=== PATIENT | female | born 1960 | race Caucasian/White ===

== ENCOUNTER 2018-01-29 23:30 | Emergency (ER) | payer OTHER ==
[~2018-01-29] VITALS: Ht 157.5 cm; Wt 113.4 kg
--- NOTE | 2018-01-29 23:56 | NUR ---
PT ARRIVED VIA EMS FROM [facility] BY DR PARIKH FOR REPORTED GENARALIZED WEAKNESS. PT DENIES WEAKNESS, BUT STATES SHE FEELS ITCHY ALL OVER "LIKE THERE ARE BUGS CRAWLING ALL OVER" AND FEELS RESTLESS. APPEARS ANXIOUS AND AGITATED, STATING SHE CANT KEEP STILL AND "NEEDS TO MOVE"
--- NOTE | 2018-01-30 00:04 | NUR ---
DR JOHNY JOVEL MD AT BEDSIDE FOR MSE.
[2018-01-30] MEDS ORDERED: LEVO25TA9 PO (00:09)
[2018-01-30] MEDS ORDERED: METO50TA16 PO (00:09)
[2018-01-30] MEDS ORDERED: ALBU18HF2 IH (00:09)
[2018-01-30] MEDS ORDERED: DIVA500T2 PO (00:09)
[2018-01-30] MEDS ORDERED: LEVO200T9 PO (00:09)
[2018-01-30] MEDS ORDERED: diphenhydrAMINE 50 MG/1 ML VIAL ONE ×2 (00:09→02:44)
[2018-01-30] MEDS ORDERED: OMEP20CA10 PO (00:09)
[2018-01-30] MEDS ORDERED: DOCU100C36 PO (00:09)
[2018-01-30] MEDS ORDERED: QUET200T PO (00:09)
[2018-01-30] MEDS ORDERED: SIMV20TA6 PO (00:09)
[2018-01-30] MEDS ORDERED: ASPI-605 PO (00:09)
[2018-01-30] MEDS ORDERED: LORA-259 PO (00:09)
[2018-01-30] MEDS ORDERED: diphenhydrAMINE 50 MG/1 ML VIAL IM ONE ×2 (00:15→02:00)
--- NOTE | 2018-01-30 00:24 | NUR ---
LAB AT BEDSIDE FOR BLOOD DRAW.
--- NOTE | 2018-01-30 00:31 | NUR ---
XRAY AT PT BEDSIDE.
[2018-01-30 00:32] LABS: BASOPHILS # (AUTO) 0.1 K/uL (0.0-8.0); BASOPHILS % (AUTO) 1.2 % (0.0-2.0); EOSINOPHILS # (AUTO) 0.1 K/uL (0.0-0.7); EOSINOPHILS % (AUTO) 2.3 % (0.0-7.0); HEMATOCRIT 39.6 % (31.2-41.9); HEMOGLOBIN 13.5 g/dL (10.9-14.3); LYMPHOCYTES # (AUTO) 2.7 K/uL (20.0-40.0); MEAN CORPUSCULAR HEMOGLOBIN 30.6 uug (24.7-32.8); MEAN CORPUSCULAR HGB CONC 34 g/dL (32.3-35.6); MEAN CORPUSCULAR VOLUME 90.1 fL (75.5-95.3); MONOCYTES # (AUTO) 0.8 K/uL (2.0-10.0); MONOCYTES % (AUTO) 12.2 % (0.0-11.0); NEUTROPHILS # (AUTO) 2.7 K/uL (1.8-8.9); NEUTROPHILS % (AUTO) 42.3 % (38.5-71.5); PLATELET COUNT (AUTO) 210 K/uL (179-408); WHITE BLOOD COUNT (AUTO) 6.4 K/uL (3.8-11.8)
--- NOTE | 2018-01-30 00:33 | NUR ---
CALLED STOCK DIGGER TO GET 1:1 SITTER.
[2018-01-30 00:46] LABS: ETHANOL < 3 MG/DL (0-0)
[2018-01-30 00:48] LABS: ALANINE AMINOTRANSFERASE 19 U/L (14-59); ALKALINE PHOSPHATASE 45 U/L (50-136); ASPARTATE AMINOTRANSFERASE 12 U/L (15-37); BILIRUBIN,DIRECT 0.1 mg/dL (0.0-0.2); BILIRUBIN,TOTAL 0.3 mg/dL (0.2-1.0); CARBON DIOXIDE 28 mmol/L (21-32); CHLORIDE 107 mmol/L (98-107); CREATININE 0.8 mg/dL (0.6-1.3); GLUCOSE 96 mg/dL (74-106); POTASSIUM 3.8 mmol/L (3.5-5.1); TOTAL PROTEIN, SERUM 6.9 g/dL (6.4-8.2); UREA NITROGEN, BLOOD 14 mg/dL (7-18)
[2018-01-30 00:49] LABS: ACETAMINOPHEN < 2.0 ug/mL (10-30)
--- NOTE | 2018-01-30 01:00 | NUR ---
PT TAKEN TO BATHROOM VIA WHEELCHAIR. PATIENT IS 1X ASSIST. URINE PROVIDED AND SENT TO LAB.
--- NOTE | 2018-01-30 01:06 | NUR ---
CLARENCE NGUYEN CALLED FOR CRISIS EVAL. LEFT A MESSAGE. PENDING CALL BACK
[2018-01-30 01:14] LABS: *BILIRUBIN,URIN NEGATIVE (NEGATIVE); *BLOOD, URINE Trace-lysed (NEGATIVE); *CLARITY,URINE CLEAR (CLEAR); *COLOR,URINE YELLOW (YELLOW); *KETONES,URINE TRACE (NEGATIVE); *PROTEIN,URINE TRACE (NEGATIVE); *UROBILINOGEN,URINE 0.2 E.U./dl (NORMAL); LEUKOCYTE ESTERASE ,URINE TRACE (NEGATIVE); NITRITE, URINE NEGATIVE (NEGATIVE); UGLUCOSE NEGATIVE (NEGATIVE)
--- NOTE | 2018-01-30 01:26 | NUR ---
PT REPOSITIONED FOR COMFORT, AND WATCHING TV. NO ACUTE DISTRESS NOTED.
[2018-01-30 01:28] LABS: *AMPHETAMINE, URINE NEGATIVE (NEGATIVE); *BARBITURATE, URINE NEGATIVE (NEGATIVE); *CANNABINOID, URINE NEGATIVE (NEGATIVE); *COCCAINE, URINE NEGATIVE (NEGATIVE); *OPIATE, URINE NEGATIVE (NEGATIVE); *PHENCYCLIDINE SCREEN,URINE NEGATIVE (NEGATIVE)
[2018-01-30 01:33] LABS: BACTERIA,URINE NONE SEEN /HPF (NONE SEEN); RBC,URINE 0-3 /HPF (0-3); SQUAMOUS EPITHELIAL CELL,UR FEW /HPF (NONE SEEN)
--- NOTE | 2018-01-30 01:41 | NUR ---
SPOKE TO CLARENCE NGUYEN, ETA 0500 FOR EVAL.
--- NOTE | 2018-01-30 02:28 | NUR ---
PT RESTING IN BED W/ EYES CLOSED. NO SIGNS OF ACUTE DISTRESS NOTED.
--- NOTE | 2018-01-30 03:10 | NUR ---
PT MOVED TO WHEELCHAIR PER PT REQUEST, AND PROVIDED SNACK.
--- NOTE | 2018-01-30 03:45 | NUR ---
PT BACK IN BED AND WATCHING TV. PT STATES "I JUST DONT WANT TO LIVE LIKE THIS ANYMORE" BUT REFUSES TO ELABORATE WHEN ASKED.
[2018-01-30] MEDS ORDERED: LORAZEPAM 2 MG/1 ML VIAL ONE ×2 (04:08→10:26)
[2018-01-30] MEDS: LORAZEPAM 0.5 MG TABLET PO ONE ×2 (04:15→06:04)
--- NOTE | 2018-01-30 05:22 | NUR ---
CLARENCE NGUYEN AT BEDSIDE FOR EVAL.
[2018-01-30] MEDS ORDERED: OLANZAPINE 5 MG TABLET PO ONE (05:45)
[2018-01-30] MEDS ORDERED: CETIRIZINE HCL 10 MG TABLET ONE (05:47)
[2018-01-30] MEDS ORDERED: OLANZAPINE 5 MG TABLET ONE (05:49)
--- NOTE | 2018-01-30 06:05 | NUR ---
PENDING ADMISSION APPROVAL FROM [facility] FOR VOLUNTARY ADMIT PER CLARENCE NGUYEN. SUMMARY REPORT FAXED. PENDING RESPONSE.
[2018-01-30] MEDS ORDERED: LORAZEPAM 2 MG/1 ML VIAL IM ONE ×2 (06:15→10:30)
--- NOTE | 2018-01-30 07:18 | NUR ---
REPORT GIVEN TO SCOTT OSORIO.
--- NOTE | 2018-01-30 08:06 | NUR ---
PT IS SLEEPING IN BED COMFORTABLY. NO S/S OF ACUTE DISTRESS AT THIS TIME.
--- NOTE | 2018-01-30 09:30 | NUR ---
PT D/C'd FROM [facility] ER VOLUNTARY ADMISSION TO [facility] ACCORDING DR JOHNY HERRMANN AND CLARENCE ALMANZAR.
--- NOTE | 2018-01-30 09:34 | NUR ---
REPORT WAS GIVEN TO SCOTT GRANT FROM [facility]. PT WAS TRANSFERED TO [facility] , UNIT P-6, ROOM 606B, VIA BLS AMBULANCE. REPORT WAS GIVEN TO AMBULANCE EMT.
[2018-01-30 10:43] VITALS: BP 152/88
== END 2018-01-30 10:54 | disposition home or self-care (01) ==
LOC: ER 23:39
DX: Z04.6 Encounter for general psychiatric examination, requested by authority (principal); F32.9 Major depressive disorder, single episode, unspecified; I10 Essential (primary) hypertension; E78.5 Hyperlipidemia, unspecified; J45.909 Unspecified asthma, uncomplicated; K21.9 Gastro-esophageal reflux disease without esophagitis; E03.9 Hypothyroidism, unspecified; G89.29 Other chronic pain; Z88.0 Allergy status to penicillin; Z91.041 Radiographic dye allergy status; Z79.899 Other long term (current) drug therapy; Z79.82 Long term (current) use of aspirin
CPT/HCPCS: 36415; 71045; 80307; 85025; 93005; A4663; G0480; G0480-TC; J1200; J2060

== ENCOUNTER 2018-05-29 17:19 | Inpatient (IN) | payer OTHER ==
[~2018-05-29] VITALS: Ht 157.5 cm; Wt 136.1 kg
[~2018-05-29 17:19] MED LIST: ALBU18HF2 IH; ASPI-605 PO; DIVA500T2 PO; DOCU100C36 PO; LEVO200T9 PO; LEVO25TA9 PO; LORA-259 PO; METO50TA16 PO; OMEP20CA10 PO; QUET200T PO; SIMV20TA6 PO
[2018-05-29] MEDS ORDERED: DIPH50CA38 PO (17:58)
[2018-05-29] MEDS ORDERED: OLAN10TA3 PO (17:58)
[2018-05-29] MEDS ORDERED: ESCI10TA55 PO (17:58)
[2018-05-29] MEDS ORDERED: CLOT45CR7 TOP (17:58)
[2018-05-29] MEDS ORDERED: MELO-107 PO (17:59)
[2018-05-29] MEDS ORDERED: MORPHINE SULFATE 2 MG/1 ML DISP.SYRIN IM ONE (18:00)
[2018-05-29] MEDS ORDERED: ONDANSETRON HCL 4 MG TABLET PO ONE (18:00)
[2018-05-29] MEDS ORDERED: ONDANSETRON 4 MG/2 ML VIAL ONE (18:20)
[2018-05-29] MEDS ORDERED: MORPHINE SULFATE 4 MG/1 ML DISP.SYRIN ONE (18:20)
[2018-05-29] MEDS ORDERED: MORPHINE SULFATE 2 MG/1 ML DISP.SYRIN ONE (18:21)
--- NOTE | 2018-05-29 19:00 | NUR ---
Received handoff report from Ryann CHAVEZ. Assumed care of pt at this time. Pt is resting in bed, eating sandwich. Vital signs stable. NAD noted.
--- NOTE | 2018-05-29 19:11 | NUR ---
Paged [facility] for MD to MD call.
--- NOTE | 2018-05-29 19:30 | NUR ---
Paged [facility] for Panel Call.
[2018-05-29] MEDS ORDERED: OXYCODONE/APAP 5-325 MG TABLET PO ONE (20:00)
[2018-05-29] MEDS ORDERED: OXYCODONE/APAP 5-325 MG TABLET ONE (20:08)
--- NOTE | 2018-05-29 20:13 | NUR ---
Pt. admitted to Med/Surg , under care of Dr. Cachorro Foster. Diagnosis: Intractable Back Pain. Belongs List completed. MRSA swab done. Report given to Alma CHAVEZ.
[2018-05-29] MEDS ORDERED: ALBUTEROL SULFATE 8 GM HFA.AER.AD IH PRN (20:15)
[2018-05-29] MEDS ORDERED: DIVALPROEX 500 MG TABLET.DR PO SCH (20:15)
[2018-05-29] MEDS ORDERED: ZOLPIDEM 5 MG TABLET PO PRN (20:30)
[2018-05-29] MEDS ORDERED: HYDROCODONE/APAP 10-325 MG TABLET PO PRN (20:30)
[2018-05-29] MEDS ORDERED: MAGNESIUM HYDROXIDE 30 ML LIQUID UDC PO PRN (20:30)
[2018-05-29] MEDS ORDERED: ALBUTEROL SULFATE 2.5 MG/3 ML NEBU NEB PRN (20:30)
[2018-05-29] MEDS ORDERED: Z GUARD REMEDY PASTE 57 GM TUBE TOP PRN (20:30)
[2018-05-29] MEDS ORDERED: HYDROCODONE/APAP 5-325MG TABLET PO PRN (20:30)
[2018-05-29] MEDS ORDERED: ACETAMINOPHEN 325 MG TABLET PO PRN (20:30)
[2018-05-29 20:49] VITALS: BP 138/61
[2018-05-29] MEDS: METOPROLOL TARTRATE 50 MG TABLET PO SCH (20:53)
[2018-05-29] MEDS: OLANZAPINE 5 MG TABLET PO SCH (20:53)
[2018-05-29] MEDS: ENOXAPARIN SODIUM 40 MG/0.4 ML DISP.SYRIN SQ SCH (20:56)
[2018-05-29] MEDS ORDERED: diphenhydrAMINE 50 MG CAPSULE PO SCH (21:00)
[2018-05-29] MEDS ORDERED: diphenhydrAMINE 50 MG CAPSULE PO PRN (21:00)
--- NOTE | 2018-05-29 21:00 | NUR ---
RECEIVED PT FROM ER VIA [facility]. PT IS AWAKE, ALERT, AND ORIENTEDX4. PT ADMITTED TO MED SURG UNDER THE CARE OF DR. TED SANDOVAL.DX:INTRACTABLE BACK PAIN. BELONGING LIST DONE. ADMISSION PROCESS AND CARE PLAN INITIATED. USP ASSESSMENT DONE. PT HAD BRUISE ON HER BACK AND A PICTURE OF HER RIGHT LEGS. CALL LIGHT WITHIN REACH. WILL CONTINUE TO MONITOR.
[2018-05-30] MEDS: ONDANSETRON 4 MG/2 ML VIAL IV PRN ×3 (01:39→16:13)
[2018-05-30 04:45] VITALS: BP 141/57
[2018-05-30 04:46] VITALS: BP 130/58
[2018-05-30] MEDS: MORPHINE SULFATE 2 MG/1 ML DISP.SYRIN IV PRN (04:48)
--- NOTE | 2018-05-30 06:12 | NUR ---
PT SLEPT THROUGHOUT THE SHIFT. PT SHOWS NO SIGNS OF DISTRESS. PT IV INTACT AND PATENT. PRESCRIBED MEDICATION GIVEN AND PT TOLERATED IT WELL.PAIN MANAGEMENT DONE.PT GIVEN ZOFRAN AT 0139H FOR NAUSEOUS. GIVEN NORCO 5-325MG AT 0008H AND MORPHINE AT 0448H FOR SEVERE PAIN. SHE COMPLAIN OF GENERALIZED PAIN AND PAIN ON HER HEAD. SAFETY AND COMFORT PROVIDED. ALL NEEDS ARE MET. WILL ENDORSE ACCORDINGLY TO INCOMING DAYSHIFT NURSE.
[2018-05-30] MEDS ORDERED: LEVOTHYROXINE SODIUM 25 MCG TABLET PO SCH (07:00)
[2018-05-30] MEDS ORDERED: LEVOTHYROXINE SODIUM 200 MCG TABLET PO SCH (07:00)
[2018-05-30 07:14] LABS: BASOPHILS # (AUTO) 0.1 K/uL (0.0-8.0); BASOPHILS % (AUTO) 0.7 % (0.0-2.0); EOSINOPHILS # (AUTO) 0.1 K/uL (0.0-0.7); EOSINOPHILS % (AUTO) 0.7 % (0.0-7.0); HEMATOCRIT 40.9 % (31.2-41.9); HEMOGLOBIN 13.4 g/dL (10.9-14.3); LYMPHOCYTES # (AUTO) 1.2 K/uL (20.0-40.0); LYMPHOCYTES % (AUTO) 14.7 % (20.5-51.5); MEAN CORPUSCULAR HEMOGLOBIN 29.7 uug (24.7-32.8); MEAN CORPUSCULAR HGB CONC 33 g/dL (32.3-35.6); MEAN CORPUSCULAR VOLUME 90.6 fL (75.5-95.3); MONOCYTES # (AUTO) 0.5 K/uL (2.0-10.0); MONOCYTES % (AUTO) 6.5 % (0.0-11.0); NEUTROPHILS # (AUTO) 6.3 K/uL (1.8-8.9); NEUTROPHILS % (AUTO) 77.4 % (38.5-71.5); PLATELET COUNT (AUTO) 250 K/uL (179-408); RED BLOOD CELL COUNT(AUTO) 4.52 MIL/uL (3.63-4.92); WHITE BLOOD COUNT (AUTO) 8.2 K/uL (3.8-11.8)
[2018-05-30 07:32] LABS: CARBON DIOXIDE 28 mmol/L (21-32); CHLORIDE 107 mmol/L (98-107); CHOLESTEROL 225 mg/dL (<200); CREATININE 0.7 mg/dL (0.6-1.3); GLUCOSE 125 mg/dL (74-106); HDL CHOLESTEROL 60 mg/dL (40-60); MAGNESIUM 2.2 mg/dL (1.8-2.4); PHOSPHOROUS 5.1 mg/dL (2.5-4.9); POTASSIUM 4.8 mmol/L (3.5-5.1); TRIGLYCERIDES 151 MG/DL (30-150); UREA NITROGEN, BLOOD 21 mg/dL (7-18)
[2018-05-30 07:58] LABS: THYROID STIMULATING HORMONE < 0.007 mIU/mL (0.358-3.740)
[2018-05-30] MEDS ORDERED: CLOTRIMAZOLE 1% VAG CREAM 45 GM TUBE VG SCH (09:00)
[2018-05-30] MEDS: DOCUSATE SODIUM 100 MG CAPSULE PO SCH ×2 (09:30→16:12)
[2018-05-30] MEDS: ASPIRIN EC 81 MG TABLET.DR PO SCH (09:30)
[2018-05-30] MEDS: SIMVASTATIN 20 MG TABLET PO SCH (09:31)
[2018-05-30] MEDS: DIVALPROEX 250 MG TABLET.DR PO SCH ×2 (09:31→16:12)
[2018-05-30] MEDS: ESCITALOPRAM OXALATE 10 MG TABLET PO SCH (09:31)
[2018-05-30] MEDS: CLOTRIMAZOLE 1% CREAM 30 GM TUBE TOP SCH ×2 (09:32→16:12)
[2018-05-30] MEDS: METOPROLOL TARTRATE 50 MG TABLET PO SCH ×2 (09:32→20:24)
--- NOTE | 2018-05-30 10:00 | NUR ---
Pt is alert and oriented. Able to follow commands but noted very drowsy. Pt has been sleeping most of the morning.
[2018-05-30 11:14] VITALS: BP 94/46
[2018-05-30] MEDS ORDERED: IV NORMAL SALINE 250 ML IV ONE (12:54)
[2018-05-30] MEDS ORDERED: SWABABLE VALVE TRANSFER SET EA MC ONE (12:54)
[2018-05-30] MEDS ORDERED: IOHEXOL 300MG/ML 100 ML INFUS..BTL ONE (12:54)
--- NOTE | 2018-05-30 13:00 | NUR ---
Pt noted to be sleeping, arousable to name. Noted the pt drowsy but able to answer questions regarding the contrast consent form
--- NOTE | 2018-05-30 13:22 | NUR ---
Per Dr. Foster cancel CT of the Abdomen with and without contrast. Pt is allergic to Iodine. Orders for Sonogram of the kidneys instead, noted and carried out
--- NOTE | 2018-05-30 14:13 | NUR ---
MD aware pt is noted drowsy and pt states she might be allergic to [place]. Pt is requesting Percocet 10. Dr. Foster stated OK. Percocet will be ordered.
[2018-05-30] MEDS: OXYCODONE/APAP 5-325 MG TABLET PO PRN ×2 (15:15→20:48)
[2018-05-30 15:32] VITALS: BP 109/51
--- NOTE | 2018-05-30 16:47 | NUR ---
MD aware that pt states she takes 225mcg levothyroxine and Ativan 2mg, waiting for orders
--- NOTE | 2018-05-30 17:07 | NUR ---
Per MD: no Levothyroxine TSH is less than 0.007 but okay for Ativan orders
[2018-05-30 19:20] VITALS: BP 138/81
--- NOTE | 2018-05-30 19:45 | NUR ---
RECEIVED PATIENT ASLEEP IN BED. EASILY AROUSABLE. DENIES PAIN AT THIS TIME. ON O2 2L NC. VSS. NO RESP. DISTRESS NOTED. CALL LIGHT IN REACH .ALL NEEDS ATTENDED. WILL CONTINUE TO MONITOR AND ASSESS.
[2018-05-30] MEDS: OLANZAPINE 5 MG TABLET PO SCH (20:24)
[2018-05-30] MEDS: ENOXAPARIN SODIUM 40 MG/0.4 ML DISP.SYRIN SQ SCH ×3 (20:24→21:04)
--- NOTE | 2018-05-30 20:48 | NUR ---
PATIENT AWAKE IN BED. C/O PAIN, GENERALIZED, STATING SHE "FELL OUT OF HER W/C AND PAIN IS ALL OVER." PATIENT GIVEN PERCOCET 2 TAB PO PRN FOR PAIN. VSS. ON O2 2L NC SATING 96%. CALL LIGHT IN REACH. ALL NEEDS ATTENDED. WILL CONTINUE TO MONITOR AND ASSESS.
[2018-05-30] MEDS: LORAZEPAM 1 MG TABLET PO PRN (21:19)
--- NOTE | 2018-05-30 21:20 | NUR ---
PATIENT AWAKE, SITTING AT EDGE OF BED. A/O X4. VERY SHAKY AND ANXIOUS. PATIENT GIVEN ATIVAN 2MG PO PRN ORDERED FOR ANXIETY. VSS. CONTINUED ON O2. CALL LIGHT IN REACH. ALL NEEDS ATTENDED. WILL CONTINUE TO MONITOR AND ASSESS.
--- NOTE | 2018-05-30 22:45 | NUR ---
PATIENT ASLEEP IN BED. NO S/S OF ANY SOB OR RESP. DISTRESS. O2 IN PLACE. BED ALARM ON. CALL LIGHT IN REACH. ALL NEEDS ATTENDED. WILL CONTINUE TO MONITOR AND ASSESS.
[2018-05-31] MEDS: ONDANSETRON 4 MG/2 ML VIAL IV PRN ×3 (01:29→17:40)
--- NOTE | 2018-05-31 01:30 | NUR ---
PATIENT AWAKE, C/O NAUSEA. PATIENT GIVEN ZOFRAN 4MG IV PRN PER RN. CALL LIGHT IN REACH. ALL NEEDS ATTENDED. WILL CONTINUE TO MONITOR AND ASSESS.
--- NOTE | 2018-05-31 02:30 | NUR ---
PATIENT ASLEEP. RESTING WELL. CALL LIGHT IN REACH. ALL NEEDS ATTENDED. WILL CONTINUE TO MONITOR AND ASSESS.
[2018-05-31 03:42] VITALS: BP 127/73
--- NOTE | 2018-05-31 06:24 | NUR ---
PATIENT ASLEEP IN BED. SLEPT AT INTERVALS. VSS. CALL LIGHT IN REACH. ALL NEEDS ATTENDED. WILL CONTINUE TO MONITOR AND ASSESS.
[2018-05-31 07:24] LABS: BASOPHILS % (AUTO) 0.3 % (0.0-2.0); EOSINOPHILS % (AUTO) 0.1 % (0.0-7.0); HEMATOCRIT 38.1 % (31.2-41.9); HEMOGLOBIN 12.4 g/dL (10.9-14.3); LYMPHOCYTES % (AUTO) 15.3 % (20.5-51.5); MEAN CORPUSCULAR HEMOGLOBIN 29.7 uug (24.7-32.8); MEAN CORPUSCULAR HGB CONC 33 g/dL (32.3-35.6); MEAN CORPUSCULAR VOLUME 91.1 fL (75.5-95.3); MONOCYTES # (AUTO) 0.4 K/uL (2.0-10.0); MONOCYTES % (AUTO) 5.8 % (0.0-11.0); NEUTROPHILS # (AUTO) 5.3 K/uL (1.8-8.9); NEUTROPHILS % (AUTO) 78.5 % (38.5-71.5); PLATELET COUNT (AUTO) 234 K/uL (179-408); RED BLOOD CELL COUNT(AUTO) 4.19 MIL/uL (3.63-4.92); WHITE BLOOD COUNT (AUTO) 6.7 K/uL (3.8-11.8)
--- NOTE | 2018-05-31 07:30 | NUR ---
Rec'd full bedside SBAR report from nightshift RN. Pt in bed asleep. Arousable to name, goes back to sleep right after. Pt denies pain at this time. Denies nausea. On 2L O2 via n/c, no SOB noted. L hand 20g heplock in place. No acute distress noted at this time. Will continue to monitor.
[2018-05-31 07:33] LABS: BILIRUBIN,TOTAL 0.2 mg/dL (0.2-1.0); CREATININE 0.7 mg/dL (0.6-1.3); MAGNESIUM 2.4 mg/dL (1.8-2.4); POTASSIUM 4.9 mmol/L (3.5-5.1); TOTAL PROTEIN, SERUM 6.9 g/dL (6.4-8.2)
[2018-05-31 08:10] VITALS: BP 139/66
[2018-05-31] MEDS: METOPROLOL TARTRATE 50 MG TABLET PO SCH ×3 (08:30→20:33)
[2018-05-31] MEDS: DOCUSATE SODIUM 100 MG CAPSULE PO SCH ×3 (08:30→17:33)
[2018-05-31] MEDS: DIVALPROEX 250 MG TABLET.DR PO SCH ×3 (08:30→17:33)
[2018-05-31] MEDS: ASPIRIN EC 81 MG TABLET.DR PO SCH ×2 (08:30→09:00)
[2018-05-31] MEDS: SIMVASTATIN 20 MG TABLET PO SCH ×2 (08:30→09:00)
[2018-05-31] MEDS: ESCITALOPRAM OXALATE 10 MG TABLET PO SCH ×2 (08:30→09:00)
[2018-05-31] MEDS: CLOTRIMAZOLE 1% CREAM 30 GM TUBE TOP SCH ×2 (08:31→17:34)
--- NOTE | 2018-05-31 09:50 | NUR ---
PO morning medications held. Pt appears lethargic. High risk for aspiration. Will follow up with MD.
--- NOTE | 2018-05-31 10:00 | NUR ---
Pt seen and examined by Dr. Chaudhry for pulmonary consult. Relayed pt has been sleeping most of the day yesterday per nurse's report. Relayed pt is arousable to name and then immediately falls back asleep and starts to snore. Per MD, he will order ABGs.
[2018-05-31 10:31] LABS: ABG BASE EXCESS 0.5 mmol/L; ABG HCO3 28.9 mmol/L; ABG PCO2 64.9 mmHg (35.0-45.0); ABG PH 7.266 (7.350-7.450); ABG PO2 74.6 mmHg (75.0-100.0); ABG SITE RIGHT RADIAL; ABG TOTAL HEMOGLOBIN 12.8 G/dL (12.0-16.0); COHb 1.5 % (0.5-1.5); MetHb 0.3 % (0.0-1.5); O2Hb 93.6 % (94.0-97.0); VENT MODE Nasal Cannula
--- NOTE | 2018-05-31 10:56 | NUR ---
Rec'd pt's ABG results. Paged Dr. Chaudhry c/o Feroz. Awaiting call back.
[2018-05-31 11:18] VITALS: BP 138/68
--- NOTE | 2018-05-31 11:20 | NUR ---
Repaged Dr. Chaudhry c/o Debbie. Awaiting call back.
--- NOTE | 2018-05-31 11:32 | NUR ---
Dr. Krishnan in-house. Made aware of pt's ABG results with new verbal order for BiPap Rate of 18 15/5. Verbal order read back and verified. Per MD, he did see the pt's liver u/s results with no new orders at this time.
--- NOTE | 2018-05-31 11:45 | NUR ---
PT PLACED ON BIPAP 15/5, RR 18, FIO2 32% PER MD ORDERS. PT NOT TOLERATING TOO WELL AT THIS TIME. ATTEMPTS TO TAKE MASK OFF; FINDS IT UNCOMFORTABLE. EXPLAINED TO PT THE BENEFITS OF BIPAP. PT STATED SHE DOES NOT WANT MASK ON FOR TOO LONG. NURSE AWARE. AMBU BAG AT BEDSIDE. ALARMS ARE ON AND AUDIBLE. WILL CONTINUE TO MONITOR. ABG IN 1 HR.
--- NOTE | 2018-05-31 12:06 | NUR ---
Telephone call to Dr. Hudson. Relayed pt's Liver Ultrasound results: Enlarged echogenic liver representing fatty infiltration or hepatocellular disease and Cholelithiasis without ultrasound evidence of cholecystitis. Relayed pt continues to be nauseous with x1 episode of scant emesis, managed with Zofran IV PRN. Per Dr. Hudson, no new orders at this time.
--- NOTE | 2018-05-31 12:29 | NUR ---
Report received from rn. Ocampo, at exactly 1145 patient placed on BIPAP by RT. Liu with the following settings BIPAP15/5, R 18, FIO2 at 32%. Orders for a follow up ABG at 1250 per protocol. Neuro gonzáles patient arousable to verbal command, drowsy. sbp within desire limits. On telemetry monitoring with SR ranging from 70's to 80's Addendum: 05/31/18 at 1238 by CHULA LABOY RN As reported patient found with a bag of pills at bedside pt. stating its tylenol. unknown if she took any. Dr. Ivory notified. see orders.
--- NOTE | 2018-05-31 12:41 | NUR ---
Rec'd call from Dr. Chaudhry and relayed pt's ABG results. Relayed Dr. Krishnan started pt on Bipap rate 18, 25/02. Per Dr. Chaudhry, pt does not need to be on Bipap and only needs pain meds to be reduced. Reported to MD pt has not rec'd pain this shift and last dose was with noc shift. Per MD, may continue Bipap as PRN, Titrate O2 to maintain O2Sat 88-92%, and to reduce pain medications given.
[2018-05-31 13:18] LABS: ABG BASE EXCESS 2.1 mmol/L; ABG HCO3 28.7 mmol/L; ABG PCO2 53.3 mmHg (35.0-45.0); ABG PH 7.349 (7.350-7.450); ABG PO2 103.6 mmHg (75.0-100.0); ABG SITE RIGHT RADIAL; ABG TOTAL HEMOGLOBIN 12.5 G/dL (12.0-16.0); COHb 1.4 % (0.5-1.5); MetHb 0.2 % (0.0-1.5); O2Hb 96.6 % (94.0-97.0); VENT MODE BIPAP
[2018-05-31 15:26] VITALS: BP 123/63
[2018-05-31 19:00] VITALS: BP 166/75
--- NOTE | 2018-05-31 20:00 | NUR ---
Pt drowsy, states never feels rested. c/o generalized pain, expressing need for pain and sleeping meds. Anxious and feels hopeless about overall condition. Needs a lot of psychological support and TLC. Able to ambulate slowly to bathroom with supervision for hygiene and elimination needs. Gets SOB with exertion. O2 1L/min in use. Nursing comfort measures and fall/safety precautions observed at all times. All teachings reinforced.
[2018-05-31] MEDS: OLANZAPINE 5 MG TABLET PO SCH (20:33)
[2018-05-31] MEDS: LORAZEPAM 1 MG TABLET PO PRN (20:34)
[2018-05-31] MEDS: ENOXAPARIN SODIUM 40 MG/0.4 ML DISP.SYRIN SQ SCH (20:35)
[2018-06-01] VITALS (18 sets, daily range): BP systolic 96–169; BP diastolic 50–106
--- NOTE | 2018-06-01 01:00 | NUR ---
Pt drowsy, keeps eyes closed most of the time but responds readily to questions. Insists on doing usual activities done at home. Shaky but insists on ambulating to bathroom to void and is very unsteady on feet. Voids on floor on the way to bathroom. Bedside commode placed at bedside but unable to tolerate getting up due to drowsiness. Demanding for rodriguez cath for max. comfort and safety. Rodriguez Fr. 18 inserted aseptically and atraumatically with immediate return of large urine. Safety and fall precautions maintained at all times.
--- NOTE | 2018-06-01 01:30 | NUR ---
Pt refused BiPap despite explaining necessity by RT Edenilson and this RN. Will continue to monitor.
[2018-06-01] MEDS: OXYCODONE/APAP 5-325 MG TABLET PO PRN ×2 (04:21→17:11)
[2018-06-01 07:45] LABS: BASOPHILS % (AUTO) 0.3 % (0.0-2.0); EOSINOPHILS % (AUTO) 0.1 % (0.0-7.0); HEMATOCRIT 36.2 % (31.2-41.9); LYMPHOCYTES # (AUTO) 1.5 K/uL (20.0-40.0); MEAN CORPUSCULAR HEMOGLOBIN 29.7 uug (24.7-32.8); MEAN CORPUSCULAR HGB CONC 33 g/dL (32.3-35.6); MONOCYTES # (AUTO) 0.7 K/uL (2.0-10.0); MONOCYTES % (AUTO) 11.5 % (0.0-11.0); NEUTROPHILS # (AUTO) 4.1 K/uL (1.8-8.9); NEUTROPHILS % (AUTO) 65.1 % (38.5-71.5); PLATELET COUNT (AUTO) 215 K/uL (179-408); RED BLOOD CELL COUNT(AUTO) 4.03 MIL/uL (3.63-4.92); WHITE BLOOD COUNT (AUTO) 6.3 K/uL (3.8-11.8)
[2018-06-01 07:52] LABS: CARBON DIOXIDE 33 mmol/L (21-32); CHLORIDE 103 mmol/L (98-107); CREATININE 0.4 mg/dL (0.6-1.3); GLUCOSE 101 mg/dL (74-106); POTASSIUM 3.9 mmol/L (3.5-5.1); UREA NITROGEN, BLOOD 19 mg/dL (7-18)
[2018-06-01] MEDS: ASPIRIN EC 81 MG TABLET.DR PO SCH (08:34)
[2018-06-01] MEDS: DOCUSATE SODIUM 100 MG CAPSULE PO SCH ×2 (08:34→16:19)
[2018-06-01] MEDS: DIVALPROEX 250 MG TABLET.DR PO SCH ×2 (08:34→16:19)
[2018-06-01] MEDS: ESCITALOPRAM OXALATE 10 MG TABLET PO SCH (08:36)
[2018-06-01] MEDS: SIMVASTATIN 20 MG TABLET PO SCH (08:36)
[2018-06-01] MEDS: CLOTRIMAZOLE 1% CREAM 30 GM TUBE TOP SCH ×2 (08:37→16:20)
[2018-06-01] MEDS: METOPROLOL TARTRATE 50 MG TABLET PO SCH ×2 (08:39→20:12)
[2018-06-01] MEDS ORDERED: LORAZEPAM 1 MG TABLET PO PRN (09:45)
[2018-06-01] MEDS ORDERED: OXYCODONE/APAP 5-325 MG TABLET PO PRN ×2 (09:45)
--- NOTE | 2018-06-01 17:45 | NUR ---
Pt converted from SNR to RVR AFIB @160's . Pt was sleeping. PT easily arousable when waken up. VS B/P 117/74 - HR 160's afib, resp 20, o2sat 92% on 1 lit via n/c. Pt denies any c/o sob, chest pain, and anxiety. Placed a call to DR TORRES and DR JEAN N. 1800 DR TORRES Called back notified of new onset of uncontrolled afib and new order received and carried out for Cardizem drip secondary to pt is allergic to IODINE and coundnt be given amiodorone for rapid afib. Pt transferred to ICU per DR Torres and notified DR JEAN. 181 Pt tranferred to ICU. Report given to ICU nurse.
--- NOTE | 2018-06-01 18:53 | NUR ---
patient transferred to ICU for new onset afib with RVR upto 160's dr. pappas consulted, ordered for amiodarone changed to cardizem drip due to cross allergy to iodine. report received from [place] SCOTT.
[2018-06-01] MEDS: DILTIAZEM HCL IV 125 MG in IV DEXTROSE 5% 100 ML IV PRN (19:01)
--- NOTE | 2018-06-01 20:00 | NUR ---
Pt remains drowsy but is readily arousable and verbally responsive. Asking "Am I dying?" Explained rationale for CCU transfer and need for close monitoring. Rhythm still uncontrolled AFib rate up to 140's/min. Cardizem drip titrating (See IV Spreadsheet). Resp easy and regular, on nasal cannula 1 L/min to keep sat 88-92%. Nursing comfort measures and safety precautions observed at all times. Please see CCU flowsheet for full assessment and clinical data.
[2018-06-01] MEDS: SIMVASTATIN 10 MG TABLET PO SCH (20:12)
[2018-06-01] MEDS ORDERED: OLANZAPINE 5 MG TABLET ONE (21:24)
[2018-06-01] MEDS: ENOXAPARIN SODIUM 40 MG/0.4 ML DISP.SYRIN SQ SCH (21:35)
[2018-06-01] MEDS: OLANZAPINE 5 MG TABLET PO SCH (21:35)
[2018-06-02] VITALS (17 sets, daily range): BP systolic 87–134; BP diastolic 42–75
--- NOTE | 2018-06-02 00:30 | NUR ---
Noted to desat as low as 78% when pt takes O2 off in her sleep. Pt reminded to keep O2 on at all times.
[2018-06-02] MEDS: LORAZEPAM 1 MG TABLET PO PRN (02:37)
[2018-06-02] MEDS: OXYCODONE/APAP 5-325 MG TABLET PO PRN ×3 (02:38→23:54)
--- NOTE | 2018-06-02 02:40 | NUR ---
Restless, complaining cannot get comfortable in bed, asking for Ativan and Percocet. Nursing comfort measures done, pillows frequently fixed, back massages rendered, with some relief. Percocet and Ativan PO given.
[2018-06-02] MEDS ORDERED: IV NORMAL SALINE 250 ML IV PRN (04:30)
[2018-06-02 05:40] LABS: CREATININE 0.8 mg/dL (0.6-1.3); MAGNESIUM 2.3 mg/dL (1.8-2.4); PHOSPHOROUS 3.2 mg/dL (2.5-4.9); POTASSIUM 3.8 mmol/L (3.5-5.1)
--- NOTE | 2018-06-02 06:00 | NUR ---
Mostly sleeping, tossing in bed and readily verbally responds (still with eyes closed) to voice and touch. Can get uncooperative saying will go home if remains "trapped with all these wires." Re-explained need for close monitoring while in CCU. Please see CCU flowsheet for trends and clinical data.
[2018-06-02 06:02] LABS: BASOPHILS % (AUTO) 0.6 % (0.0-2.0); EOSINOPHILS # (AUTO) 0.1 K/uL (0.0-0.7); EOSINOPHILS % (AUTO) 1.4 % (0.0-7.0); HEMATOCRIT 36.6 % (31.2-41.9); LYMPHOCYTES # (AUTO) 2.8 K/uL (20.0-40.0); LYMPHOCYTES % (AUTO) 36.4 % (20.5-51.5); MEAN CORPUSCULAR HEMOGLOBIN 29.7 uug (24.7-32.8); MEAN CORPUSCULAR HGB CONC 33 g/dL (32.3-35.6); MEAN CORPUSCULAR VOLUME 90.8 fL (75.5-95.3); MONOCYTES # (AUTO) 1.1 K/uL (2.0-10.0); MONOCYTES % (AUTO) 15.2 % (0.0-11.0); NEUTROPHILS # (AUTO) 3.5 K/uL (1.8-8.9); NEUTROPHILS % (AUTO) 46.4 % (38.5-71.5); PLATELET COUNT (AUTO) 217 K/uL (179-408); RED BLOOD CELL COUNT(AUTO) 4.03 MIL/uL (3.63-4.92); WHITE BLOOD COUNT (AUTO) 7.6 K/uL (3.8-11.8)
[2018-06-02] MEDS: ESCITALOPRAM OXALATE 10 MG TABLET PO SCH (08:28)
[2018-06-02] MEDS: ASPIRIN EC 81 MG TABLET.DR PO SCH (08:28)
[2018-06-02] MEDS: DIVALPROEX 250 MG TABLET.DR PO SCH ×2 (08:28→16:53)
[2018-06-02] MEDS: DOCUSATE SODIUM 100 MG CAPSULE PO SCH ×2 (08:28→16:53)
[2018-06-02] MEDS: METOPROLOL TARTRATE 50 MG TABLET PO SCH (08:28)
[2018-06-02] MEDS: CLOTRIMAZOLE 1% CREAM 30 GM TUBE TOP SCH ×2 (08:29→17:00)
[2018-06-02] MEDS ORDERED: SIMVASTATIN 20 MG TABLET PO SCH (09:00)
--- NOTE | 2018-06-02 09:11 | NUR ---
Dr. Chaudhry here to see pt. Full report given. New orders received.
[2018-06-02 09:22] LABS: ABG BASE EXCESS 7.5 mmol/L; ABG HCO3 34.9 mmol/L; ABG PCO2 62.7 mmHg (35.0-45.0); ABG PH 7.364 (7.350-7.450); ABG PO2 69.3 mmHg (75.0-100.0); ABG SITE RIGHT RADIAL; ABG TOTAL HEMOGLOBIN 12.9 G/dL (12.0-16.0); COHb 1.6 % (0.5-1.5); MetHb 0.2 % (0.0-1.5); O2Hb 92.2 % (94.0-97.0); VENT MODE Nasal Cannula
[2018-06-02 10:07] LABS: BASOPHILS % (MANUAL) 1 % (0-2); EOSINOPHILS % (MANUAL) 1 % (0-8); LYMPHOCYTES % (MANUAL) 37 % (20-40); MONOCYTES % (MANUAL) 16 % (2-10); NEUTROPHILS % (MANUAL) 45 % (42-75)
[2018-06-02] MEDS: DILTIAZEM HCL IV 125 MG in IV DEXTROSE 5% 100 ML IV PRN (10:18)
--- NOTE | 2018-06-02 11:05 | NUR ---
Dr. Jackson and Dr. Cachorro Foster here to see pt. Full report given. New orders received. Addendum: 06/02/18 at 1256 by LUDA COLLIER RN MD's stated that it was okay to downgrade pt to OSMAR status.
[2018-06-02] MEDS: DILTIAZEM HCL CD 240 MG CAP.SR.24H PO SCH (12:12)
--- NOTE | 2018-06-02 12:13 | NUR ---
Spoke with Dr. Jackson regarding pt's low SBP. stated that it was okay to give cardizem PO.
--- NOTE | 2018-06-02 12:35 | NUR ---
Pt transferred to 2nd floor room 214-T with tele box. Pt stable and nad noted upon transfer. All belongings reviewed and brought with the pt.
--- NOTE | 2018-06-02 14:00 | NUR ---
US tech at the bedside for 2D Echocardiogram.
--- NOTE | 2018-06-02 15:09 | NUR ---
Pt reassignment and full SBAR report given to SCOTT Dolan.
--- NOTE | 2018-06-02 15:30 | NUR ---
care assumed from Gely RN Addendum: 06/02/18 at 1611 by AYUSH MENDEZ RN Amended: Links added.
[2018-06-02] MEDS: RIVAROXABAN 10 MG TABLET PO SCH (16:55)
--- NOTE | 2018-06-02 19:22 | NUR ---
Shift report received by slot shift manager SCOTT Cárdenas Addendum: 06/02/18 at 1922 by AYUSH MENDEZ RN Amended: Links added.
[2018-06-02] MEDS: SIMVASTATIN 10 MG TABLET PO SCH (21:09)
[2018-06-02] MEDS: OLANZAPINE 5 MG TABLET PO SCH (21:09)
[2018-06-03] VITALS: BP 139/75
[2018-06-03] MEDS: LORAZEPAM 1 MG TABLET PO PRN (00:04)
[2018-06-03] MEDS ORDERED: ALPRAZOLAM 0.25 MG TABLET PO ONE (03:30)
[2018-06-03 04:00] VITALS: BP 113/71
[2018-06-03 07:48] LABS: CREATININE 0.6 mg/dL (0.6-1.3); MAGNESIUM 2.1 mg/dL (1.8-2.4); PHOSPHOROUS 2.7 mg/dL (2.5-4.9); POTASSIUM 3.4 mmol/L (3.5-5.1)
[2018-06-03 08:00] VITALS: BP 130/95
[2018-06-03 08:05] LABS: BASOPHILS % (AUTO) 0.3 % (0.0-2.0); EOSINOPHILS # (AUTO) 0.2 K/uL (0.0-0.7); EOSINOPHILS % (AUTO) 3.3 % (0.0-7.0); HEMATOCRIT 37.3 % (31.2-41.9); HEMOGLOBIN 12.1 g/dL (10.9-14.3); LYMPHOCYTES # (AUTO) 2.3 K/uL (20.0-40.0); LYMPHOCYTES % (AUTO) 30.3 % (20.5-51.5); MEAN CORPUSCULAR HEMOGLOBIN 28.9 uug (24.7-32.8); MEAN CORPUSCULAR HGB CONC 33 g/dL (32.3-35.6); MEAN CORPUSCULAR VOLUME 88.9 fL (75.5-95.3); MONOCYTES % (AUTO) 13.1 % (0.0-11.0); NEUTROPHILS # (AUTO) 3.9 K/uL (1.8-8.9); PLATELET COUNT (AUTO) 215 K/uL (179-408); RED BLOOD CELL COUNT(AUTO) 4.19 MIL/uL (3.63-4.92); WHITE BLOOD COUNT (AUTO) 7.4 K/uL (3.8-11.8)
[2018-06-03] MEDS ORDERED: METOCLOPRAMIDE HCL 10 MG/2 ML VIAL IV SCH (08:15)
[2018-06-03] MEDS: DOCUSATE SODIUM 100 MG CAPSULE PO SCH ×2 (08:55→17:21)
[2018-06-03] MEDS: DILTIAZEM HCL CD 240 MG CAP.SR.24H PO SCH (08:55)
[2018-06-03] MEDS: DIVALPROEX 250 MG TABLET.DR PO SCH ×2 (08:55→17:21)
[2018-06-03] MEDS: ESCITALOPRAM OXALATE 10 MG TABLET PO SCH (08:55)
--- NOTE | 2018-06-03 09:00 | NUR ---
After sustained A-fib uncontrolled in the 130's 140's Instructor Weaving called and notified. Orders received.
[2018-06-03] MEDS: CLOTRIMAZOLE 1% CREAM 30 GM TUBE TOP SCH ×2 (09:08→17:21)
[2018-06-03] MEDS ORDERED: DILTIAZEM HCL CD 120 MG CAP.SR.24H PO ONE (10:15)
[2018-06-03] MEDS: METOPROLOL TARTRATE 50 MG TABLET PO SCH ×2 (10:29→20:46)
[2018-06-03] MEDS ORDERED: POTASSIUM CHLORIDE 20 MEQ TAB.PRT.SR PO ONE (11:00)
[2018-06-03 11:54] VITALS: BP 94/64
[2018-06-03 13:13] LABS: ABG BASE EXCESS 5.5 mmol/L; ABG HCO3 30.7 mmol/L; ABG PCO2 47.3 mmHg (35.0-45.0); ABG PO2 77.7 mmHg (75.0-100.0); ABG SITE RIGHT RADIAL; ABG TOTAL HEMOGLOBIN 12.9 G/dL (12.0-16.0); COHb 1.1 % (0.5-1.5); MetHb 0.1 % (0.0-1.5); O2Hb 94.8 % (94.0-97.0); VENT MODE Nasal Cannula
[2018-06-03 15:50] VITALS: BP 123/75
[2018-06-03] MEDS: RIVAROXABAN 10 MG TABLET PO SCH (17:22)
--- NOTE | 2018-06-03 19:30 | NUR ---
PT ALERT AWAKE AND ORIENTED IN NO ACUTE DISTRESS. ELASTIC YARN TWISTER SHOWING CONTROLLED A-FIB AT THIS TIME. DENIES ANY CHEST PAIN, HEADACHES, OR SOB. ABLE TO FOLLOW SIMPLE COMMANDS AND MAKE NEEDS NOWN. MAINTAINING OXYGEN AT 1L/MIN VIA N/C. F/C INTACT AND DRAINING WELL. WILL CONTINUE TO MONITOR. CALL LIGHT WITHIN REACH. ENCOURAGED PT ON REPOSITIONING EVERY 2 HRS.
[2018-06-03 20:00] VITALS: BP 140/78
[2018-06-03] MEDS: SIMVASTATIN 10 MG TABLET PO SCH (20:46)
[2018-06-03] MEDS: OLANZAPINE 5 MG TABLET PO SCH (20:46)
[2018-06-04] VITALS (8 sets, daily range): BP systolic 105–147; BP diastolic 54–85
[2018-06-04] MEDS: OXYCODONE/APAP 5-325 MG TABLET PO PRN ×2 (00:06→22:08)
[2018-06-04] MEDS: LORAZEPAM 1 MG TABLET PO PRN ×2 (00:07→23:22)
--- NOTE | 2018-06-04 01:00 | NUR ---
DIGITAL EDITOR PRESENT WITH UNCONTROLLED A-FIB FROM 95-110 BPM BUT ASYMPTOMATIC. NO C/O OF SOB OR PAIN SINCE RECEIVING BREATHING TX AND PERCOCET. PT REPOSITIONED WITH HOB MAINTAINED 30 DEGREES. WILL CONTINUE TO MONITOR.
--- NOTE | 2018-06-04 05:30 | NUR ---
PATIENT REMAINS A-FIB UP TO 110 BPM. ABLE TO BE ASSISTED FROM BED TO CHAIR FOR 1 HR AND THEN BACK TO BED WITHOUT DIFFICULTY. REMAINING ON OXYGEN 2L/MIN AT 96%. NO NEW ORDERS AT THIS TIME. ABLE TO FOLLOW SIMPLE COMMANDS. REMINDED PATIENT OF SAFETY MEASURES AND TO LIMIT FOOD INTAKE AND ENCOURAGED DEEP BREATHING INTAKE. WILL CONTINUE TO MONITOR. CALL LIGHT WITHIN REACH.
[2018-06-04 06:53] LABS: BASOPHILS # (AUTO) 0.1 K/uL (0.0-8.0); BASOPHILS % (AUTO) 0.6 % (0.0-2.0); EOSINOPHILS # (AUTO) 0.3 K/uL (0.0-0.7); EOSINOPHILS % (AUTO) 2.9 % (0.0-7.0); HEMATOCRIT 38.3 % (31.2-41.9); HEMOGLOBIN 12.6 g/dL (10.9-14.3); LYMPHOCYTES # (AUTO) 2.8 K/uL (20.0-40.0); LYMPHOCYTES % (AUTO) 32.2 % (20.5-51.5); MEAN CORPUSCULAR HEMOGLOBIN 29.2 uug (24.7-32.8); MEAN CORPUSCULAR HGB CONC 33 g/dL (32.3-35.6); MEAN CORPUSCULAR VOLUME 88.6 fL (75.5-95.3); NEUTROPHILS # (AUTO) 4.7 K/uL (1.8-8.9); NEUTROPHILS % (AUTO) 53.3 % (38.5-71.5); PLATELET COUNT (AUTO) 262 K/uL (179-408); RED BLOOD CELL COUNT(AUTO) 4.32 MIL/uL (3.63-4.92); WHITE BLOOD COUNT (AUTO) 8.9 K/uL (3.8-11.8)
[2018-06-04 07:28] LABS: BILIRUBIN,TOTAL 0.4 mg/dL (0.2-1.0); CREATININE 0.7 mg/dL (0.6-1.3); MAGNESIUM 2.1 mg/dL (1.8-2.4); POTASSIUM 3.7 mmol/L (3.5-5.1); TOTAL PROTEIN, SERUM 6.5 g/dL (6.4-8.2)
[2018-06-04] MEDS: DOCUSATE SODIUM 100 MG CAPSULE PO SCH ×2 (08:03→16:25)
[2018-06-04] MEDS: ESCITALOPRAM OXALATE 10 MG TABLET PO SCH (08:04)
[2018-06-04] MEDS: METOPROLOL TARTRATE 50 MG TABLET PO SCH ×2 (08:04→21:53)
[2018-06-04] MEDS: DIVALPROEX 250 MG TABLET.DR PO SCH ×2 (08:05→16:25)
[2018-06-04] MEDS: CLOTRIMAZOLE 1% CREAM 30 GM TUBE TOP SCH ×2 (08:13→16:25)
[2018-06-04] MEDS ORDERED: DILTIAZEM HCL CD 240 MG CAP.SR.24H PO SCH (09:00)
--- NOTE | 2018-06-04 15:00 | NUR ---
IN THE UNIT TO SEE PATIENT. ORDER FOR ROOM AIR TO KEEP SATS 89-92%.
[2018-06-04] MEDS: RIVAROXABAN 10 MG TABLET PO SCH (16:31)
--- NOTE | 2018-06-04 18:30 | NUR ---
DOCTOR CONTRERAS ROUNDING ON PATIENT NEW ORDERS PLACED IN COMPUTER.
--- NOTE | 2018-06-04 19:30 | NUR ---
Sleeping on initial rounds. In no apparent acute distress. Remains Atrial Fib with controlled rate. On room air trial with saturations high 80's-low 90's. Will continue to monitor pt as a OSMAR status.
[2018-06-04] MEDS ORDERED: CETIRIZINE HCL 10 MG TABLET ONE (21:52)
[2018-06-04] MEDS: SIMVASTATIN 10 MG TABLET PO SCH (21:53)
[2018-06-04] MEDS ORDERED: OLANZAPINE 5 MG TABLET ONE (22:00)
--- NOTE | 2018-06-04 22:00 | NUR ---
Woke up hungry. Alert and oriented. Enjoyed HS snacks while dangling feet at side of bed. Talkative about incident that prompted admission to hospital. Wants to go home. Noted IV site at left hand reddened but flushes well. Attempted to restarted a new IV at right hand. Pt already screaming "just at the thought of getting poked." Failed attempt to establish new IV access, refused further attempts. Continues to sleep after receiving Percocet and Ativan.
[2018-06-04] MEDS: OLANZAPINE 5 MG TABLET PO SCH (22:04)
--- NOTE | 2018-06-05 02:00 | NUR ---
Woke up and had more snacks. Another Percocet dose requested for generalized pain in addition to earlier dose. States 2 tabs more effective and helps with her sleep.
[2018-06-05] MEDS: OXYCODONE/APAP 5-325 MG TABLET PO PRN ×2 (02:03→20:35)
[2018-06-05 04:00] VITALS: BP 107/63
--- NOTE | 2018-06-05 06:30 | NUR ---
Pt has been sleeping most of the night. Would eat snacks upon waking up. Remains AFib and rate tends to go up with activity. Using O2 at 1L/min on and off. Gets SOB with exertion. Nursing comfort measures observed. All needs provided and met. Appreciative of care and teachings. Wants to go home. Please see OSMAR flowsheet for trends and clinical data.
--- NOTE | 2018-06-05 07:37 | NUR ---
DOCTOR LONNIE IN THE UNIT TO SEE PATIENT. PLAN FOR LABS IN AM. POSSIBLE DISCHARGE PLANNING.
[2018-06-05 07:46] VITALS: BP 116/76
[2018-06-05] MEDS: DOCUSATE SODIUM 100 MG CAPSULE PO SCH ×2 (08:20→18:29)
[2018-06-05] MEDS: DIVALPROEX 250 MG TABLET.DR PO SCH ×2 (08:20→18:29)
[2018-06-05] MEDS: ESCITALOPRAM OXALATE 10 MG TABLET PO SCH (08:20)
[2018-06-05] MEDS: METOPROLOL TARTRATE 50 MG TABLET PO SCH ×2 (08:21→20:32)
[2018-06-05] MEDS: CLOTRIMAZOLE 1% CREAM 30 GM TUBE TOP SCH ×2 (08:22→18:30)
[2018-06-05] MEDS ORDERED: DILTIAZEM HCL CD 180 MG CAP.SR.24H PO SCH ×2 (08:22→17:00)
--- NOTE | 2018-06-05 11:00 | NUR ---
DOCTOR KALE IN THE UNIT TO SEE PATIENT.
[2018-06-05 12:08] VITALS: BP 114/84
--- NOTE | 2018-06-05 13:50 | NUR ---
PATIENT GOT UP WITH PT. TOLERATED WELL. HEART RATE <110. DOCTOR LETICIA SPOKE TO PATIENT REGARDING DISCHARGE PLANNING TODAY
[2018-06-05 15:57] VITALS: BP 109/77
[2018-06-05] MEDS: RIVAROXABAN 10 MG TABLET PO SCH (18:29)
[2018-06-05] MEDS ORDERED: FUROSEMIDE 20 MG/2 ML VIAL IV ONE (19:45)
[2018-06-05 20:00] VITALS: BP 146/79
--- NOTE | 2018-06-05 20:00 | NUR ---
Pt asleep on initial rounds. In no apparent acute distress. Remains on Atrial Fib. and noted meds adjusted today by english tutor. On room air, sats as low as 88% with some periods of apnea. Planned sleep studies as outpatient per Dr. Chaudhry.
--- NOTE | 2018-06-05 20:30 | NUR ---
Awake, alert and asking for food. Enjoyed snacks and TV show. Pleasant and conversant. HS care provided.
[2018-06-05] MEDS: DILTIAZEM HCL CD 240 MG CAP.SR.24H PO SCH (20:31)
[2018-06-05] MEDS: OLANZAPINE 5 MG TABLET PO SCH (20:32)
[2018-06-05] MEDS: SIMVASTATIN 10 MG TABLET PO SCH (20:32)
--- NOTE | 2018-06-05 22:00 | NUR ---
States discomfort over previous IV site at left hand. Has been refusing site to be changed past few days. Warm packs applied with relief. Instructed to keep affected extremity elevated at all times.
[2018-06-05] MEDS: LORAZEPAM 1 MG TABLET PO PRN (22:06)
--- NOTE | 2018-06-05 23:00 | NUR ---
Ice pack applied to left hand old IV site and kept elevated at all times.
[2018-06-05 23:59] VITALS: BP 101/48
--- NOTE | 2018-06-06 02:30 | NUR ---
Restless in bed, trying to assume position of comfort. Had an earlier dose of Percocet for gen. pain and Ativan for maximum comfort and relaxation. Med effectiveness did not last long. Requested to be up on chair.
[2018-06-06] MEDS: MORPHINE SULFATE 2 MG/1 ML DISP.SYRIN IV PRN ×2 (03:10→10:12)
--- NOTE | 2018-06-06 03:10 | NUR ---
Up on chair for about 25 minutes. Assisted back to bed and made comfortable. Noted SOB with activity but refusing to have O2. Now tearful and c/o severe generalized pain especially head and back. Refuses Percocet, wants "shot." Morphine IV given and will monitor closely.
[2018-06-06 04:00] VITALS: BP 97/45
[2018-06-06 05:43] LABS: BASOPHILS # (AUTO) 0.1 K/uL (0.0-8.0); BASOPHILS % (AUTO) 0.7 % (0.0-2.0); EOSINOPHILS # (AUTO) 0.4 K/uL (0.0-0.7); EOSINOPHILS % (AUTO) 3.2 % (0.0-7.0); HEMOGLOBIN 13.1 g/dL (10.9-14.3); LYMPHOCYTES # (AUTO) 2.3 K/uL (20.0-40.0); LYMPHOCYTES % (AUTO) 19.8 % (20.5-51.5); MEAN CORPUSCULAR HEMOGLOBIN 29.5 uug (24.7-32.8); MEAN CORPUSCULAR HGB CONC 33 g/dL (32.3-35.6); MEAN CORPUSCULAR VOLUME 89.7 fL (75.5-95.3); MONOCYTES # (AUTO) 0.9 K/uL (2.0-10.0); MONOCYTES % (AUTO) 7.5 % (0.0-11.0); NEUTROPHILS % (AUTO) 68.8 % (38.5-71.5); PLATELET COUNT (AUTO) 266 K/uL (179-408); RED BLOOD CELL COUNT(AUTO) 4.46 MIL/uL (3.63-4.92); WHITE BLOOD COUNT (AUTO) 11.6 K/uL (3.8-11.8)
[2018-06-06 05:59] LABS: MAGNESIUM 1.9 mg/dL (1.8-2.4); PHOSPHOROUS 4.3 mg/dL (2.5-4.9)
--- NOTE | 2018-06-06 06:30 | NUR ---
Has been asleep but readily arousable after Morphine. Through the night, pt asked for food with every waking up. Offered to be seen by supervisor mold cleaning and storage about diet regimen but refused.
[2018-06-06 06:42] LABS: POTASSIUM 3.5 mmol/L (3.5-5.1)
--- NOTE | 2018-06-06 07:30 | NUR ---
report received from Ruddy CHAVEZ, 58 yr old female as a OSMAR patient. was admitted on 05/29/18 for intractable pain secendary to a mechanical fall from a wheelchair. per report, patient still on atrial fib controlled rate. on room air, foey catheter intact. Addendum: 06/06/18 at 0921 by AYUSH MENDEZ RN Amended: Links added.
[2018-06-06 08:00] VITALS: BP 113/58
--- NOTE | 2018-06-06 08:00 | NUR ---
per review of the gambling monitor, patient converted dennis to sinus rhythm at 0355. see monitor strips Addendum: 06/06/18 at 926 by AYUSH MENDEZ RN Amended: Links added. Addendum: 06/06/18 at 932 by AYUSH MENDEZ RN Amended: Links added.
[2018-06-06] MEDS: METOPROLOL TARTRATE 50 MG TABLET PO SCH (08:51)
[2018-06-06] MEDS: DIVALPROEX 250 MG TABLET.DR PO SCH (08:51)
[2018-06-06] MEDS: ESCITALOPRAM OXALATE 10 MG TABLET PO SCH (09:01)
[2018-06-06] MEDS: DOCUSATE SODIUM 100 MG CAPSULE PO SCH (09:01)
[2018-06-06] MEDS: DILTIAZEM HCL CD 240 MG CAP.SR.24H PO SCH (09:02)
[2018-06-06] MEDS: CLOTRIMAZOLE 1% CREAM 30 GM TUBE TOP SCH (09:03)
--- NOTE | 2018-06-06 09:33 | NUR ---
c/o pain and swelling of the left hand secondary to aprvious IV site. hot packs applied. Addendum: 06/06/18 at 0933 by AYUSH MENDEZ RN Amended: Links added.
--- NOTE | 2018-06-06 10:23 | NUR ---
medicated for generalized pain. Addendum: 06/06/18 at 1024 by AYUSH MENDEZ RN Amended: Links added.
[2018-06-06 10:49] LABS: *BILIRUBIN,URIN NEGATIVE (NEGATIVE); *BLOOD, URINE 3+ (NEGATIVE); *CLARITY,URINE SLIGHTLY CLOUDY (CLEAR); *COLOR,URINE YELLOW (YELLOW); *KETONES,URINE NEGATIVE (NEGATIVE); *PROTEIN,URINE 2+ (NEGATIVE); *UROBILINOGEN,URINE 0.2 E.U./dl (NORMAL); LEUKOCYTE ESTERASE ,URINE 2+ (NEGATIVE); NITRITE, URINE NEGATIVE (NEGATIVE); UGLUCOSE NEGATIVE (NEGATIVE)
[2018-06-06 11:13] LABS: BACTERIA,URINE FEW /HPF (NONE SEEN); RBC,URINE 80-100 /HPF (0-3)
[2018-06-06 11:15] LABS: SQUAMOUS EPITHELIAL CELL,UR FEW /HPF (NONE SEEN)
[2018-06-06 11:16] LABS: URINE AMORPHOUS PHOSPHATES FEW /HPF
[2018-06-06 12:00] VITALS: BP 115/76
[2018-06-06] MEDS ORDERED: NITROFURANTOIN/NITROFURAN MAC 100 MG CAPSULE PO SCH (12:00)
[2018-06-06] MEDS ORDERED: SIMV20TA2 PO (12:40)
[2018-06-06] MEDS ORDERED: RIVA10TA PO (12:40)
[2018-06-06] MEDS ORDERED: DILT240C64 PO (12:40)
[2018-06-06] MEDS ORDERED: NITR100C11 PO (12:40)
[2018-06-06] MEDS ORDERED: POTA10TA15 PO (13:14)
[2018-06-06] MEDS ORDERED: FURO-152 PO (13:14)
[2018-06-06] MEDS ORDERED: FLUT1BLS4 IH (13:14)
--- NOTE | 2018-06-06 13:30 | NUR ---
medicated for pain Addendum: 06/06/18 at 1331 by AYUSH MENDEZ RN Amended: Links added.
--- NOTE | 2018-06-06 15:06 | NUR ---
RE[facility] GIVEN Gay[facility] Frazier LV[facility] by the [facility] Conference Services Manager. Home going instructions given to local tanker truck driver.
== END 2018-06-06 15:08 | DRG 133 ==
LOC: ER 17:21 → MED 20:11 → TELE-TD 05-31 11:50 → CCU 06-01 18:22 → TELE-TD 06-02 12:57 → CCU 06-04 15:30
PROC: 5A09357 Assistance with Respiratory Ventilation, Less than 24 Consecutive Hours, Continuous Positive Airway Pressure (ICD-10-PCS; principal; 2018-05-31)
DX: J96.02 Acute respiratory failure with hypercapnia (principal); I50.33 Acute on chronic diastolic (congestive) heart failure; D68.59 Other primary thrombophilia; E87.2 Acidosis; E66.2 Morbid (severe) obesity with alveolar hypoventilation; I48.91 Unspecified atrial fibrillation; J44.1 Chronic obstructive pulmonary disease with (acute) exacerbation; J96.01 Acute respiratory failure with hypoxia; S20.219A Contusion of unspecified front wall of thorax, initial encounter; Z68.43 Body mass index [BMI] 50.0-59.9, adult; I11.0 Hypertensive heart disease with heart failure; S40.012A Contusion of left shoulder, initial encounter; S30.811A Abrasion of abdominal wall, initial encounter; S60.211A Contusion of right wrist, initial encounter; E03.9 Hypothyroidism, unspecified; W10.2XXA Fall (on)(from) incline, initial encounter; Y92.129 Unspecified place in nursing home as the place of occurrence of the external cause; F41.9 Anxiety disorder, unspecified; K21.9 Gastro-esophageal reflux disease without esophagitis; M79.7 Fibromyalgia; K58.9 Irritable bowel syndrome, unspecified; M19.90 Unspecified osteoarthritis, unspecified site; E78.5 Hyperlipidemia, unspecified; F31.9 Bipolar disorder, unspecified; N39.0 Urinary tract infection, site not specified; Z88.0 Allergy status to penicillin; Z88.8 Allergy status to other drugs, medicaments and biological substances; Z91.041 Radiographic dye allergy status; Z79.82 Long term (current) use of aspirin; Z79.899 Other long term (current) drug therapy; N28.1 Cyst of kidney, acquired; K80.20 Calculus of gallbladder without cholecystitis without obstruction; J98.11 Atelectasis; K76.0 Fatty (change of) liver, not elsewhere classified; E11.9 Type 2 diabetes mellitus without complications; D16.00 Benign neoplasm of scapula and long bones of unspecified upper limb; M25.719 Osteophyte, unspecified shoulder; Z99.3 Dependence on wheelchair; Z87.891 Personal history of nicotine dependence; Z74.09 Other reduced mobility; N20.0 Calculus of kidney; M50.30 Other cervical disc degeneration, unspecified cervical region
CPT/HCPCS: 36415; 36600; 70030-TC; 70450; 71045; 71250; 72125; 73030; 73110; 76705; 76770; 82105; 83615; 83735; 84100; 84443; 85025; 87077; 87086; 93005; 93307; 94660; 94664; 97110; 97116; 97530; A4663; J1650; J1940; J2270; J2405; J3490; J7050; J7060; Q0163; Q9967

== ENCOUNTER 2018-07-20 14:30 | Emergency (ER) | payer OTHER ==
[~2018-07-20] VITALS: Ht 157.5 cm; Wt 136.1 kg
[~2018-07-20 14:30] MED LIST changes: -ASPI-605 PO; +CLOT45CR7 TOP; +DILT240C64 PO; +DIPH50CA38 PO; +ESCI10TA55 PO; +FLUT1BLS4 IH; +FURO-152 PO; -LORA-259 PO; +MELO-107 PO; +NITR100C11 PO; +OLAN10TA3 PO; +POTA10TA15 PO; -QUET200T PO; +RIVA10TA PO; +SIMV20TA2 PO; -SIMV20TA6 PO
--- NOTE | 2018-07-20 14:39 | NUR ---
PATIENT IS AWAKE AND ALERT.. WILL OBTAIN URINE SAMPLE...
--- NOTE | 2018-07-20 14:44 | NUR ---
Note sonalerin in EDM - 07/20/18 at 1558 by VINNIE PATIENT IS AWAKE, LAERT, ORIENTED X4 IN NO DISTRESS. STATE SHE FEELS SOB. PLACED ON MONITOR. SP02 >94% ON RA.
--- NOTE | 2018-07-20 15:00 | NUR ---
Note amanda in EDM - 07/20/18 at 1559 by VINNIE PATIENT STATES SHE FEELS BETTER, LESS SHORT OF BREATH. SP02 97% ON RA. DC, RX AND FOLLOW UP INSTUCTIONS GIVEN AND EXPLAINED TO PATIENT WHO STATES SHE UNDERSTANDS ALL INSTRUCTIONS. PATIENT WARNED ABOUT DRIVING WHILE ON ATIVAN, FAMILY STATES THEY WILL DRIVE.
[2018-07-20 15:04] LABS: *BILIRUBIN,URIN NEGATIVE (NEGATIVE); *BLOOD, URINE NEGATIVE (NEGATIVE); *COLOR,URINE YELLOW (YELLOW); *KETONES,URINE NEGATIVE (NEGATIVE); *PROTEIN,URINE NEGATIVE (NEGATIVE); *UROBILINOGEN,URINE 0.2 E.U./dl (NORMAL); LEUKOCYTE ESTERASE ,URINE NEGATIVE (NEGATIVE); NITRITE, URINE NEGATIVE (NEGATIVE); PH,URINE 5.5 (5.0-8.0); UGLUCOSE NEGATIVE (NEGATIVE)
[2018-07-20 15:05] LABS: *CLARITY,URINE HAZY (CLEAR)
[2018-07-20 15:15] LABS: BACTERIA,URINE FEW /HPF (NONE SEEN); RBC,URINE 0-3 /HPF (0-3); SQUAMOUS EPITHELIAL CELL,UR MANY /HPF (NONE SEEN); WBC,URINE 0-3 /HPF (0-3)
[2018-07-20] MEDS ORDERED: NITROFURANTOIN/NITROFURAN MAC 100 MG CAPSULE PO ONE (15:30)
--- NOTE | 2018-07-20 15:30 | NUR ---
AWAITING LAB RESULTS.
[2018-07-20] MEDS ORDERED: NITROFURANTOIN/NITROFURAN MAC 100 MG CAPSULE ONE (15:47)
--- NOTE | 2018-07-20 18:23 | NUR ---
AWAITING FOR AMBULANCE ARRIVAL TO TRANSPORT PT BACK TO [facility]. AMBULANCE WAS CALLED ABOUT 90 MINUTES AGO.
--- NOTE | 2018-07-20 18:55 | NUR ---
ON THE PHONE WITH AMBULANCE COMPANY, [facility] TO CHECK WHERE THEY ARE BECAUSE THEY SHOULDVE BEEN HERE BY NOW.... ACCORDING TO THE BOAT PAINTER OF [facility], THE DRIVERS DID NOT HAVE A BARIATRIC GURNEY SO THEY HAD TO GO AND RETRIEVE IT EVEN THOUGH THEY WERE TOLD THAT PT WAS GREATER THAN 250 POUNDS WHEN INITIAL CALL WAS MADE.
--- NOTE | 2018-07-20 19:09 | NUR ---
HANDOFF REPORT GIVEN TO OLIVER CHAVEZ
--- NOTE | 2018-07-20 19:26 | NUR ---
PATIENT TRANSFERRED TO [facility]. TRANSPORTER'S NAME IS PEYTON.
[2018-07-20 19:28] VITALS: BP 138/81
== END 2018-07-20 19:28 | disposition home or self-care (01) ==
LOC: ER 14:30
DX: R35.0 Frequency of micturition (principal); R19.7 Diarrhea, unspecified; I10 Essential (primary) hypertension; E78.5 Hyperlipidemia, unspecified; J45.909 Unspecified asthma, uncomplicated; E03.9 Hypothyroidism, unspecified; G89.29 Other chronic pain; M54.9 Dorsalgia, unspecified; Z88.0 Allergy status to penicillin; Z88.5 Allergy status to narcotic agent; Z88.8 Allergy status to other drugs, medicaments and biological substances; Z91.041 Radiographic dye allergy status
CPT/HCPCS: 81001; 87086; 99284; A4663

== ENCOUNTER 2018-11-23 20:46 | Emergency (ER) | payer OTHER ==
[~2018-11-23] VITALS: Ht 157.5 cm; Wt 127.0 kg
[~2018-11-23 20:46] MED LIST changes: +DILT-11 PO; -DILT240C64 PO
--- NOTE | 2018-11-23 20:56 | NUR ---
Pt bib private ambulance ([facility] [address]) from [facility] with c/o lt earache & lt side facial pain x 1 day. Denies injury. Pt also states she has nasal congestion & chronic pain. AAOX4, ambulatory. Speech clear. Able to move all extremities. No acute distress noted.
--- NOTE | 2018-11-23 21:04 | NUR ---
Dr. Migel JOVEL MD at bedside to evaluate pt.
[2018-11-23] MEDS ORDERED: HYDR-4384 PO (21:08)
[2018-11-23] MEDS ORDERED: OLAN10TA3 PO (21:08)
[2018-11-23] MEDS ORDERED: DIVA250T PO (21:08)
[2018-11-23] MEDS ORDERED: DILT-11 PO (21:08)
[2018-11-23] MEDS ORDERED: CLOT15CR63 TP (21:08)
[2018-11-23] MEDS ORDERED: ESCI10TA PO (21:08)
[2018-11-23] MEDS ORDERED: SIMV10TA6 PO (21:08)
[2018-11-23] MEDS ORDERED: LEVO200T9 PO (21:08)
[2018-11-23] MEDS ORDERED: ASPI81TA31 PO (21:08)
[2018-11-23] MEDS ORDERED: HYDR-3326 PO (21:08)
[2018-11-23] MEDS ORDERED: ALBU18HF2 IH (21:08)
[2018-11-23] MEDS ORDERED: RIVA20TA PO (21:08)
[2018-11-23] MEDS ORDERED: FLUT1BLS4 IH (21:08)
[2018-11-23] MEDS ORDERED: CEFTRIAXONE 1 G in IV DEXTROSE 5% 50 ML IV ONE (21:15)
[2018-11-23] MEDS ORDERED: NEOMY/POLYMYX B/HC OTIC SOL 10 ML BOTTLE OT ONE (21:15)
[2018-11-23] MEDS ORDERED: NEOMY/POLYMYX B/HC OTIC SOL 10 ML BOTTLE ONE (21:18)
[2018-11-23] MEDS ORDERED: CEFTRIAXONE 1 G VIAL ONE (21:18)
[2018-11-23] MEDS ORDERED: HYDROCODONE/APAP 5-325MG TABLET ONE (21:36)
[2018-11-23] MEDS ORDERED: HYDROCODONE/APAP 5-325MG TABLET PO ONE (21:45)
--- NOTE | 2018-11-23 21:46 | NUR ---
[facility] for transport back to [facility]. ETA 0029. Trip#[id number]
--- NOTE | 2018-11-23 21:56 | NUR ---
Provided pt food & drink.
--- NOTE | 2018-11-23 23:14 | NUR ---
[facility] called & was told they will be delayed. New ETA 0010 to 0015.
--- NOTE | 2018-11-24 00:05 | NUR ---
IV removed. Catheter intact and site benign. Pressure and 4x4 gauze applied to site. No bleeding noted.
--- NOTE | 2018-11-24 00:06 | NUR ---
[facility] here to transport pt back to [facility]. No acute distress noted. VSS.
[2018-11-24 00:10] VITALS: BP 124/97
== END 2018-11-24 00:11 | disposition home or self-care (01) ==
LOC: ER 20:46
DX: H60.92 Unspecified otitis externa, left ear (principal); K11.20 Sialoadenitis, unspecified; I10 Essential (primary) hypertension; E78.5 Hyperlipidemia, unspecified; J44.9 Chronic obstructive pulmonary disease, unspecified; K21.9 Gastro-esophageal reflux disease without esophagitis; E03.9 Hypothyroidism, unspecified; G89.29 Other chronic pain; M54.9 Dorsalgia, unspecified; Z88.0 Allergy status to penicillin; Z88.8 Allergy status to other drugs, medicaments and biological substances
CPT/HCPCS: 96365; 99283; J0696; J7060; A4663; J3590

== ENCOUNTER 2018-12-09 16:06 | Emergency (ER) | payer OTHER ==
[~2018-12-09] VITALS: Ht 157.5 cm; Wt 127.0 kg
[~2018-12-09 16:06] MED LIST changes: +ASPI81TA31 PO; +CLOT15CR63 TP; -CLOT45CR7 TOP; -DIPH50CA38 PO; +DIVA250T PO; -DIVA500T2 PO; +ESCI10TA PO; -ESCI10TA55 PO; -FURO-152 PO; +HYDR-3326 PO; +HYDR-4384 PO; -LEVO25TA9 PO; -MELO-107 PO; -NITR100C11 PO; -POTA10TA15 PO; -RIVA10TA PO; +RIVA20TA PO; +SIMV10TA6 PO; -SIMV20TA2 PO
[2018-12-09] MEDS ORDERED: ONDANSETRON 4 MG/2 ML VIAL IV ONE (16:45)
[2018-12-09] MEDS ORDERED: MORPHINE SULFATE 2 MG/1 ML DISP.SYRIN IV ONE (16:45)
[2018-12-09] MEDS ORDERED: IV NORMAL SALINE 1000 ML BAG IV ONE (16:45)
--- NOTE | 2018-12-09 17:00 | NUR ---
RECEIVED PT FROM NURSING FACILITY, C/O ABDOMINLA PAIN, UPON ARRIVAL; CONNECETD TO ECG MONITOR, V/S TAKEN , 12 LEAD ECG DONE. IV LINE G20 INSERTED , NS 500 ML IV GIVEN.PAIN MEDICATION GIVEN.
[2018-12-09 17:10] LABS: BASOPHILS # (AUTO) 0.1 K/uL (0.0-8.0); BASOPHILS % (AUTO) 1.3 % (0.0-2.0); EOSINOPHILS # (AUTO) 0.1 K/uL (0.0-0.7); EOSINOPHILS % (AUTO) 1.9 % (0.0-7.0); HEMATOCRIT 41.1 % (31.2-41.9); HEMOGLOBIN 13.9 g/dL (10.9-14.3); LYMPHOCYTES # (AUTO) 1.8 K/uL (20.0-40.0); LYMPHOCYTES % (AUTO) 30.9 % (20.5-51.5); MEAN CORPUSCULAR HEMOGLOBIN 29.5 uug (24.7-32.8); MEAN CORPUSCULAR HGB CONC 34 g/dL (32.3-35.6); MEAN CORPUSCULAR VOLUME 87.3 fL (75.5-95.3); MONOCYTES # (AUTO) 0.7 K/uL (2.0-10.0); MONOCYTES % (AUTO) 11.6 % (0.0-11.0); NEUTROPHILS # (AUTO) 3.2 K/uL (1.8-8.9); NEUTROPHILS % (AUTO) 54.3 % (38.5-71.5); PLATELET COUNT (AUTO) 219 K/uL (179-408); RED BLOOD CELL COUNT(AUTO) 4.71 MIL/uL (3.63-4.92); WHITE BLOOD COUNT (AUTO) 5.9 K/uL (3.8-11.8)
[2018-12-09 17:18] LABS: CREATININE 0.7 mg/dL (0.6-1.3); POTASSIUM 3.7 mmol/L (3.5-5.1)
[2018-12-09 17:24] LABS: BILIRUBIN,DIRECT 0.1 mg/dL (0.0-0.2); BILIRUBIN,TOTAL 0.4 mg/dL (0.2-1.0); TOTAL PROTEIN, SERUM 6.8 g/dL (6.4-8.2)
[2018-12-09] MEDS ORDERED: NEOM10SO7 LEFT EAR (17:33)
[2018-12-09] MEDS ORDERED: ONDANSETRON 4 MG/2 ML VIAL ONE (17:39)
[2018-12-09] MEDS ORDERED: MORPHINE SULFATE 4 MG/1 ML DISP.SYRIN ONE ×2 (17:39→21:51)
--- NOTE | 2018-12-09 19:16 | NUR ---
SEEN BY ,PT FOR DISCHARGE BACK TO THE NURSING FACILITY, FULL REPORT GIVEN TO SCOTT PERES
--- NOTE | 2018-12-09 20:36 | NUR ---
Called [facility], trip#[id number], ETA 2200, spoke with Tamera.
[2018-12-09] MEDS ORDERED: MORPHINE SULFATE 4 MG/1 ML DISP.SYRIN IV ONE (21:45)
--- NOTE | 2018-12-09 22:00 | NUR ---
[facility] arrived to ER to transport patient back to [facility]. Provided report and documentation to EMT.
--- NOTE | 2018-12-09 22:14 | NUR ---
Patient discharged to home in stable conditon. Written and verbal after care instructions given. Patient verbalizes understanding of instructions. Pt out of ER via [facility], VSS, no acute signs of distress, all belongings taken, IV site discontinued.
[2018-12-09 22:15] VITALS: BP 150/98
== END 2018-12-09 22:16 | disposition home or self-care (01) ==
LOC: ER 16:06
DX: R10.11 Right upper quadrant pain (principal); R11.10 Vomiting, unspecified; R19.7 Diarrhea, unspecified; M25.512 Pain in left shoulder; I10 Essential (primary) hypertension; E78.5 Hyperlipidemia, unspecified; J44.9 Chronic obstructive pulmonary disease, unspecified; K21.9 Gastro-esophageal reflux disease without esophagitis; E03.9 Hypothyroidism, unspecified; F17.200 Nicotine dependence, unspecified, uncomplicated; F12.10 Cannabis abuse, uncomplicated; Z88.0 Allergy status to penicillin; Z88.8 Allergy status to other drugs, medicaments and biological substances; Z79.891 Long term (current) use of opiate analgesic; Z79.899 Other long term (current) drug therapy; Z79.82 Long term (current) use of aspirin
CPT/HCPCS: 36415; 74176; 80048; 80076; 83690; 85025; 93005; 96361; 96374; 96375; 96376; 99284; J2270 ×2; J2405; A4663

== ENCOUNTER 2018-12-26 21:01 | Emergency (ER) | payer MEDICAID, OTHER ==
[~2018-12-26] VITALS: Ht 157.5 cm; Wt 133.4 kg
[~2018-12-26 21:01] MED LIST changes: +NEOM10SO7 LEFT EAR; -OMEP20CA10 PO; +OMEP20CA11 PO
--- NOTE | 2018-12-26 21:09 | NUR ---
PT A/OX4, BIB PRIVATE AMBULANCE FROM [facility], C/O L EARACHE X 2 WEEKS THAT HAS WORSENED THIS AM. L EARACHE NON-PROVOKED, ACHING IN QUALITY, DOES NOT RADIATE, 03/23, CONSTANT. NO DRAINAGE NOTED. VSS. PT DENIES C/P, SOB, N/V/D, DIZZINESS, HEADACHE.
--- NOTE | 2018-12-26 21:21 | NUR ---
BECKA REYES AT BEDSIDE FOR MSE.
[2018-12-26] MEDS ORDERED: AMOXICILLIN-CLAVUL 875-125MG TABLET PO ONE (21:30)
[2018-12-26] MEDS ORDERED: HYDROCODONE/APAP 10-325 MG TABLET PO ONE (21:30)
[2018-12-26] MEDS ORDERED: AMOXICILLIN-CLAVUL 875-125MG TABLET ONE (21:32)
[2018-12-26] MEDS ORDERED: HYDROCODONE/APAP 10-325 MG TABLET ONE (21:32)
--- NOTE | 2018-12-26 21:34 | NUR ---
ALEZ TRIP #[id number] [facility] [id number]
--- NOTE | 2018-12-26 22:18 | NUR ---
Patient discharged to home in stable conditon. Written and verbal after care instructions given. Patient verbalizes understanding of instructions. ALL BELONGINGS W/ PT. PT SELF-AMBULATED TO [facility]. PT WILL BE D/C BACK TO [facility] VIA AMBULNZ UNIT 113, PRIVATE AMBULANCE.
[2018-12-26 22:19] VITALS: BP 135/71
== END 2018-12-26 22:20 | disposition home or self-care (01) ==
LOC: ER 21:01
DX: H66.92 Otitis media, unspecified, left ear (principal); I10 Essential (primary) hypertension; E78.5 Hyperlipidemia, unspecified; J44.9 Chronic obstructive pulmonary disease, unspecified; K21.9 Gastro-esophageal reflux disease without esophagitis; E03.9 Hypothyroidism, unspecified; G89.29 Other chronic pain; M54.9 Dorsalgia, unspecified; F17.200 Nicotine dependence, unspecified, uncomplicated; F12.10 Cannabis abuse, uncomplicated; Z88.0 Allergy status to penicillin; Z88.8 Allergy status to other drugs, medicaments and biological substances; Z79.82 Long term (current) use of aspirin; Z79.899 Other long term (current) drug therapy
CPT/HCPCS: A4663

== ENCOUNTER 2019-01-11 16:39 | Emergency (ER) | payer MEDICAID, OTHER ==
[~2019-01-11] VITALS: Ht 157.5 cm; Wt 133.4 kg
[~2019-01-11 16:39] MED LIST changes: +OMEP20CA10 PO; -OMEP20CA11 PO
[2019-01-11] MEDS ORDERED: PROCHLORPERAZINE EDISYLATE 10 MG/2 ML VIAL ONE (17:29)
[2019-01-11] MEDS ORDERED: diphenhydrAMINE 50 MG/1 ML VIAL ONE (17:29)
[2019-01-11] MEDS ORDERED: PROCHLORPERAZINE EDISYLATE 10 MG/2 ML VIAL IM ONE (17:30)
[2019-01-11] MEDS ORDERED: diphenhydrAMINE 50 MG/1 ML VIAL IM ONE (17:30)
--- NOTE | 2019-01-11 17:32 | NUR ---
PT IS IN ROOM #1B. DR TODD EVALUATED THE PT.
[2019-01-11] MEDS ORDERED: DIVA500T2 PO (17:54)
[2019-01-11] MEDS ORDERED: IPRA0.2S48 IH (17:54)
[2019-01-11] MEDS ORDERED: LEVO500T2 PO (17:54)
[2019-01-11] MEDS ORDERED: DIGO125T PO (17:54)
[2019-01-11] MEDS ORDERED: IBUP-1957 PO (17:54)
[2019-01-11] MEDS ORDERED: DIPH50CA37 PO (17:54)
[2019-01-11] MEDS ORDERED: CITA40TA22 PO (17:54)
[2019-01-11] MEDS ORDERED: APIX5TAB PO (17:54)
[2019-01-11] MEDS ORDERED: CYCL5TAB PO (17:54)
[2019-01-11] MEDS ORDERED: DEXAMETHASONE SOD PHOSPHATE 4 MG INJ IM ONE (18:00)
[2019-01-11] MEDS ORDERED: DEXAMETHASONE SOD PHOSPHATE 10 MG INJ ONE (18:08)
--- NOTE | 2019-01-11 19:04 | NUR ---
[facility] WAS CALLED TO BRINGNPT TO HER HOME LOCATION. [place] IS 45 MINUTES. REPORT GIVEN TO YARN WASHERHYPERBARIC TECHNICIAN.
--- NOTE | 2019-01-11 20:07 | NUR ---
Patient discharged to home in stable conditon. Written and verbal after care instructions given. Patient verbalizes understanding of instructions. PATIENT IS PICKED UP BY [facility] #[id number]. PATIENT IS ALERT AND ORIENTED. NO ACUTE DISTRESS NOTED.
[2019-01-11 20:10] VITALS: BP 160/87
== END 2019-01-11 20:20 | disposition home or self-care (01) ==
LOC: ER 16:42
DX: S30.0XXA Contusion of lower back and pelvis, initial encounter (principal); S90.32XA Contusion of left foot, initial encounter; S79.912A Unspecified injury of left hip, initial encounter; S89.92XA Unspecified injury of left lower leg, initial encounter; S99.912A Unspecified injury of left ankle, initial encounter; I10 Essential (primary) hypertension; E78.5 Hyperlipidemia, unspecified; J44.9 Chronic obstructive pulmonary disease, unspecified; K21.9 Gastro-esophageal reflux disease without esophagitis; E03.9 Hypothyroidism, unspecified; G89.29 Other chronic pain; M54.9 Dorsalgia, unspecified; F12.10 Cannabis abuse, uncomplicated; F17.200 Nicotine dependence, unspecified, uncomplicated; Z88.0 Allergy status to penicillin; Z88.8 Allergy status to other drugs, medicaments and biological substances; Z79.2 Long term (current) use of antibiotics; Z79.82 Long term (current) use of aspirin; Z79.899 Other long term (current) drug therapy; W18.30XA Fall on same level, unspecified, initial encounter; Y93.89 Activity, other specified; Y92.89 Other specified places as the place of occurrence of the external cause; Y99.8 Other external cause status
CPT/HCPCS: 29505; 73502; 73564; 73610; 73630; 96372 ×3; 99283; J0780; J1100; J1200; A4663

== ENCOUNTER 2019-03-17 22:56 | Inpatient (IN) | payer MEDICAID, OTHER ==
[~2019-03-17] VITALS: Ht 157.5 cm; Wt 153.0 kg
[~2019-03-17 22:56] MED LIST changes: +APIX5TAB PO; +CITA40TA22 PO; -CLOT15CR63 TP; +CYCL5TAB PO; +DIGO125T PO; -DILT-11 PO; +DIPH50CA37 PO; -DIVA250T PO; +DIVA500T2 PO; -DOCU100C36 PO; -ESCI10TA PO; -FLUT1BLS4 IH; -HYDR-3326 PO; -HYDR-4384 PO; +IBUP-1957 PO; +IPRA0.2S48 IH; -LEVO200T9 PO; +LEVO500T2 PO; -METO50TA16 PO; -NEOM10SO7 LEFT EAR; -OLAN10TA3 PO; -OMEP20CA10 PO; -RIVA20TA PO; -SIMV10TA6 PO
--- NOTE | 2019-03-17 23:15 | NUR ---
PATIENT BIB AMBULANCE FROM [facility] FOR EVALUATION FOR C/O BLE PAIN X 2 DAYS. PATIENTAAOX4. IN NO RESPIRATORY DISTRESS. NO CARDIOVASCULAR CONCERN. BED ON LOCK POSITION. FALL PRECAUTION PER PROTOCOL.
[2019-03-17] MEDS ORDERED: METO10TA3 PO (23:30)
[2019-03-17] MEDS ORDERED: DIVA500T54 PO (23:30)
[2019-03-17] MEDS ORDERED: RIVA20TA PO (23:30)
[2019-03-17] MEDS ORDERED: ESOM20CA PO (23:30)
[2019-03-17] MEDS ORDERED: LEVO137T2 PO (23:30)
[2019-03-17] MEDS ORDERED: SIMV20TA6 PO (23:30)
[2019-03-17] MEDS ORDERED: DILTIAZEM 24HR ER 240 MG CAP (23:30)
[2019-03-17] MEDS ORDERED: ESCITALOPRAM 20 MG TABLET (23:30)
[2019-03-17] MEDS ORDERED: MULT1TAB73 PO (23:30)
[2019-03-17] MEDS ORDERED: CYCL10TA9 PO (23:30)
[2019-03-17] MEDS ORDERED: HYDR-4354 PO (23:30)
--- NOTE | 2019-03-17 23:58 | NUR ---
BECKA REYES at bedside for MSE.
[2019-03-18] MEDS ORDERED: MORPHINE SULFATE 2 MG/1 ML DISP.SYRIN IV ONE
[2019-03-18] MEDS ORDERED: ONDANSETRON 4 MG/2 ML VIAL IV ONE
[2019-03-18] MEDS ORDERED: VANCOMYCIN IV 1,000 MG in IV DEXTROSE 5% 250 ML IV ONE ×2
--- NOTE | 2019-03-18 00:25 | NUR ---
X-ray at bedside.
[2019-03-18 00:26] LABS: BASOPHILS # (AUTO) 0.1 K/uL (0.0-8.0); BASOPHILS % (AUTO) 1.1 % (0.0-2.0); EOSINOPHILS # (AUTO) 0.1 K/uL (0.0-0.7); EOSINOPHILS % (AUTO) 2.4 % (0.0-7.0); HEMATOCRIT 34.4 % (31.2-41.9); HEMOGLOBIN 11.3 g/dL (10.9-14.3); LYMPHOCYTES # (AUTO) 1.8 K/uL (20.0-40.0); LYMPHOCYTES % (AUTO) 34.6 % (20.5-51.5); MEAN CORPUSCULAR HEMOGLOBIN 30.2 uug (24.7-32.8); MEAN CORPUSCULAR HGB CONC 33 g/dL (32.3-35.6); MEAN CORPUSCULAR VOLUME 91.8 fL (75.5-95.3); MONOCYTES # (AUTO) 0.8 K/uL (2.0-10.0); MONOCYTES % (AUTO) 15.4 % (0.0-11.0); NEUTROPHILS # (AUTO) 2.4 K/uL (1.8-8.9); NEUTROPHILS % (AUTO) 46.5 % (38.5-71.5); PLATELET COUNT (AUTO) 207 K/uL (179-408); RED BLOOD CELL COUNT(AUTO) 3.75 MIL/uL (3.63-4.92); WHITE BLOOD COUNT (AUTO) 5.3 K/uL (3.8-11.8)
[2019-03-18] MEDS ORDERED: ONDANSETRON 4 MG/2 ML VIAL ONE (00:30)
[2019-03-18] MEDS ORDERED: MORPHINE SULFATE 4 MG/1 ML DISP.SYRIN ONE (00:30)
[2019-03-18] MEDS ORDERED: VANCOMYCIN IV 200 ML ONE (00:30)
[2019-03-18 00:34] LABS: CREATININE 0.8 mg/dL (0.6-1.3); POTASSIUM 3.8 mmol/L (3.5-5.1)
--- NOTE | 2019-03-18 00:51 | NUR ---
US tech at bedside for doppler BLE.
[2019-03-18 00:52] LABS: BILIRUBIN,DIRECT 0.1 mg/dL (0.0-0.2); BILIRUBIN,TOTAL 0.1 mg/dL (0.2-1.0); TOTAL PROTEIN, SERUM 6.1 g/dL (6.4-8.2)
[2019-03-18 00:58] LABS: EOSINOPHILS % (MANUAL) 1 % (0-8); LYMPHOCYTES % (MANUAL) 32 % (20-40); MONOCYTES % (MANUAL) 23 % (2-10); NEUTROPHILS % (MANUAL) 44 % (42-75)
[2019-03-18] MEDS ORDERED: HYDROMORPHONE 1 MG/1 ML DISP.SYRIN ONE (01:24)
--- NOTE | 2019-03-18 01:35 | NUR ---
Patient O2 saturation down to 73% on RA. Placed patient on O2 at 6LPM via NC. O2 saturation now at 92%.
[2019-03-18] MEDS ORDERED: HYDROMORPHONE 1 MG/1 ML DISP.SYRIN IV ONE (01:45)
--- NOTE | 2019-03-18 02:55 | NUR ---
Patient asleep in bed. Easily arouse to verbal stimuli. In no respiratory distress. VSS
--- NOTE | 2019-03-18 03:43 | NUR ---
CALLED [facility]. PATIENT FOR ADMISSION. WAITING FOR Mikayla KIM TO CALL BACK.
--- NOTE | 2019-03-18 04:15 | NUR ---
Called [facility] to repage Dr. Amaya.
--- NOTE | 2019-03-18 04:19 | NUR ---
Dr. Seals speaking with Dr. Amaya. Patient accepted for admission to [facility], diagnosis: bilat cellulitis, pedal edema.
--- NOTE | 2019-03-18 04:26 | NUR ---
Report given to Damaris CHAVEZ Medsurg.
--- NOTE | 2019-03-18 04:50 | NUR ---
Admitted 58 y/o F to med surg floor for bilateral lower extremity cellulitis and pedal edema. Pt AA&Ox4. On 6L O2 via n/c. Pt was able to transfer herself from [place] to bed with stand by assist. Noted with redness to BLE and +3 pitting edema to lower legs, ankles, and feet. Skin intact. Oriented patient to unit, staff, room, board, and call light. All safety precautions in place. No complaints at this time. Will cont to monitor.
[2019-03-18 05:00] VITALS: BP 143/72
--- NOTE | 2019-03-18 05:00 | NUR ---
PATIENT TRANSFER TO [facility] FLOOR ROOM #321.
[2019-03-18 05:04] LABS: *BILIRUBIN,URIN NEGATIVE (NEGATIVE); *BLOOD, URINE NEGATIVE (NEGATIVE); *CLARITY,URINE CLEAR (CLEAR); *COLOR,URINE LIGHT YELLOW (YELLOW); *KETONES,URINE NEGATIVE (NEGATIVE); *UROBILINOGEN,URINE 0.2 E.U./dl (NORMAL); LEUKOCYTE ESTERASE ,URINE NEGATIVE (NEGATIVE); NITRITE, URINE NEGATIVE (NEGATIVE); PH,URINE 7.5 (5.0-8.0); UGLUCOSE NEGATIVE (NEGATIVE)
[2019-03-18] MEDS ORDERED: ALBUTEROL SULFATE 8 GM HFA.AER.AD IH PRN (07:45)
[2019-03-18] MEDS ORDERED: IBUPROFEN 800 MG TABLET PO PRN (07:45)
[2019-03-18] MEDS ORDERED: ALBUTEROL SULFATE 2.5 MG/3 ML NEBU NEB PRN (08:45)
[2019-03-18] MEDS ORDERED: ASPIRIN 81 MG TAB.CHEW PO SCH (09:00)
[2019-03-18] MEDS: FUROSEMIDE 20 MG TABLET PO SCH (09:00)
[2019-03-18] MEDS ORDERED: DILTIAZEM HCL SR 60 MG CAP.SR.12H PO SCH (09:00)
[2019-03-18] MEDS ORDERED: ESCITALOPRAM OXALATE 10 MG TABLET PO SCH (09:00)
[2019-03-18] MEDS: HYDROCODONE/APAP 10-325 MG TABLET PO PRN ×3 (09:01→22:45)
[2019-03-18] MEDS: PANTOPRAZOLE SODIUM 40 MG TABLET.DR PO SCH (09:02)
[2019-03-18] MEDS: DILTIAZEM HCL CD 240 MG CAP.SR.24H PO SCH (09:02)
[2019-03-18] MEDS: DIVALPROEX 500 MG TABLET.DR PO SCH ×2 (10:00→20:11)
[2019-03-18] MEDS: LEVOTHYROXINE SODIUM 137 MCG TABLET PO SCH (10:00)
[2019-03-18] MEDS ORDERED: DIVA-78 PO (11:13)
[2019-03-18] MEDS: VANCOMYCIN IV 2,000 MG in IV DEXTROSE 5% 500 ML IV SCH (11:38)
[2019-03-18 11:40] VITALS: BP 128/68
--- NOTE | 2019-03-18 12:17 | NUR ---
Clinical Pharmacy Note: Vancomycin Dosing per Pharmacy Subjective: To start vancomycin dosing this 58 yo female for suspected infection (no MD notes yet) Objective: BUN 19/Scr 0.8 WBC: 5.3 Temperature: 97.4 ht 157 cm wt 153 kg Assessment/Plan: Patient received vanco 1gm IVPB on 03/18 at 0030. Will start vanco 2gm IVPB q17h for predicted vanco trough level of 16.5 mcg/ml at steady state. 1st dos today at 1100. Will draw a vanco trough level around the 4th dose (not yet ordered). Will monitor renal function & adjust the dose if needed. Will monitor.
[2019-03-18 15:43] VITALS: BP 133/77
[2019-03-18] MEDS: RIVAROXABAN 10 MG TABLET PO SCH (17:02)
--- NOTE | 2019-03-18 19:00 | NUR ---
Patient rested well in between care. AAOx4. Receiving 6L O2 saturation at 96%. Complained of left shoulder pain of 8/10. PRN pain meds given accordingly. IV on right FA intact and patent. 3+ pitting edema on BLE extremities noted. Vanco administered per MD order. Comfort and safety maintained at all times. Continue plan of care.
[2019-03-18] MEDS ORDERED: OXYC-451 PO (19:45)
[2019-03-18] MEDS ORDERED: DILT240C2 PO (19:46)
[2019-03-18] MEDS ORDERED: ESCI10TA PO (19:47)
[2019-03-18 19:53] VITALS: BP 125/65
[2019-03-18] MEDS: ATORVASTATIN 10 MG TABLET PO SCH (20:11)
[2019-03-18] MEDS: CYCLOBENZAPRINE HCL 10 MG TABLET PO SCH (20:11)
[2019-03-18] MEDS ORDERED: DIVALPROEX 500 MG TABLET.DR PO SCH (21:00)
[2019-03-18] MEDS ORDERED: DIVALPROEX ER 500 MG TAB.SR.24H PO SCH ×2 (21:00)
--- NOTE | 2019-03-18 22:32 | NUR ---
RECEIVED PT AWAKE, ALERT AND ORIENTEDX4. PT SHOWS NO SIGNS OF ACUTE DISTRESS. IV INTACT. CALL LIGHT WITHIN Reach. SAFETY AND COMFORT PROVIDED. WILL CONTINUE TO MONITOR.
[2019-03-19] MEDS: diphenhydrAMINE 50 MG CAPSULE PO PRN ×2 (02:19→22:37)
[2019-03-19 03:21] VITALS: BP 142/80
[2019-03-19] MEDS: VANCOMYCIN IV 2,000 MG in IV DEXTROSE 5% 500 ML IV SCH ×2 (04:12→20:40)
[2019-03-19] MEDS: HYDROCODONE/APAP 10-325 MG TABLET PO PRN ×2 (05:58→18:26)
[2019-03-19] MEDS: LEVOTHYROXINE SODIUM 137 MCG TABLET PO SCH (06:04)
[2019-03-19] MEDS: PANTOPRAZOLE SODIUM 40 MG TABLET.DR PO SCH (06:04)
--- NOTE | 2019-03-19 06:04 | NUR ---
PT SLEPT INTERMITTENTLY. PT SHOWS NO SIGNS OF ACUTE DISTRESS. PT IV INTACT. SAFETY AND COMFORT PROVIDED. PRESCRIBED MEDICATION GIVEN AND PT TOLERATED IT WELL.PT ASKING IF SHE CAN HAVE ARMENDARIZ CATHETER. PT GIVEN NORCO AT 2245H ANDF 0558H FOR PAIN ON HER FOOT AND BACK. PT TOLERATED IT WELL. WILL ENDORSE TO DAYSHIFT NURSE. ALL NEEDS ARE MET. WILL ENDORSE ACCORDINGLY TO INCOMING NURSE FOR CONTINUITY OF CARE.
[2019-03-19] MEDS: DILTIAZEM HCL CD 240 MG CAP.SR.24H PO SCH (08:27)
[2019-03-19] MEDS: DIVALPROEX 500 MG TABLET.DR PO SCH ×2 (08:27→20:40)
[2019-03-19] MEDS: FUROSEMIDE 20 MG TABLET PO SCH (08:28)
[2019-03-19] MEDS: ESCITALOPRAM OXALATE 10 MG TABLET PO SCH (08:28)
[2019-03-19 12:00] VITALS: BP 101/61
--- NOTE | 2019-03-19 15:15 | NUR ---
Clinical Pharmacy Note: Vancomycin Dosing per Pharmacy Subjective: To continue vancomycin dosing this 58 yo female for suspected infection Objective: BUN 19/Scr 0.8 (03/18) WBC: 5.3 (6/) Temperature: 97.7 ht 157 cm wt 153 kg Assessment/Plan: Will continue vanco 2gm IVPB q17h for predicted vanco trough level of 16.5 mcg/ml at steady state. third dose was today at 0400. Trough ordered before 4th scheduled dose (due tonight at 2030). RN endorsed to hold dose if trough >20. Will check level in am tomorrow and adjust as needed. Will continue to follow
[2019-03-19 16:26] VITALS: BP 142/75
[2019-03-19] MEDS: RIVAROXABAN 10 MG TABLET PO SCH ×2 (16:35→17:58)
--- NOTE | 2019-03-19 18:49 | NUR ---
PATIENT SLEPT INTERMITTENTLY THROUGHOUT THE DAY. BED IN LOWEST POSITION, SIDE RAILS UP X2. PATIENT REPORTING 10/10 PAIN IN BOTH SHOULDER, PAIN MEDICATION GAVE ACCORDINGLY. 3+ PITTING EDEMA BILATERAL. SAFETY MEASURES PROVIDED.
--- NOTE | 2019-03-19 19:23 | NUR ---
RECEIVED PT AWAKE, ALERT AND ORIENTEDX4. PT SHOWS NO SIGNS OF ACUTE DISTRESS. CALL LIGHT WITHIN Reach. SAFETY AND COMFORT PROVIDED. WILL CONTINUE TO MONITOR.
[2019-03-19 19:45] VITALS: BP 136/71
[2019-03-19] MEDS: ATORVASTATIN 10 MG TABLET PO SCH (20:39)
[2019-03-19] MEDS: CYCLOBENZAPRINE HCL 10 MG TABLET PO SCH (20:39)
--- NOTE | 2019-03-19 21:00 | NUR ---
IV SITE IS PAINFUL, DOES NOT FLUSH, SLIGHTLY SWOLLEN.
[2019-03-20] MEDS: HYDROCODONE/APAP 10-325 MG TABLET PO PRN ×2 (01:23→12:07)
[2019-03-20 05:18] VITALS: BP 139/87
[2019-03-20] MEDS: PANTOPRAZOLE SODIUM 40 MG TABLET.DR PO SCH (06:16)
--- NOTE | 2019-03-20 06:57 | NUR ---
Jermaine SLEPT WELL, NO ISSUES NOTED. COMFORT AND SAFETY MEASURES ARE IN PLACE.
[2019-03-20] MEDS ORDERED: LIOTHYRONINE SODIUM 5 MCG TABLET PO SCH (07:00)
[2019-03-20] MEDS ORDERED: LEVOTHYROXINE SODIUM 150 MCG TABLET PO SCH (07:00)
[2019-03-20] MEDS ORDERED: LEVOTHYROXINE SODIUM 137 MCG TABLET PO SCH (07:00)
[2019-03-20] MEDS ORDERED: ATOR10TA PO (08:48)
[2019-03-20] MEDS ORDERED: CLIN300C11 PO (08:48)
[2019-03-20] MEDS ORDERED: LIOT5TAB7 PO (08:48)
[2019-03-20] MEDS ORDERED: LEVO150T PO (08:48)
--- NOTE | 2019-03-20 09:00 | NUR ---
INFORMATION SENT: FACESHEET, CONSULTATION, PROGRESS NOTES 03/19, 24 HRS REPORT, UR 03/19. INSURANCE NAME:[facility]/ [employer] [facility] FAX NUMBER: [phone] / [phone] FAX SENT
[2019-03-20] MEDS: DIVALPROEX 500 MG TABLET.DR PO SCH (09:13)
[2019-03-20] MEDS: FUROSEMIDE 20 MG TABLET PO SCH (09:13)
[2019-03-20] MEDS: ESCITALOPRAM OXALATE 10 MG TABLET PO SCH (09:13)
[2019-03-20 09:19] VITALS: BP 128/61
[2019-03-20] MEDS: DILTIAZEM HCL CD 240 MG CAP.SR.24H PO SCH (09:19)
--- NOTE | 2019-03-20 12:30 | NUR ---
Per Pharmacist Pooja Vanco Trough is scheduled 1:30 today. Vancomycin is scheduled to be given at 1400. Patient being picked up by Assisted Living provided transportation at 1400. Per josue Patton not to give prior to discharge. Patient leaving on clindamycin antibiotic PO. Will educate patient to begin taking.
--- NOTE | 2019-03-20 14:25 | NUR ---
Patient discharged to [facility]. Accompanied via jn Julien. Patient alert and oriented, stable at time of discharge. Discharge instructions reviewed with patient. Verbalized understanding. Antibiotic education reinforced. IV access and wristband removed. Medications and belongings returned.
== END 2019-03-20 14:40 | DRG 383 ==
LOC: ER 22:56 → MEDSURG3 03-18 04:20
PROVIDERS: ADMIT Internal Medicine; ATTEND Internal Medicine
DX: L03.116 Cellulitis of left lower limb (principal); E66.2 Morbid (severe) obesity with alveolar hypoventilation; I11.9 Hypertensive heart disease without heart failure; E03.9 Hypothyroidism, unspecified; L03.115 Cellulitis of right lower limb; Z79.890 Hormone replacement therapy; Z79.01 Long term (current) use of anticoagulants; Z68.44 Body mass index [BMI] 60.0-69.9, adult; M75.22 Bicipital tendinitis, left shoulder; I48.91 Unspecified atrial fibrillation; Z71.3 Dietary counseling and surveillance; J44.9 Chronic obstructive pulmonary disease, unspecified; K21.9 Gastro-esophageal reflux disease without esophagitis; K58.9 Irritable bowel syndrome, unspecified; G89.29 Other chronic pain; F31.9 Bipolar disorder, unspecified; E78.5 Hyperlipidemia, unspecified; Z99.3 Dependence on wheelchair; Z79.899 Other long term (current) drug therapy; M79.7 Fibromyalgia; F12.90 Cannabis use, unspecified, uncomplicated; E11.9 Type 2 diabetes mellitus without complications
CPT/HCPCS: 36415; 70030-TC; 71045; 73020; 84443; 84480; 85025; 85730; 93005; A4663; G0378; J1170; J2270; J2405; J3370; J7040; J7060; Q0163

== ENCOUNTER 2019-04-24 11:13 | Emergency (ER) | payer MEDICAID ==
[~2019-04-24] VITALS: Ht 157.5 cm; Wt 137.4 kg
[~2019-04-24 11:13] MED LIST changes: -APIX5TAB PO; +ATOR10TA PO; -CITA40TA22 PO; +CLIN300C11 PO; +CYCL10TA9 PO; -DIGO125T PO; +DILT240C2 PO; +DIVA-78 PO; +ESCI10TA PO; +ESOM20CA PO; -IPRA0.2S48 IH; +LEVO150T PO; -LEVO500T2 PO; +LIOT5TAB7 PO; +METO10TA3 PO; +MULT1TAB73 PO; +OXYC-451 PO; +RIVA20TA PO
--- NOTE | 2019-04-24 11:18 | NUR ---
PT IS A/OX4, BIB PRIVATE AMBULANCE FROM [facility], C/O DYSURIA AND URINARY FREQUENCY X 2 WEEKS. PT REPORTS SHE'S ALSO HAD BOUTS OF URINARY INCONTINENCE. PER EMT'S REPORT, PT HAS NOT BEEN "EATING AND DRINKING WELL FOR A COUPLE OF DAYS". VSS. PT DENIES C/P, SOB, DIZZINESS, HEADACHE.
[2019-04-24 11:47] LABS: *CLARITY,URINE CLOUDY (CLEAR); *KETONES,URINE NEGATIVE (NEGATIVE); *UROBILINOGEN,URINE 0.2 E.U./dl (NORMAL); LEUKOCYTE ESTERASE ,URINE NEGATIVE (NEGATIVE); NITRITE, URINE NEGATIVE (NEGATIVE); PH,URINE 6.5 (5.0-8.0); UGLUCOSE NEGATIVE (NEGATIVE)
[2019-04-24 11:49] LABS: *BLOOD, URINE TRACE (NEGATIVE)
[2019-04-24 11:50] LABS: *BILIRUBIN,URIN 1+ (NEGATIVE); *COLOR,URINE DARK YELLOW (YELLOW)
[2019-04-24 11:53] LABS: BASOPHILS % (AUTO) 0.8 % (0.0-2.0); CREATININE 0.9 mg/dL (0.6-1.3); EOSINOPHILS # (AUTO) 0.1 K/uL (0.0-0.7); EOSINOPHILS % (AUTO) 2.5 % (0.0-7.0); HEMATOCRIT 41.1 % (31.2-41.9); HEMOGLOBIN 13.6 g/dL (10.9-14.3); LYMPHOCYTES # (AUTO) 2.2 K/uL (20.0-40.0); LYMPHOCYTES % (AUTO) 41.2 % (20.5-51.5); MEAN CORPUSCULAR HGB CONC 33 g/dL (32.3-35.6); MONOCYTES # (AUTO) 0.7 K/uL (2.0-10.0); MONOCYTES % (AUTO) 12.3 % (0.0-11.0); NEUTROPHILS # (AUTO) 2.3 K/uL (1.8-8.9); NEUTROPHILS % (AUTO) 43.2 % (38.5-71.5); PLATELET COUNT (AUTO) 228 K/uL (179-408); POTASSIUM 3.6 mmol/L (3.5-5.1); RED BLOOD CELL COUNT(AUTO) 4.51 MIL/uL (3.63-4.92); WHITE BLOOD COUNT (AUTO) 5.4 K/uL (3.8-11.8)
[2019-04-24 12:04] LABS: BACTERIA,URINE MODERATE /HPF (NONE SEEN); CALCIUM OXALATE CRYSTALS,UR MODERATE /HPF (NONE SEEN); SQUAMOUS EPITHELIAL CELL,UR MODERATE /HPF (NONE SEEN); WBC,URINE 0-3 /HPF (0-3)
--- NOTE | 2019-04-24 12:10 | NUR ---
BECKA REYES AT BEDSIDE FOR PT UPDATE.
--- NOTE | 2019-04-24 12:14 | NUR ---
CALLED [facility], AND SPOKE W/ GUZMAN. TRIP #[id number] ETA 1400
[2019-04-24] MEDS ORDERED: LEVOFLOXACIN 500 MG TABLET PO ONE (12:15)
[2019-04-24] MEDS ORDERED: LEVOFLOXACIN 500 MG TABLET ONE (12:23)
--- NOTE | 2019-04-24 12:37 | NUR ---
MEAL TRAY PROVIDED FOR PT.
--- NOTE | 2019-04-24 13:34 | NUR ---
CALLED [facility], SPOKE W/ CRYSTAL TO CANCEL TRANSPORT.
--- NOTE | 2019-04-24 13:34 | NUR ---
Patient discharged to home in stable conditon. Written and verbal after care instructions given. Patient verbalizes understanding of instructions. ALL BELONGINGS W/ PT. PT ESCORTED OUT TO 'S PRIVATE VEHICLE IN W/C.
[2019-04-24 13:35] VITALS: BP 133/92
== END 2019-04-24 13:36 | disposition home or self-care (01) ==
LOC: ER 11:13
DX: N39.0 Urinary tract infection, site not specified (principal); R32 Unspecified urinary incontinence; E66.01 Morbid (severe) obesity due to excess calories; I10 Essential (primary) hypertension; E78.5 Hyperlipidemia, unspecified; J44.9 Chronic obstructive pulmonary disease, unspecified; K21.9 Gastro-esophageal reflux disease without esophagitis; F31.9 Bipolar disorder, unspecified; F17.200 Nicotine dependence, unspecified, uncomplicated; F12.10 Cannabis abuse, uncomplicated; Z88.0 Allergy status to penicillin; Z88.8 Allergy status to other drugs, medicaments and biological substances; Z79.82 Long term (current) use of aspirin; Z79.1 Long term (current) use of non-steroidal anti-inflammatories (NSAID); Z79.899 Other long term (current) drug therapy
CPT/HCPCS: 36415; 85025; 87077; 87086; A4663

== ENCOUNTER 2019-04-30 23:38 | Emergency (ER) | payer MEDICAID ==
[~2019-04-30] VITALS: Ht 157.5 cm; Wt 142.9 kg
[~2019-04-30 23:38] MED LIST changes: -CLIN300C11 PO
--- NOTE | 2019-04-30 23:50 | NUR ---
PATIENT BIB PRIVATE AMBULANCE FROM [facility] FOR C/O DYSURIA X1 WEEK AND BILATERAL LOWER EXETREMITY PAIN. PATIENT DENIES TRAUMA TO LOWER EXTREMITY. A/OX3. NO OTHER COMPLAINT NOTED
[2019-04-30] MEDS ORDERED: TRAMADOL HCL 50 MG TABLET (23:52)
[2019-04-30] MEDS ORDERED: METOPROLOL 50 MG (23:55)
[2019-04-30] MEDS ORDERED: LEVO500T90 PO (23:55)
[2019-05-01 00:17] LABS: *BILIRUBIN,URIN NEGATIVE (NEGATIVE); *BLOOD, URINE NEGATIVE (NEGATIVE); *COLOR,URINE YELLOW (YELLOW); *KETONES,URINE NEGATIVE (NEGATIVE); *UROBILINOGEN,URINE 0.2 E.U./dl (NORMAL); LEUKOCYTE ESTERASE ,URINE NEGATIVE (NEGATIVE); NITRITE, URINE NEGATIVE (NEGATIVE); PH,URINE 6.5 (5.0-8.0); UGLUCOSE NEGATIVE (NEGATIVE)
[2019-05-01 00:23] LABS: CREATININE 1.1 mg/dL (0.6-1.3); POTASSIUM 3.6 mmol/L (3.5-5.1)
[2019-05-01 00:26] LABS: *CLARITY,URINE HAZY (CLEAR)
[2019-05-01 00:29] LABS: BILIRUBIN,DIRECT 0.1 mg/dL (0.0-0.2); BILIRUBIN,TOTAL 0.3 mg/dL (0.2-1.0); TOTAL PROTEIN, SERUM 6.7 g/dL (6.4-8.2)
[2019-05-01 00:33] LABS: BASOPHILS % (AUTO) 0.3 % (0.0-2.0); EOSINOPHILS % (AUTO) 0.1 % (0.0-7.0); HEMATOCRIT 40.3 % (31.2-41.9); HEMOGLOBIN 13.1 g/dL (10.9-14.3); LYMPHOCYTES # (AUTO) 2.1 K/uL (20.0-40.0); LYMPHOCYTES % (AUTO) 26.4 % (20.5-51.5); MEAN CORPUSCULAR HEMOGLOBIN 29.7 uug (24.7-32.8); MEAN CORPUSCULAR HGB CONC 33 g/dL (32.3-35.6); MONOCYTES # (AUTO) 0.7 K/uL (2.0-10.0); MONOCYTES % (AUTO) 8.3 % (0.0-11.0); NEUTROPHILS # (AUTO) 5.2 K/uL (1.8-8.9); NEUTROPHILS % (AUTO) 64.9 % (38.5-71.5); PLATELET COUNT (AUTO) 249 K/uL (179-408); RED BLOOD CELL COUNT(AUTO) 4.43 MIL/uL (3.63-4.92)
[2019-05-01 00:33] LABS: BACTERIA,URINE NONE SEEN /HPF (NONE SEEN); RBC,URINE 0-3 /HPF (0-3); SQUAMOUS EPITHELIAL CELL,UR MANY /HPF (NONE SEEN)
[2019-05-01 00:35] LABS: URINE AMORPHOUS URATE MANY /HPF
[2019-05-01] MEDS ORDERED: OXYCODONE/APAP 5-325 MG TABLET PO ONE (01:00)
[2019-05-01 01:03] LABS: MAGNESIUM 2.1 mg/dL (1.8-2.4)
[2019-05-01] MEDS ORDERED: OXYCODONE/APAP 5-325 MG TABLET ONE (01:17)
[2019-05-01 01:23] LABS: THYROID STIMULATING HORMONE 66.016 mIU/mL (0.358-3.740)
--- NOTE | 2019-05-01 02:38 | NUR ---
CALLED [facility] [phone]. NO AVAILABLE AMBULANCE UNTIL 0600 TODAY
--- NOTE | 2019-05-01 02:41 | NUR ---
CALLED ANTONIA FOR TRANSFER BACK TO [facility]. ETA IS 30MINS. TRIP #[id number]
--- NOTE | 2019-05-01 03:17 | NUR ---
GAVE SBAR REPORT TO PETR STAFF MEMBER FROM [facility]
--- NOTE | 2019-05-01 03:19 | NUR ---
GAVE SBAR REPORT TO AMBULANZ UNIT 126
[2019-05-01 03:35] VITALS: BP 138/62
== END 2019-05-01 03:36 | disposition home or self-care (01) ==
LOC: ER 23:40
DX: M79.604 Pain in right leg (principal); M79.605 Pain in left leg; M25.512 Pain in left shoulder; R30.0 Dysuria; R35.0 Frequency of micturition; I10 Essential (primary) hypertension; E78.5 Hyperlipidemia, unspecified; J44.9 Chronic obstructive pulmonary disease, unspecified; K21.9 Gastro-esophageal reflux disease without esophagitis; F31.9 Bipolar disorder, unspecified; F17.200 Nicotine dependence, unspecified, uncomplicated; F12.10 Cannabis abuse, uncomplicated; Z88.0 Allergy status to penicillin; Z88.8 Allergy status to other drugs, medicaments and biological substances; Z79.82 Long term (current) use of aspirin; Z79.1 Long term (current) use of non-steroidal anti-inflammatories (NSAID); Z79.2 Long term (current) use of antibiotics; Z79.899 Other long term (current) drug therapy
CPT/HCPCS: 36415; 73020; 83735; 84443; 85025; 87086; 93005; A4663

== ENCOUNTER 2019-05-06 13:58 | Emergency (ER) | payer MEDICAID ==
[~2019-05-06] VITALS: Ht 167.6 cm; Wt 108.9 kg
[~2019-05-06 13:58] MED LIST changes: +LEVO500T90 PO; +METOPROLOL 50 MG; +TRAMADOL HCL 50 MG TABLET
--- NOTE | 2019-05-06 14:18 | NUR ---
PT IS A/OX4, BIB PRIVATE AMBULANCE FROM [facility], C/O GENERALIZED BODY ACHES. BODY PAIN IS NON-PROVOKED, ACHING IN QUALITY, DOES NOT RADIATE, 3/10, CONSTANT. VSS. PT DOES NOT APPEAR TO BE IN ACUTE DISTRESS. PT SLEEPING COMFORTABLY IN BED.
--- NOTE | 2019-05-06 14:27 | NUR ---
BECKA REYES AT BEDSIDE FOR MSE.
[2019-05-06] MEDS ORDERED: TRAM50TA2 PO (14:46)
[2019-05-06] MEDS ORDERED: OXYC-451 PO (14:46)
[2019-05-06] MEDS ORDERED: ESOM20CA32 PO (14:46)
[2019-05-06] MEDS ORDERED: METO50TA16 PO (14:46)
[2019-05-06] MEDS ORDERED: CYCL10TA9 PO ×2 (14:46)
[2019-05-06] MEDS ORDERED: ATOR10TA PO (14:46)
[2019-05-06] MEDS ORDERED: ALBU18HF2 IH (14:46)
[2019-05-06] MEDS ORDERED: LIOT5TAB9 PO (14:46)
[2019-05-06] MEDS ORDERED: LEVO150T8 PO (14:46)
[2019-05-06] MEDS ORDERED: OXYB5TAB11 PO (14:46)
[2019-05-06] MEDS ORDERED: DIVA-78 PO ×2 (14:46)
[2019-05-06 15:01] LABS: BASOPHILS # (AUTO) 0.1 K/uL (0.0-8.0); BASOPHILS % (AUTO) 0.9 % (0.0-2.0); EOSINOPHILS # (AUTO) 0.2 K/uL (0.0-0.7); EOSINOPHILS % (AUTO) 2.1 % (0.0-7.0); HEMOGLOBIN 13.1 g/dL (10.9-14.3); LYMPHOCYTES % (AUTO) 39.2 % (20.5-51.5); MEAN CORPUSCULAR HEMOGLOBIN 29.8 uug (24.7-32.8); MEAN CORPUSCULAR HGB CONC 33 g/dL (32.3-35.6); MEAN CORPUSCULAR VOLUME 90.8 fL (75.5-95.3); MONOCYTES # (AUTO) 0.8 K/uL (2.0-10.0); MONOCYTES % (AUTO) 10.1 % (0.0-11.0); NEUTROPHILS # (AUTO) 3.6 K/uL (1.8-8.9); NEUTROPHILS % (AUTO) 47.7 % (38.5-71.5); PLATELET COUNT (AUTO) 210 K/uL (179-408); RED BLOOD CELL COUNT(AUTO) 4.41 MIL/uL (3.63-4.92); WHITE BLOOD COUNT (AUTO) 7.6 K/uL (3.8-11.8)
[2019-05-06 15:08] LABS: POTASSIUM 3.8 mmol/L (3.5-5.1)
[2019-05-06 15:14] LABS: BILIRUBIN,DIRECT 0.1 mg/dL (0.0-0.2); BILIRUBIN,TOTAL 0.2 mg/dL (0.2-1.0); TOTAL PROTEIN, SERUM 6.3 g/dL (6.4-8.2)
[2019-05-06] MEDS: IV NORMAL SALINE 1000 ML BAG IV ONE (15:14)
[2019-05-06] MEDS ORDERED: ONDANSETRON 4 MG/2 ML VIAL ONE (15:25)
[2019-05-06] MEDS ORDERED: HYDROMORPHONE 2 MG/1 ML DISP.SYRIN ONE (15:25)
[2019-05-06] MEDS: ONDANSETRON 4 MG/2 ML VIAL IV ONE (15:30)
[2019-05-06] MEDS: HYDROMORPHONE 1 MG/1 ML DISP.SYRIN IV ONE (15:32)
--- NOTE | 2019-05-06 15:41 | NUR ---
PT TAKEN TO RADIOLOGY FOR CT SCAN.
[2019-05-06 15:45] LABS: *BILIRUBIN,URIN NEGATIVE (NEGATIVE); *BLOOD, URINE 1+ (NEGATIVE); *COLOR,URINE YELLOW (YELLOW); *KETONES,URINE NEGATIVE (NEGATIVE); *UROBILINOGEN,URINE 0.2 E.U./dl (NORMAL); LEUKOCYTE ESTERASE ,URINE 1+ (NEGATIVE); NITRITE, URINE NEGATIVE (NEGATIVE); UGLUCOSE NEGATIVE (NEGATIVE)
[2019-05-06 15:55] LABS: *CLARITY,URINE HAZY (CLEAR)
[2019-05-06 15:57] LABS: BACTERIA,URINE FEW /HPF (NONE SEEN); COARSE GRANULAR CASTS,URINE 0-3 /LPF; MUCUS,URINE FEW /LPF (0-FEW); SQUAMOUS EPITHELIAL CELL,UR MODERATE /HPF (NONE SEEN); URINE AMORPHOUS URATE FEW /HPF; WBC,URINE 20-50 /HPF (0-3)
--- NOTE | 2019-05-06 16:35 | NUR ---
SPOKE W/ GUZMAN FROM [facility]. TRIP #[id number] ETA [id number]
[2019-05-06] MEDS: LEVOFLOXACIN 750 MG TABLET PO ONE (16:43)
[2019-05-06] MEDS: LEVOTHYROXINE SODIUM 175 MCG TABLET PO ONE (16:43)
[2019-05-06] MEDS ORDERED: LEVOFLOXACIN 750 MG TABLET ONE (16:44)
[2019-05-06] MEDS ORDERED: LEVOTHYROXINE SODIUM 175 MCG TABLET ONE (16:44)
--- NOTE | 2019-05-06 17:00 | NUR ---
PT STATES SHE WANTS TO TAKE [facility] HOME.
--- NOTE | 2019-05-06 17:06 | NUR ---
Patient discharged to home in stable conditon. Written and verbal after care instructions given. Patient verbalizes understanding of instructions. ALL BELONGINGS W/ PT. PT ASSISTED OUT TO [facility] ON W/C FOR COMFORT. 22G IV ACCESS IN L HAND TAKEN OUT PRIOR TO D/C - INNER CANNULA INTACT.
[2019-05-06 17:07] VITALS: BP 102/60
== END 2019-05-06 17:08 | disposition home or self-care (01) ==
LOC: ER 13:58
DX: N39.0 Urinary tract infection, site not specified (principal); E03.9 Hypothyroidism, unspecified; I10 Essential (primary) hypertension; J44.9 Chronic obstructive pulmonary disease, unspecified; K21.9 Gastro-esophageal reflux disease without esophagitis; F31.9 Bipolar disorder, unspecified; F17.200 Nicotine dependence, unspecified, uncomplicated; F12.10 Cannabis abuse, uncomplicated; Z88.0 Allergy status to penicillin; Z88.8 Allergy status to other drugs, medicaments and biological substances; Z79.2 Long term (current) use of antibiotics; Z79.899 Other long term (current) drug therapy; Z79.82 Long term (current) use of aspirin; Z79.1 Long term (current) use of non-steroidal anti-inflammatories (NSAID)
CPT/HCPCS: 36415; 74176; 80048; 80076; 81000; 81001; 83690; 84443; 85025; 87077; 87086; 87186; 93005; 96374; 96375; 99284; J1170; J2405; A4663; J7030

== ENCOUNTER 2019-05-17 12:37 | Emergency (ER) | payer MEDICAID ==
[~2019-05-17] VITALS: Ht 157.5 cm; Wt 154.7 kg
[~2019-05-17 12:37] MED LIST changes: -CYCL5TAB PO; -DIVA500T2 PO; -ESOM20CA PO; +ESOM20CA32 PO; -LEVO150T PO; +LEVO150T8 PO; -LIOT5TAB7 PO; +LIOT5TAB9 PO; +METO50TA16 PO; -METOPROLOL 50 MG; +OXYB5TAB11 PO; +TRAM50TA2 PO; -TRAMADOL HCL 50 MG TABLET
--- NOTE | 2019-05-17 12:43 | NUR ---
Dr Seals at the bedside for MSE.
[2019-05-17] MEDS ORDERED: LEVO25TA9 PO (13:08)
[2019-05-17 13:15] LABS: BASOPHILS % (AUTO) 0.7 % (0.0-2.0); EOSINOPHILS # (AUTO) 0.1 K/uL (0.0-0.7); EOSINOPHILS % (AUTO) 2.2 % (0.0-7.0); HEMATOCRIT 38.2 % (31.2-41.9); HEMOGLOBIN 12.5 g/dL (10.9-14.3); LYMPHOCYTES # (AUTO) 1.3 K/uL (20.0-40.0); LYMPHOCYTES % (AUTO) 27.2 % (20.5-51.5); MEAN CORPUSCULAR HEMOGLOBIN 30.2 uug (24.7-32.8); MEAN CORPUSCULAR HGB CONC 33 g/dL (32.3-35.6); MEAN CORPUSCULAR VOLUME 92.1 fL (75.5-95.3); MONOCYTES # (AUTO) 0.6 K/uL (2.0-10.0); MONOCYTES % (AUTO) 12.8 % (0.0-11.0); NEUTROPHILS # (AUTO) 2.7 K/uL (1.8-8.9); NEUTROPHILS % (AUTO) 57.1 % (38.5-71.5); PLATELET COUNT (AUTO) 190 K/uL (179-408); RED BLOOD CELL COUNT(AUTO) 4.15 MIL/uL (3.63-4.92); WHITE BLOOD COUNT (AUTO) 4.7 K/uL (3.8-11.8)
[2019-05-17 13:21] LABS: BILIRUBIN,DIRECT 0.1 mg/dL (0.0-0.2); BILIRUBIN,TOTAL 0.2 mg/dL (0.2-1.0); POTASSIUM 4.4 mmol/L (3.5-5.1); TOTAL PROTEIN, SERUM 6.1 g/dL (6.4-8.2)
[2019-05-17 14:23] LABS: *BILIRUBIN,URIN NEGATIVE (NEGATIVE); *BLOOD, URINE NEGATIVE (NEGATIVE); *CLARITY,URINE CLEAR (CLEAR); *COLOR,URINE YELLOW (YELLOW); *KETONES,URINE NEGATIVE (NEGATIVE); *UROBILINOGEN,URINE 0.2 E.U./dl (NORMAL); LEUKOCYTE ESTERASE ,URINE NEGATIVE (NEGATIVE); NITRITE, URINE NEGATIVE (NEGATIVE); UGLUCOSE NEGATIVE (NEGATIVE)
--- NOTE | 2019-05-17 15:52 | NUR ---
IV removed. Catheter intact and site benign. Pressure and 4x4 gauze applied to site. No bleeding noted.
--- NOTE | 2019-05-17 16:10 | NUR ---
[facility] CALLED [facility], ETA 1900, TRIP # [id number].
--- NOTE | 2019-05-17 17:30 | NUR ---
PT STATES SHE WANTS TO CALL [facility] FOR TX AND NOT WILLING TO WAIT, ER MADE AWARE AND WAS OKAY'D BY .
--- NOTE | 2019-05-17 17:36 | NUR ---
Patient discharged in stable conditon. Written and verbal after care instructions given. Patient verbalizes understanding of instructions. Pt assissted to the car via wheelchair.
[2019-05-17 17:37] VITALS: BP 137/65
== END 2019-05-17 17:38 | disposition home or self-care (01) ==
LOC: ER 12:38
DX: M19.012 Primary osteoarthritis, left shoulder (principal); R60.9 Edema, unspecified; I10 Essential (primary) hypertension; E78.5 Hyperlipidemia, unspecified; J44.9 Chronic obstructive pulmonary disease, unspecified; K21.9 Gastro-esophageal reflux disease without esophagitis; F31.9 Bipolar disorder, unspecified; F17.200 Nicotine dependence, unspecified, uncomplicated; F12.10 Cannabis abuse, uncomplicated; Z88.0 Allergy status to penicillin; Z88.8 Allergy status to other drugs, medicaments and biological substances; Z79.899 Other long term (current) drug therapy; Z79.1 Long term (current) use of non-steroidal anti-inflammatories (NSAID); Z79.82 Long term (current) use of aspirin
CPT/HCPCS: 36415; 70030-TC; 71045; 73030; 85025; 85730; 93005; A4663

== ENCOUNTER 2019-05-25 18:10 | Inpatient (IN) | payer MEDICAID ==
[~2019-05-25] VITALS: Ht 154.9 cm; Wt 145.1 kg
[~2019-05-25 18:10] MED LIST changes: +LEVO25TA9 PO; -LEVO500T90 PO
[2019-05-25] MEDS ORDERED: SIMV20TA6 PO (18:34)
[2019-05-25] MEDS ORDERED: LEVO137T2 PO (18:34)
--- NOTE | 2019-05-25 18:46 | NUR ---
BECKA REYES AT BEDSIDE FOR MSE.
[2019-05-25] MEDS ORDERED: IV NORMAL SALINE 500 ML BAG IV ONE (19:00)
[2019-05-25] MEDS ORDERED: FUROSEMIDE 20 MG/2 ML VIAL IV ONE (19:00)
[2019-05-25 19:12] LABS: BASOPHILS % (AUTO) 0.9 % (0.0-2.0); EOSINOPHILS # (AUTO) 0.1 K/uL (0.0-0.7); EOSINOPHILS % (AUTO) 2.4 % (0.0-7.0); HEMATOCRIT 35.1 % (31.2-41.9); HEMOGLOBIN 11.6 g/dL (10.9-14.3); LYMPHOCYTES # (AUTO) 1.6 K/uL (20.0-40.0); LYMPHOCYTES % (AUTO) 31.3 % (20.5-51.5); MEAN CORPUSCULAR HEMOGLOBIN 30.3 uug (24.7-32.8); MEAN CORPUSCULAR HGB CONC 33 g/dL (32.3-35.6); MEAN CORPUSCULAR VOLUME 91.3 fL (75.5-95.3); MONOCYTES # (AUTO) 0.8 K/uL (2.0-10.0); MONOCYTES % (AUTO) 15.9 % (0.0-11.0); NEUTROPHILS # (AUTO) 2.6 K/uL (1.8-8.9); NEUTROPHILS % (AUTO) 49.5 % (38.5-71.5); PLATELET COUNT (AUTO) 177 K/uL (179-408); RED BLOOD CELL COUNT(AUTO) 3.84 MIL/uL (3.63-4.92); WHITE BLOOD COUNT (AUTO) 5.3 K/uL (3.8-11.8)
[2019-05-25] MEDS ORDERED: FUROSEMIDE 40 MG/4 ML VIAL ONE (19:14)
--- NOTE | 2019-05-25 19:16 | NUR ---
SHIFT REPORT GIVEN TO GEO Arrieta LVN. NATALIIA.
[2019-05-25 19:29] LABS: CREATININE 0.7 mg/dL (0.6-1.3); POTASSIUM 4.6 mmol/L (3.5-5.1)
[2019-05-25 19:32] LABS: NEUTROPHILS % (MANUAL) 0 % (42-75)
[2019-05-25 19:36] LABS: BILIRUBIN,DIRECT 0.1 mg/dL (0.0-0.2); BILIRUBIN,TOTAL 0.2 mg/dL (0.2-1.0); TOTAL PROTEIN, SERUM 6.2 g/dL (6.4-8.2)
[2019-05-25] MEDS ORDERED: VANCOMYCIN IV 1,000 MG in IV DEXTROSE 5% 250 ML IV ONE (19:45)
[2019-05-25 19:50] LABS: *BILIRUBIN,URIN NEGATIVE (NEGATIVE); *BLOOD, URINE 1+ (NEGATIVE); *CLARITY,URINE CLEAR (CLEAR); *COLOR,URINE YELLOW (YELLOW); *KETONES,URINE NEGATIVE (NEGATIVE); *UROBILINOGEN,URINE 0.2 E.U./dl (NORMAL); LEUKOCYTE ESTERASE ,URINE NEGATIVE (NEGATIVE); NITRITE, URINE NEGATIVE (NEGATIVE); PH,URINE 6.5 (5.0-8.0); UGLUCOSE NEGATIVE (NEGATIVE)
[2019-05-25 20:00] LABS: WBC,URINE 0-3 /HPF (0-3)
[2019-05-25 20:01] LABS: BACTERIA,URINE FEW /HPF (NONE SEEN); SQUAMOUS EPITHELIAL CELL,UR FEW /HPF (NONE SEEN)
[2019-05-25] MEDS ORDERED: VANCOMYCIN HCL 500 MG VIAL ONE (20:07)
[2019-05-25] MEDS ORDERED: VANCOMYCIN IV 200 ML ONE (21:02)
--- NOTE | 2019-05-25 21:35 | NUR ---
TRANSFERED TO 3RD FLOOR MED SURG
--- NOTE | 2019-05-25 21:45 | NUR ---
ADMITTED PATIENT IN THE MED SURG FLOOR UNDER THE CARE OF DR DELMIS QUINTERO, BELONGING LIST DONE. PATIENT ALERT ORIENTED WITH BILATERAL CELLULITIS OF THE LOWER EXTREMITY, PATIENT PREFER TO KEEP ARMENDARIZ CATHETER. KEPT COMFORTABLE, CALL LIGHT WITHIN REACH.
[2019-05-25] MEDS ORDERED: SIMVASTATIN 20 MG TABLET PO SCH (22:00)
[2019-05-25 23:39] VITALS: BP 138/65
[2019-05-25] MEDS: DIVALPROEX 500 MG TABLET.DR PO SCH (23:43)
[2019-05-25] MEDS: OXYCODONE/APAP 5-325 MG TABLET PO PRN (23:44)
[2019-05-25] MEDS: OXYCODONE HCL 5 MG TABLET PO PRN (23:45)
[2019-05-26] MEDS: diphenhydrAMINE 50 MG CAPSULE PO PRN (02:28)
--- NOTE | 2019-05-26 05:25 | NUR ---
PATIENT ALERT ORIENTED, NO SOB NO CHEST PAIN, BILATERAL LEG CELLULITIS HAS REDNESS BUT DRY, NO DRAINAGE NOTED, CONT TO MONITOR FOR PAIN AND DISCOMFORT. CALL LIGHT WITHIN REACH.
[2019-05-26] MEDS ORDERED: LEVOTHYROXINE SODIUM 137 MCG TABLET ONE (05:56)
[2019-05-26] MEDS: METOCLOPRAMIDE HCL 10 MG TABLET PO SCH ×4 (06:05→20:35)
[2019-05-26 06:52] LABS: BASOPHILS % (AUTO) 0.8 % (0.0-2.0); EOSINOPHILS # (AUTO) 0.2 K/uL (0.0-0.7); EOSINOPHILS % (AUTO) 3.1 % (0.0-7.0); HEMATOCRIT 35.4 % (31.2-41.9); HEMOGLOBIN 11.9 g/dL (10.9-14.3); LYMPHOCYTES # (AUTO) 2.1 K/uL (20.0-40.0); MEAN CORPUSCULAR HEMOGLOBIN 30.5 uug (24.7-32.8); MEAN CORPUSCULAR HGB CONC 34 g/dL (32.3-35.6); MONOCYTES # (AUTO) 0.7 K/uL (2.0-10.0); MONOCYTES % (AUTO) 13.8 % (0.0-11.0); NEUTROPHILS # (AUTO) 2.2 K/uL (1.8-8.9); NEUTROPHILS % (AUTO) 42.3 % (38.5-71.5); PLATELET COUNT (AUTO) 175 K/uL (179-408); RED BLOOD CELL COUNT(AUTO) 3.89 MIL/uL (3.63-4.92); WHITE BLOOD COUNT (AUTO) 5.3 K/uL (3.8-11.8)
[2019-05-26 06:59] LABS: BILIRUBIN,TOTAL 0.3 mg/dL (0.2-1.0); CREATININE 0.9 mg/dL (0.6-1.3); MAGNESIUM 2.1 mg/dL (1.8-2.4); PHOSPHOROUS 4.7 mg/dL (2.5-4.9); POTASSIUM 4.1 mmol/L (3.5-5.1)
[2019-05-26] MEDS ORDERED: LEVOTHYROXINE SODIUM 137 MCG TABLET PO SCH (07:00)
--- NOTE | 2019-05-26 07:25 | NUR ---
RECEIVED PATIENT IN BED ASLEEP SEEMS COMFORTABLE WITH NO SOB AT THIS TIMKE HEP LOCK TO HER LEFT HAND IS INTACT WITH NO S/S OF INFILTERATION ENCOURAGED TO ELEVATE BOTH LOWER EXT ON THE PILLOW AND SHE EXPRESSED UNDERSTANDING.CALL LIGHTS AND HER PERSONAL BELONGINGS ARE PLACED WITHIN EASY REACH MADE COMFORTABLE AND WILL CONTINUE TO OBSERVE.
[2019-05-26] MEDS ORDERED: IBUPROFEN 800 MG TABLET PO PRN (07:30)
[2019-05-26] MEDS ORDERED: Medication Not On Formulary EA (Oxycodone Hcl/Acetaminophen (Oxycodone-Apap 10-325 Mg Ta PO PRN (07:30)
[2019-05-26] MEDS ORDERED: ALBUTEROL SULFATE 8 GM HFA.AER.AD IH PRN (08:00)
[2019-05-26] MEDS: PANTOPRAZOLE SODIUM 40 MG TABLET.DR PO SCH (08:39)
[2019-05-26] MEDS: CYCLOBENZAPRINE HCL 10 MG TABLET PO SCH ×3 (08:39→20:35)
[2019-05-26] MEDS: ASPIRIN 81 MG TAB.CHEW PO SCH (08:40)
[2019-05-26] MEDS: MULTIVITAMINS,THERAPEUTIC TABLET PO SCH (08:40)
[2019-05-26] MEDS: DIVALPROEX 500 MG TABLET.DR PO SCH ×2 (08:40→20:34)
[2019-05-26] MEDS: ESCITALOPRAM OXALATE 10 MG TABLET PO SCH (08:40)
[2019-05-26] MEDS: METOPROLOL TARTRATE 50 MG TABLET PO SCH ×2 (08:41→20:34)
[2019-05-26] MEDS: DILTIAZEM HCL CD 240 MG CAP.SR.24H PO SCH (08:42)
[2019-05-26] MEDS: VANCOMYCIN IV 2,000 MG in IV DEXTROSE 5% 500 ML IV SCH (09:04)
[2019-05-26] MEDS ORDERED: ALBUTEROL SULFATE 2.5 MG/3 ML NEBU NEB PRN (10:15)
--- NOTE | 2019-05-26 10:30 | NUR ---
DR SALAS HERE TO SEE AND EXAMINE PATIENT WITH NO NEW ORDERS AT THIS TIME.
--- NOTE | 2019-05-26 10:41 | NUR ---
Clinical Pharmacy Note: Vancomycin Dosing per Pharmacy Subjective: Vancomycin IV to start on this 59 female patient for cellulitis. Objective: BUN 19/Scr 0.9 WBC 5.3 Temperature 97.6 ht 155 cm wt 145 kg Assessment/Plan: Will start vancomycin 2000mg IVPB Q18hr for a predicted vancomycin steady state trough level of 17.8 mcg/ml. 1st dose today at 0900. Will draw a vancomycin trough level prior to the 4th dose of vancomycin (not ordered yet). Will monitor renal function and adjust vancomycin dose, if needed, should renal function change significantly. Will follow daily.
[2019-05-26 12:00] VITALS: BP 133/67
[2019-05-26] MEDS ORDERED: ATOR10TA PO (14:38)
[2019-05-26] MEDS: OXYCODONE/APAP 5-325 MG TABLET PO PRN (15:28)
[2019-05-26] MEDS: OXYCODONE HCL 5 MG TABLET PO PRN (15:28)
[2019-05-26 16:00] VITALS: BP 136/71
--- NOTE | 2019-05-26 16:00 | NUR ---
PATIENT STATED THAT SHE IS CONSTIPATED AND HAS NOT MOVED HER BOWELS IN A FEW DAYS CALLED DR SALAS SPOKE WITH YELITZA AT THE OFFICE STATED WILL INFORM THE DOCTOR.
[2019-05-26] MEDS ORDERED: LIOT5TAB7 PO (16:11)
[2019-05-26] MEDS ORDERED: LEVO175T2 PO (16:11)
[2019-05-26] MEDS ORDERED: OXYB5TAB11 PO (16:13)
[2019-05-26] MEDS ORDERED: TRAM50TA2 PO (16:15)
[2019-05-26] MEDS: OXYBUTYNIN CHLORIDE 5 MG TABLET PO SCH (16:45)
[2019-05-26] MEDS ORDERED: RIVAROXABAN 10 MG TABLET PO SCH (18:00)
--- NOTE | 2019-05-26 18:16 | NUR ---
PATIENT IS SITTING UP ON THE CHAIR IN HER ROOM EATING DINNER INSTRUCTED TO KEEP BOTH LOWER EXT ELEVATED TO REDUCE SWELLING AND SHE EXPRESSED UNDERSTANDING.
[2019-05-26 19:30] VITALS: BP 142/86
[2019-05-26 19:55] VITALS: BP 142/86
--- NOTE | 2019-05-26 20:00 | NUR ---
Patient received sitting up in chair, resting comfortably. Patient is alert and oriented x4 with no complaints of pain or discomfort at this time. IVC site on left hand is patent and intact. All safety and fall precaution measures are in place. Call light and personal items are within reach at all times. Will continue to monitor.
[2019-05-26] MEDS: ATORVASTATIN 10 MG TABLET PO SCH (20:35)
[2019-05-26] MEDS ORDERED: SIMVASTATIN 20 MG TABLET PO SCH (21:00)
[2019-05-27] MEDS: VANCOMYCIN IV 2,000 MG in IV DEXTROSE 5% 500 ML IV SCH ×2 (02:51→21:14)
--- NOTE | 2019-05-27 03:00 | NUR ---
Patient complaining of burning at IV site while IV vancomycin was being infused. Nurse stopped IV infusion of antibiotic. IV site is cool to touch but does not show any s/s of infiltration. Had OSMAR nurse attempt to start new IV site without success. Nurse contacted ED to request ED nurse come and attempt new IV site. Current IV site left in place until new IV site can be started.
[2019-05-27] MEDS: OXYCODONE/APAP 5-325 MG TABLET PO PRN ×3 (03:07→21:11)
[2019-05-27] MEDS: OXYCODONE HCL 5 MG TABLET PO PRN ×3 (03:07→21:30)
--- NOTE | 2019-05-27 05:08 | NUR ---
Patient slept intermittently throughout night. Complaint of pain addressed with prescribed analgesics as ordered. All safety and fall precaution measures are in place. Call light and personal items are within reach at all times.
[2019-05-27 05:52] VITALS: BP 132/62
[2019-05-27] MEDS: diphenhydrAMINE 50 MG CAPSULE PO PRN (05:58)
[2019-05-27] MEDS: PANTOPRAZOLE SODIUM 40 MG TABLET.DR PO SCH (06:08)
[2019-05-27] MEDS: LEVOTHYROXINE SODIUM 175 MCG TABLET PO SCH (06:08)
[2019-05-27] MEDS: LIOTHYRONINE SODIUM 5 MCG TABLET PO SCH (06:08)
[2019-05-27] MEDS ORDERED: POLYETHYLENE GLYCOL 3350 238 GM POWDER PO PRN (08:15)
[2019-05-27] MEDS: METOCLOPRAMIDE HCL 10 MG TABLET PO SCH ×4 (08:29→21:12)
[2019-05-27] MEDS ORDERED: MIRALAX 17 GM POWD.PACK PO PRN (08:30)
[2019-05-27] MEDS: MULTIVITAMINS,THERAPEUTIC TABLET PO SCH (08:31)
[2019-05-27] MEDS: DILTIAZEM HCL CD 240 MG CAP.SR.24H PO SCH (08:31)
[2019-05-27] MEDS: ASPIRIN 81 MG TAB.CHEW PO SCH (08:31)
[2019-05-27] MEDS: ESCITALOPRAM OXALATE 10 MG TABLET PO SCH (08:31)
[2019-05-27] MEDS: OXYBUTYNIN CHLORIDE 5 MG TABLET PO SCH ×2 (08:31→16:43)
[2019-05-27] MEDS: DIVALPROEX 500 MG TABLET.DR PO SCH ×2 (08:31→21:11)
[2019-05-27] MEDS: CYCLOBENZAPRINE HCL 10 MG TABLET PO SCH ×3 (08:31→21:12)
[2019-05-27] MEDS: METOPROLOL TARTRATE 50 MG TABLET PO SCH ×2 (08:32→21:11)
--- NOTE | 2019-05-27 11:18 | NUR ---
Clinical Pharmacy Note: Vancomycin Dosing per Pharmacy Subjective: Vancomycin IV to continue on this 59 female patient for cellulitis. Objective: BUN 19/Scr 0.9 (05/26) WBC 5.3 (05/26) Temperature 98.6 ht 155 cm wt 145 kg Assessment/Plan: Will continue same dose of vancomycin 2000mg IVPB Q18hr for a predicted vancomycin steady state trough level of 17.8 mcg/ml. 3rd dose today at 2100. Will draw a vancomycin trough level prior to the 4th dose of vancomycin (ordered for 05/28 at 1430). Pharmacy shall review the level & adjust the dose if needed. Will follow daily.
[2019-05-27 11:36] VITALS: BP 135/67
--- NOTE | 2019-05-27 15:45 | NUR ---
Patient alert and oriented, no distress noted or complaints of pain at this moment. Patient has PRN pain medications which she has receieved this shift, effective. Patient has not had bowel movement, miralax PRN given today. Continues on antibiotics, vancomycin. Dewitt in place, draining well for strict I&O. End of shift chart check, will endorse care to oncoming shift.
[2019-05-27 16:04] VITALS: BP 132/79
--- NOTE | 2019-05-27 19:43 | NUR ---
Patient calm and comfortable with no signs of distress. patient laying in bed with call light in reach.
[2019-05-27 20:50] VITALS: BP 132/84
[2019-05-27] MEDS: ATORVASTATIN 10 MG TABLET PO SCH (21:12)
[2019-05-28] MEDS: OXYCODONE/APAP 5-325 MG TABLET PO PRN ×2 (04:55→16:36)
[2019-05-28] MEDS: OXYCODONE HCL 5 MG TABLET PO PRN ×2 (04:55→16:32)
[2019-05-28 05:18] VITALS: BP 148/80
[2019-05-28 06:29] LABS: BASOPHILS % (AUTO) 0.5 % (0.0-2.0); EOSINOPHILS # (AUTO) 0.1 K/uL (0.0-0.7); EOSINOPHILS % (AUTO) 2.3 % (0.0-7.0); HEMATOCRIT 35.3 % (31.2-41.9); LYMPHOCYTES # (AUTO) 2.2 K/uL (20.0-40.0); LYMPHOCYTES % (AUTO) 36.2 % (20.5-51.5); MEAN CORPUSCULAR HEMOGLOBIN 30.7 uug (24.7-32.8); MEAN CORPUSCULAR HGB CONC 34 g/dL (32.3-35.6); MEAN CORPUSCULAR VOLUME 90.8 fL (75.5-95.3); MONOCYTES # (AUTO) 0.9 K/uL (2.0-10.0); MONOCYTES % (AUTO) 15.1 % (0.0-11.0); NEUTROPHILS # (AUTO) 2.8 K/uL (1.8-8.9); NEUTROPHILS % (AUTO) 45.9 % (38.5-71.5); PLATELET COUNT (AUTO) 188 K/uL (179-408); RED BLOOD CELL COUNT(AUTO) 3.89 MIL/uL (3.63-4.92); WHITE BLOOD COUNT (AUTO) 6.2 K/uL (3.8-11.8)
[2019-05-28 06:33] LABS: BILIRUBIN,TOTAL 0.2 mg/dL (0.2-1.0); CREATININE 0.8 mg/dL (0.6-1.3); MAGNESIUM 2.2 mg/dL (1.8-2.4); PHOSPHOROUS 4.6 mg/dL (2.5-4.9); TOTAL PROTEIN, SERUM 6.3 g/dL (6.4-8.2)
[2019-05-28] MEDS: LEVOTHYROXINE SODIUM 175 MCG TABLET PO SCH (06:46)
[2019-05-28] MEDS: PANTOPRAZOLE SODIUM 40 MG TABLET.DR PO SCH (06:46)
[2019-05-28] MEDS: LIOTHYRONINE SODIUM 5 MCG TABLET PO SCH (06:46)
[2019-05-28] MEDS: METOCLOPRAMIDE HCL 10 MG TABLET PO SCH ×3 (06:46→16:27)
--- NOTE | 2019-05-28 07:20 | NUR ---
Received Patient in Bed, awake and verbally responsive. No signs of Respiratory distress noted. No SOB. No complain of Pain or Discomfort. Bilateral leg still noted with redness. Right Upper Arm IV intact. All needs attended and met. will continue to monitor.
[2019-05-28 07:21] LABS: EOSINOPHILS % (MANUAL) 2 % (0-8); LYMPHOCYTES % (MANUAL) 32 % (20-40); MONOCYTES % (MANUAL) 13 % (2-10); NEUTROPHILS % (MANUAL) 53 % (42-75)
[2019-05-28] MEDS: ASPIRIN 81 MG TAB.CHEW PO SCH (08:29)
[2019-05-28] MEDS: CYCLOBENZAPRINE HCL 10 MG TABLET PO SCH ×2 (08:30→16:27)
[2019-05-28] MEDS: OXYBUTYNIN CHLORIDE 5 MG TABLET PO SCH ×2 (08:30→16:27)
[2019-05-28] MEDS: DIVALPROEX 500 MG TABLET.DR PO SCH (08:30)
[2019-05-28] MEDS: DILTIAZEM HCL CD 240 MG CAP.SR.24H PO SCH (08:30)
[2019-05-28] MEDS: MULTIVITAMINS,THERAPEUTIC TABLET PO SCH (08:31)
[2019-05-28] MEDS: METOPROLOL TARTRATE 50 MG TABLET PO SCH (08:31)
[2019-05-28] MEDS: ESCITALOPRAM OXALATE 10 MG TABLET PO SCH (08:31)
[2019-05-28 11:03] VITALS: BP 119/65
--- NOTE | 2019-05-28 12:00 | NUR ---
Patient with Order to Discharge to [facility]. Patient made aware.
[2019-05-28 15:10] VITALS: BP 122/68
--- NOTE | 2019-05-28 17:25 | NUR ---
Patient was picked up by [facility] via [facility] in stable Condition, Discharge Instruction reviewed with patient and verbalized Understanding. IV Access, wrist band and Dewitt Catheter was removed. All belongings was given sent with patient. Patient left in stable condition. No signs of Respiratory distress noted. Pain medication given prior discharge. Report given to Jong from [facility].
== END 2019-05-28 17:25 | DRG 383 ==
LOC: ER 18:12 → MEDSURG3 21:02
PROVIDERS: ADMIT Internal Medicine; ATTEND Internal Medicine
DX: L03.116 Cellulitis of left lower limb (principal); E44.0 Moderate protein-calorie malnutrition; L03.115 Cellulitis of right lower limb; E66.01 Morbid (severe) obesity due to excess calories; E78.5 Hyperlipidemia, unspecified; J44.9 Chronic obstructive pulmonary disease, unspecified; K58.9 Irritable bowel syndrome, unspecified; F31.9 Bipolar disorder, unspecified; Z68.44 Body mass index [BMI] 60.0-69.9, adult; F12.90 Cannabis use, unspecified, uncomplicated; Z79.890 Hormone replacement therapy; Z79.01 Long term (current) use of anticoagulants; Z79.899 Other long term (current) drug therapy; K21.9 Gastro-esophageal reflux disease without esophagitis; I10 Essential (primary) hypertension; R60.0 Localized edema; E46 Unspecified protein-calorie malnutrition
CPT/HCPCS: 36415; 70030-TC; 71045; 83690; 83735; 84100; 85025; 85730; 87086; 93005; A4663; G0378; J1940; J3370; J7040; J7050; J7060; J8597; Q0163

== ENCOUNTER 2019-06-13 15:23 | Inpatient (IN) | payer MEDICAID ==
[~2019-06-13] VITALS: Ht 157.5 cm; Wt 112.5 kg
[2019-06-16 12:11] VITALS: BP 143/83
== END 2019-06-16 16:00 | DRG 383 ==
LOC: ER 15:23 → MEDSURG3 17:05
PROVIDERS: ADMIT Internal Medicine Nephrology; ATTEND Internal Medicine Nephrology
DX: L03.115 Cellulitis of right lower limb (principal); E66.01 Morbid (severe) obesity due to excess calories; L03.116 Cellulitis of left lower limb; S80.862S Insect bite (nonvenomous), left lower leg, sequela; S80.861S Insect bite (nonvenomous), right lower leg, sequela; W57.XXXS Bitten or stung by nonvenomous insect and other nonvenomous arthropods, sequela; I89.0 Lymphedema, not elsewhere classified; E78.5 Hyperlipidemia, unspecified; K58.1 Irritable bowel syndrome with constipation; I48.91 Unspecified atrial fibrillation; F31.9 Bipolar disorder, unspecified; E03.9 Hypothyroidism, unspecified; I10 Essential (primary) hypertension; F12.90 Cannabis use, unspecified, uncomplicated; Z68.42 Body mass index [BMI] 45.0-49.9, adult; Z71.3 Dietary counseling and surveillance; Z79.890 Hormone replacement therapy; Z79.01 Long term (current) use of anticoagulants; Z79.899 Other long term (current) drug therapy; K21.9 Gastro-esophageal reflux disease without esophagitis; J44.9 Chronic obstructive pulmonary disease, unspecified
CPT/HCPCS: 36415; 70030-TC; 71045; 83605; 83690; 83735; 84100; 85025; 85730; 87040; 93005; 93307; A4663; G0378; J1170; J1940; J2405; J3370; J7030; J7050; J7060; J8597; Q0163

== ENCOUNTER 2019-08-03 16:51 | Emergency (ER) | payer MEDICAID, OTHER ==
[~2019-08-03] VITALS: Ht 160 cm; Wt 136.1 kg
[~2019-08-03 16:51] MED LIST changes: +LEVO137T2 PO; -LEVO150T8 PO; -LEVO25TA9 PO; +LIOT5TAB7 PO; -LIOT5TAB9 PO; +SIMV20TA6 PO
--- NOTE | 2019-08-03 17:00 | NUR ---
Patient bib pvt ambulance from [facility] for c/o dysuria and urinary frequency. Patient A/Ox4. Speech clear, speaks in complete sentences. Respiratory even and unlabored, no cough no sob.
[2019-08-03] MEDS ORDERED: PHENAZOPYRIDINE HCL 100 MG TABLET PO ONE (17:15)
[2019-08-03] MEDS ORDERED: PHENAZOPYRIDINE HCL 100 MG TABLET ONE (17:33)
[2019-08-03 18:00] LABS: *BILIRUBIN,URIN NEGATIVE (NEGATIVE); *BLOOD, URINE NEGATIVE (NEGATIVE); *CLARITY,URINE CLEAR (CLEAR); *COLOR,URINE YELLOW (YELLOW); *KETONES,URINE NEGATIVE (NEGATIVE); *UROBILINOGEN,URINE 0.2 E.U./dl (NORMAL); LEUKOCYTE ESTERASE ,URINE NEGATIVE (NEGATIVE); NITRITE, URINE NEGATIVE (NEGATIVE); UGLUCOSE NEGATIVE (NEGATIVE)
--- NOTE | 2019-08-03 18:13 | NUR ---
Per Herber Clark 2000 trip#[id number]
--- NOTE | 2019-08-03 19:03 | NUR ---
Patient discharged to home in stable conditon. Written and verbal after care instructions given. Patient verbalizes understanding of instructions. Patient wheeled out via wheelchair. Patient will be taking rideshare back to facility.
[2019-08-03 19:06] VITALS: BP 142/87
== END 2019-08-03 19:08 | disposition home or self-care (01) ==
LOC: ER 16:51
DX: R32 Unspecified urinary incontinence (principal); I10 Essential (primary) hypertension; E78.5 Hyperlipidemia, unspecified; J44.9 Chronic obstructive pulmonary disease, unspecified; K21.9 Gastro-esophageal reflux disease without esophagitis; G89.29 Other chronic pain; M54.9 Dorsalgia, unspecified; F31.9 Bipolar disorder, unspecified; F12.10 Cannabis abuse, uncomplicated; F17.200 Nicotine dependence, unspecified, uncomplicated; Z88.0 Allergy status to penicillin; Z88.8 Allergy status to other drugs, medicaments and biological substances; Z79.899 Other long term (current) drug therapy; Z79.1 Long term (current) use of non-steroidal anti-inflammatories (NSAID); Z79.82 Long term (current) use of aspirin
CPT/HCPCS: 87086; A4663

== ENCOUNTER 2019-08-23 23:19 | Emergency (ER) | payer MEDICAID, OTHER ==
[~2019-08-23] VITALS: Ht 157.5 cm; Wt 161.9 kg
[~2019-08-23 23:19] MED LIST changes: +DILT-3 PO; -DILT240C2 PO; -OXYB5TAB11 PO; +OXYB5TAB16 PO; +SIMV-46 PO; -SIMV20TA6 PO
--- NOTE | 2019-08-23 23:40 | NUR ---
PT IS BIB RESCUE FROM [facility] VIA GURNEY,O2 AT 3LMP, C/O DRAINING COLD WATER AFTER SCRATCHING RIGHT INNER UPPER THIGH AND L LOWER LEG ALONG WITH R LOWER LEG +GAUZE ON RIGHT INNER UPPER THIGH PT ABLE TO STAND AND TRANSFER TO [facility] CHANGED INTO PT PABLO REYES AT BEDSIDE FOR HX AND PHYSICAL O2 DISCONTIUED, NO REPIRATORY EFFORT/DISTRESS SIDERAILSX2 UP BED AT LOWEST POSITION Addendum: 08/23/19 at 2012 by MARICASTFRANSISCO C/O DRAINING COLD WATER AFTER SCRATCHING LEFT INNER UPPER THIGH AND RIGHT LOWER LEG ALONG WITH LEFT ANKLE NOTED SCRATCH MUNROE AT APPROX 3-4 IN IN LENGTH NO ERYTHEMA, NO S/S INFECTION +DRAINING CLEAR OOZING FLUID
--- NOTE | 2019-08-23 23:56 | NUR ---
PT WAS SEEN STANDING AND HOLDING ON TO GURNEY, APPLIED [id number] TO LEFT INNER UPPER THIGH, WRAPPED WITH 6IN MARTHA WRAP AND 4IN MARTHA WRAP, CMS CHECK DONE PT ABLE TO SIT ON SUPINE IN HIGH OLGUIN'S ON GURNEY ABLE TO TOLERATE ELEVATING LEFT LEG
[2019-08-24] MEDS ORDERED: HYDROCODONE/APAP 10-325 MG TABLET PO ONE
[2019-08-24] MEDS ORDERED: HYDROCODONE/APAP 10-325 MG TABLET ONE (00:05)
--- NOTE | 2019-08-24 00:42 | NUR ---
[facility] [phone] REQUIRING AUTHORIZATION # AND INSULATION WORKER INTERIOR SURFACE APPROVAL FOR TRANSFER DIESEL MECHANIC [employer]STRUCTION FOR PROMISE LELA/NATHALIA/GEOVANNY WILL CALL BACK FOR DECISION ON COVERAGE FOR TRANSPORT
--- NOTE | 2019-08-24 00:51 | NUR ---
PURE PAK MACHINE OPERATOR CALLED BACK (DASHAWN) AUTH # [id number]
--- NOTE | 2019-08-24 00:57 | NUR ---
PT WILL BE TRANSPORTED VIA [facility] ETA 2.5HRS
[2019-08-24] MEDS ORDERED: ACETAMINOPHEN 325 MG TABLET PO ONE (01:15)
[2019-08-24] MEDS ORDERED: ACETAMINOPHEN 325 MG TABLET ONE (01:43)
--- NOTE | 2019-08-24 02:01 | NUR ---
PT ABLE TO AMBULATE WITH ASSISTANCE OF TOWER ATTENDANT TOWARDS TOILET ABLE TO VOID FREELY PT ALSO ABLE TO TOLERATE JELLO(2CUPS) AND PO MEDS PT SEATED ON GURNEY WITH L LEG ELEVATED KEPT WARM DRY AND COMFORTABLE MONITORED ACCORDINGLY
--- NOTE | 2019-08-24 02:40 | NUR ---
PT AWAKE AND LISTENING TO MUSIC NAD DENIES PAIN SIDERAILSX2 UP BED AT LOWEST POSITION [facility] ARRIVED BUT STATES BATTERY OF GURNEY IS LOW. WILL COME BACK IN 20MINS. WILL REQUIRE BARIATRIC GURNEY
--- NOTE | 2019-08-24 03:25 | NUR ---
[facility] AT BED[facility]IDE FOR TRANSPORT BACK TO [facility]
[2019-08-24 03:41] VITALS: BP 113/63
== END 2019-08-24 03:42 | disposition home or self-care (01) ==
LOC: ER 23:19
DX: S70.312A Abrasion, left thigh, initial encounter (principal); I89.0 Lymphedema, not elsewhere classified; I10 Essential (primary) hypertension; E78.5 Hyperlipidemia, unspecified; J44.9 Chronic obstructive pulmonary disease, unspecified; K21.9 Gastro-esophageal reflux disease without esophagitis; F31.9 Bipolar disorder, unspecified; F17.200 Nicotine dependence, unspecified, uncomplicated; F12.10 Cannabis abuse, uncomplicated; Z88.0 Allergy status to penicillin; Z88.8 Allergy status to other drugs, medicaments and biological substances; Z79.82 Long term (current) use of aspirin; Z79.899 Other long term (current) drug therapy; Z79.1 Long term (current) use of non-steroidal anti-inflammatories (NSAID); X58.XXXA Exposure to other specified factors, initial encounter; Y93.89 Activity, other specified; Y92.89 Other specified places as the place of occurrence of the external cause; Y99.8 Other external cause status
CPT/HCPCS: A4663

== ENCOUNTER 2019-09-15 00:56 | Inpatient (IN) | payer MEDICAID ==
[~2019-09-15] VITALS: Ht 157.5 cm; Wt 162.4 kg
[2019-09-15] MEDS ORDERED: MIRA50TA PO (01:42)
[2019-09-15] MEDS ORDERED: PANT40TA4 PO (01:42)
[2019-09-15] MEDS ORDERED: DOCU-141 PO (01:42)
[2019-09-15 02:48] LABS: BASOPHILS # (AUTO) 0.1 K/uL (0.0-8.0); EOSINOPHILS # (AUTO) 0.1 K/uL (0.0-0.7); EOSINOPHILS % (AUTO) 2.5 % (0.0-7.0); HEMATOCRIT 38.3 % (31.2-41.9); HEMOGLOBIN 12.7 g/dL (10.9-14.3); LYMPHOCYTES # (AUTO) 1.9 K/uL (20.0-40.0); LYMPHOCYTES % (AUTO) 34.7 % (20.5-51.5); MEAN CORPUSCULAR HEMOGLOBIN 31.1 uug (24.7-32.8); MEAN CORPUSCULAR HGB CONC 33 g/dL (32.3-35.6); MEAN CORPUSCULAR VOLUME 93.6 fL (75.5-95.3); MONOCYTES # (AUTO) 0.8 K/uL (2.0-10.0); MONOCYTES % (AUTO) 14.5 % (0.0-11.0); NEUTROPHILS # (AUTO) 2.6 K/uL (1.8-8.9); NEUTROPHILS % (AUTO) 47.3 % (38.5-71.5); PLATELET COUNT (AUTO) 227 K/uL (179-408); RED BLOOD CELL COUNT(AUTO) 4.09 MIL/uL (3.63-4.92); WHITE BLOOD COUNT (AUTO) 5.5 K/uL (3.8-11.8)
[2019-09-15 02:53] LABS: CARBON DIOXIDE 34 mmol/L (21-32); CHLORIDE 103 mmol/L (98-107); CREATININE 0.8 mg/dL (0.6-1.3); GLUCOSE 96 mg/dL (74-106); POTASSIUM 4.5 mmol/L (3.5-5.1); UREA NITROGEN, BLOOD 22 mg/dL (7-18)
[2019-09-15 02:59] LABS: ALANINE AMINOTRANSFERASE 16 U/L (14-59); ALKALINE PHOSPHATASE 35 U/L (50-136); ASPARTATE AMINOTRANSFERASE 10 U/L (15-37); BILIRUBIN,DIRECT 0.1 mg/dL (0.0-0.2); BILIRUBIN,TOTAL 0.2 mg/dL (0.2-1.0); TOTAL PROTEIN, SERUM 6.7 g/dL (6.4-8.2)
[2019-09-15] MEDS ORDERED: MORPHINE SULFATE 4 MG/1 ML DISP.SYRIN IV ONE ×2 (03:00→04:30)
[2019-09-15] MEDS ORDERED: MORPHINE SULFATE 4 MG/1 ML DISP.SYRIN ONE ×2 (03:03→04:27)
[2019-09-15 03:08] LABS: ETHANOL < 3 MG/DL (0-0); THYROID STIMULATING HORMONE 16.839 mIU/mL (0.358-3.740)
--- NOTE | 2019-09-15 04:06 | NUR ---
Patient c/o non radiating chest pain describing pain as pressure 8/10. Dr Florentino made aware.
[2019-09-15 04:13] LABS: *BILIRUBIN,URIN NEGATIVE (NEGATIVE); *BLOOD, URINE NEGATIVE (NEGATIVE); *CLARITY,URINE CLEAR (CLEAR); *COLOR,URINE YELLOW (YELLOW); *KETONES,URINE NEGATIVE (NEGATIVE); *UROBILINOGEN,URINE 0.2 E.U./dl (NORMAL); LEUKOCYTE ESTERASE ,URINE NEGATIVE (NEGATIVE); NITRITE, URINE NEGATIVE (NEGATIVE); UGLUCOSE NEGATIVE (NEGATIVE)
--- NOTE | 2019-09-15 04:21 | NUR ---
DR BENITES WAS CALLED LEFT MESSAGE. WAITING FOR CALLBACK.
[2019-09-15] MEDS ORDERED: ASPIRIN 325 MG TABLET ONE (04:26)
[2019-09-15] MEDS ORDERED: ASPIRIN 325 MG TABLET PO ONE (04:30)
--- NOTE | 2019-09-15 04:36 | NUR ---
DR BENITES CALLED BACK ACCEPT THE ADMISSION.
--- NOTE | 2019-09-15 06:17 | NUR ---
pt transfered to floor in stable condition.
--- NOTE | 2019-09-15 06:30 | NUR ---
Received patient from ER via gurney. Ambulated from the hallway in front of her room to hospital bed. Patient AAOX4. In no acute distress. O2 sat at 97% on RA. Denies ant pain or SOB at this time. NSR on tele at 82/min. IV on right wrist area intact and patent. Safety measure initiated and call dumont within reach.
[2019-09-15 06:39] VITALS: BP 140/67
--- NOTE | 2019-09-15 07:30 | NUR ---
received awake in bed, with c/o generalized weakness and pain, routine admission care done, initial assessment done, called [facility] for admitting orders, safety measures initiated, call light within reach
--- NOTE | 2019-09-15 09:30 | NUR ---
report given to Alma CHAVEZ
--- NOTE | 2019-09-15 09:31 | NUR ---
RECEIVED PT AWAKE, ALERT AND ORIENTEDX3. PT IN NO ACUTE DISTRESS. IV INTACT. PT WANTS TO EAT. TOLD PATIENT THERE'S NO ORDER YET FROM THE DOCTOR. PT WANTS ARMENDARIZ . SAFETY AND COMFORT PROVIDED. WILL CONTINUE TO MONITOR.
[2019-09-15 12:25] VITALS: BP 118/63
[2019-09-15] MEDS ORDERED: TRAMADOL HCL 50 MG TABLET PO PRN (13:00)
[2019-09-15] MEDS ORDERED: IBUPROFEN 800 MG TABLET PO PRN (13:00)
[2019-09-15] MEDS ORDERED: ALBUTEROL SULFATE 8 GM HFA.AER.AD IH PRN (13:00)
[2019-09-15] MEDS ORDERED: diphenhydrAMINE 50 MG CAPSULE PO PRN (13:00)
[2019-09-15] MEDS ORDERED: Medication Not On Formulary EA (Oxycodone Hcl/Acetaminophen (Oxycodone-Apap 10-325 Mg Ta PO PRN (13:00)
[2019-09-15] MEDS ORDERED: ALBUTEROL SULFATE 2.5 MG/3 ML NEBU NEB PRN (13:15)
[2019-09-15] MEDS ORDERED: LEVOTHYROXINE SODIUM 137 MCG TABLET PO SCH (14:00)
[2019-09-15] MEDS: DIVALPROEX 500 MG TABLET.DR PO SCH ×2 (14:30→21:21)
[2019-09-15] MEDS: DILTIAZEM HCL CD 240 MG CAP.SR.24H PO SCH (14:30)
[2019-09-15] MEDS: METOPROLOL TARTRATE 50 MG TABLET PO SCH ×2 (14:31→21:22)
[2019-09-15] MEDS: OXYBUTYNIN CHLORIDE 5 MG TABLET PO SCH ×2 (14:32→17:32)
[2019-09-15] MEDS: LEVOTHYROXINE SODIUM 175 MCG TABLET PO SCH (14:32)
[2019-09-15] MEDS: PANTOPRAZOLE SODIUM 40 MG TABLET.DR PO SCH (14:33)
[2019-09-15] MEDS: ESCITALOPRAM OXALATE 10 MG TABLET PO SCH (14:34)
[2019-09-15 17:04] VITALS: BP 140/76
[2019-09-15] MEDS: OXYCODONE/APAP 5-325 MG TABLET PO PRN ×2 (17:31→23:46)
[2019-09-15] MEDS: DOCUSATE SODIUM 100 MG CAPSULE PO SCH (17:32)
[2019-09-15] MEDS: CYCLOBENZAPRINE HCL 10 MG TABLET PO SCH (17:32)
[2019-09-15] MEDS: METOCLOPRAMIDE HCL 10 MG TABLET PO SCH ×2 (17:32→21:21)
[2019-09-15] MEDS: RIVAROXABAN 10 MG TABLET PO SCH (18:34)
--- NOTE | 2019-09-15 19:00 | NUR ---
PT IN NO ACUTE DISTRESS. PT IV INTACT. ARMENDARIZ CATHETER INTACT. PRN FOR PAIN MEDICATION GIVEN AND PT TOLERATED IT WELL. SAFETY AND COMFORT PROVIDED. ALL NEEDS ARE MET. WILL ENDORSE TO INCOMING NURSE FOR CONTINUITY OF CARE.
[2019-09-15 20:45] VITALS: BP 144/75
[2019-09-15] MEDS: FUROSEMIDE 40 MG/4 ML VIAL IV SCH (21:21)
[2019-09-15] MEDS: ATORVASTATIN 10 MG TABLET PO SCH (21:21)
[2019-09-16 01:04] VITALS: BP 143/71
[2019-09-16] MEDS: OXYCODONE/APAP 5-325 MG TABLET PO PRN ×3 (03:53→17:28)
[2019-09-16 04:17] VITALS: BP 129/68
--- NOTE | 2019-09-16 06:03 | NUR ---
patient received lying in bed. no signs of acute distress and v/s stable throughout shift. low grade fever noted at midnight, monitored throughout shift and currently afebrile. c/o of pain Ultram administered x1 and Percocet administered x2. bed in lowest position, side rails up x2, and bed alarm on. NSR on tele monitor. will continue plan of care and endorse care accordingly to morning nurse.
[2019-09-16] MEDS: LEVOTHYROXINE SODIUM 175 MCG TABLET PO SCH (06:21)
[2019-09-16] MEDS: PANTOPRAZOLE SODIUM 40 MG TABLET.DR PO SCH (06:21)
[2019-09-16] MEDS: METOCLOPRAMIDE HCL 10 MG TABLET PO SCH ×4 (06:32→21:02)
[2019-09-16 06:53] LABS: BASOPHILS # (AUTO) 0.1 K/uL (0.0-8.0); BASOPHILS % (AUTO) 0.9 % (0.0-2.0); EOSINOPHILS # (AUTO) 0.1 K/uL (0.0-0.7); EOSINOPHILS % (AUTO) 1.5 % (0.0-7.0); HEMOGLOBIN 12.8 g/dL (10.9-14.3); LYMPHOCYTES % (AUTO) 32.4 % (20.5-51.5); MEAN CORPUSCULAR HEMOGLOBIN 31.1 uug (24.7-32.8); MEAN CORPUSCULAR HGB CONC 33 g/dL (32.3-35.6); MEAN CORPUSCULAR VOLUME 95.1 fL (75.5-95.3); MONOCYTES # (AUTO) 0.7 K/uL (2.0-10.0); NEUTROPHILS # (AUTO) 3.4 K/uL (1.8-8.9); NEUTROPHILS % (AUTO) 54.2 % (38.5-71.5); PLATELET COUNT (AUTO) 208 K/uL (179-408); WHITE BLOOD COUNT (AUTO) 6.2 K/uL (3.8-11.8)
[2019-09-16 07:17] LABS: BILIRUBIN,TOTAL 0.3 mg/dL (0.2-1.0); CREATININE 0.8 mg/dL (0.6-1.3); MAGNESIUM 1.8 mg/dL (1.8-2.4); PHOSPHOROUS 3.9 mg/dL (2.5-4.9); POTASSIUM 3.3 mmol/L (3.5-5.1); TOTAL PROTEIN, SERUM 6.3 g/dL (6.4-8.2)
--- NOTE | 2019-09-16 07:20 | NUR ---
Received patient sleeping in bed. No acute distress noted. Bed in lowest position, side rails up x2, call light within reach. Will continue to monitor.
[2019-09-16] MEDS: FUROSEMIDE 40 MG/4 ML VIAL IV SCH ×2 (08:12→21:02)
[2019-09-16] MEDS: OXYBUTYNIN CHLORIDE 5 MG TABLET PO SCH ×3 (08:13→17:27)
[2019-09-16] MEDS: DOCUSATE SODIUM 100 MG CAPSULE PO SCH ×2 (08:13→17:27)
[2019-09-16] MEDS: DIVALPROEX 500 MG TABLET.DR PO SCH ×2 (08:13→21:02)
[2019-09-16] MEDS: METOPROLOL TARTRATE 50 MG TABLET PO SCH ×2 (08:14→21:03)
[2019-09-16] MEDS: CYCLOBENZAPRINE HCL 10 MG TABLET PO SCH ×2 (08:14→17:27)
[2019-09-16] MEDS: ESCITALOPRAM OXALATE 10 MG TABLET PO SCH (08:14)
[2019-09-16] MEDS: DILTIAZEM HCL CD 240 MG CAP.SR.24H PO SCH (08:14)
[2019-09-16] MEDS ORDERED: Medication Not On Formulary EA (Mirabegron (Myrbetriq) 50 MG) PO SCH (09:00)
[2019-09-16] MEDS ORDERED: ASPIRIN 81 MG TAB.CHEW PO SCH (09:00)
[2019-09-16] MEDS ORDERED: POTASSIUM CHLORIDE 20 MEQ TAB.PRT.SR PO ONE (10:00)
[2019-09-16] MEDS: LACTULOSE 20 G/30 ML LIQUID UDC PO PRN ×2 (10:51→21:23)
[2019-09-16 11:53] VITALS: BP 136/66
--- NOTE | 2019-09-16 13:51 | NUR ---
WOUND CARE CONSULT: PT REFUSED SKIN ASSESSMENT. PER NURSING ASSESSMENT AND PHOTOS, THERE IS REDNESS, RASH AND SOME OPEN SKIN TO BREASTFOLDS AND GROIN FOLDS, PRESENT ON ADMISSION. RECOMMENDATIONS MADE FOR SKIN CARE AND PROTECTION. DISCUSSED WITH NURSING STAFF. WILL SEE PRN. PT ABLE TO TURN AND REPOSITION HERSELF IN BED. PT IS CONTINENT AT THIS TIME WITH ARMENDARIZ CATH.
[2019-09-16] MEDS ORDERED: Z GUARD REMEDY PASTE 57 GM TUBE TOP PRN (14:00)
--- NOTE | 2019-09-16 15:30 | NUR ---
Patient taken to [facility] for CT of cervical spine and Lumbar spine. Patient taken via ambulance.
[2019-09-16 17:21] VITALS: BP 122/57
[2019-09-16] MEDS: CLOTRIMAZOLE 1% CREAM 30 GM TUBE TOP SCH (17:39)
[2019-09-16] MEDS: RIVAROXABAN 10 MG TABLET PO SCH (17:40)
--- NOTE | 2019-09-16 18:32 | NUR ---
Patient slept intermittently throughout day. Patient taken to [place] for CT patient unable to have exam done due to patients obesity. Patient reported pain, pain medication administered. No acute distress throughout shift. Safety measures provided. Will endorse to oncoming nurse.
--- NOTE | 2019-09-16 19:30 | NUR ---
RECEIVED PT AWAKE, ALERT AND ORIENTEDX4. PT SHOWS NO SIGNS OF ACUTE DISTRESS. PT IV INTACT. SAFETY AND COMFORT PROVIDED. PT ARMENDARIZ INTACT AND DWELLING LOUISE COLORED URINE. WILL CONTINUE TO MONITOR.
[2019-09-16 20:37] VITALS: BP 151/76
[2019-09-16] MEDS: ATORVASTATIN 10 MG TABLET PO SCH (21:02)
[2019-09-16] MEDS: Z GUARD REMEDY PASTE 57 GM TUBE TOP SCH (21:23)
[2019-09-17] MEDS: OXYCODONE/APAP 5-325 MG TABLET PO PRN ×3 (00:13→13:44)
[2019-09-17 00:37] VITALS: BP 138/78
--- NOTE | 2019-09-17 00:45 | NUR ---
DR. KENNEY PARIHK ORDERED AMBIEN 5MG HS PRN. PT IN NO ACUTE DISTRESS. WILL CONTINUE TO MONITOR.
[2019-09-17] MEDS ORDERED: ZOLPIDEM 5 MG TABLET PO SCH (01:00)
[2019-09-17 04:00] VITALS: BP 140/71
[2019-09-17] MEDS: LEVOTHYROXINE SODIUM 175 MCG TABLET PO SCH (06:14)
[2019-09-17] MEDS: PANTOPRAZOLE SODIUM 40 MG TABLET.DR PO SCH (06:14)
--- NOTE | 2019-09-17 06:15 | NUR ---
PT SLEPT INTERMITTENTLY. PT SHOWS NO SIGNS OF ACUTE DISTRESS.IV INTACT. ARMENDARIZ INTACT. PT PRN PAIN MEDICATION GIVEN AND PT TOLERATED IT WELL. SAFETY AND COMFORT PROVIDED. ALL NEEDS ARE MET. WILL ENDORSE TO INCOMING NURSE FOR CONTINUITY OF CARE.
[2019-09-17] MEDS: METOCLOPRAMIDE HCL 10 MG TABLET PO SCH ×2 (06:35→11:47)
--- NOTE | 2019-09-17 07:54 | NUR ---
Pt received this morning sitting on edge of bed. Assisted Pt back into bed, repositioned. PRN 2L NC applied for comfort. Pt able to make needs known, AOx4. Plan for the day discussed. Dewitt intact draining nav colored urine well. Pt teaching provided. All comfort and safety needs attended to at this time. Will continue to monitor.
[2019-09-17] MEDS ORDERED: RIVA20TA PO (08:40)
[2019-09-17] MEDS ORDERED: MORPHINE SULFATE 4 MG/1 ML DISP.SYRIN IV ONE (08:45)
[2019-09-17] MEDS: ESCITALOPRAM OXALATE 10 MG TABLET PO SCH (08:54)
[2019-09-17] MEDS: DOCUSATE SODIUM 100 MG CAPSULE PO SCH (08:54)
[2019-09-17] MEDS: DIVALPROEX 500 MG TABLET.DR PO SCH (08:55)
[2019-09-17] MEDS: OXYBUTYNIN CHLORIDE 5 MG TABLET PO SCH ×2 (08:55→13:44)
[2019-09-17] MEDS: CYCLOBENZAPRINE HCL 10 MG TABLET PO SCH (08:55)
[2019-09-17] MEDS: CLOTRIMAZOLE 1% CREAM 30 GM TUBE TOP SCH (08:57)
[2019-09-17] MEDS: FUROSEMIDE 40 MG/4 ML VIAL IV SCH (09:00)
[2019-09-17] MEDS: DILTIAZEM HCL CD 240 MG CAP.SR.24H PO SCH (09:02)
[2019-09-17] MEDS: METOPROLOL TARTRATE 50 MG TABLET PO SCH (09:03)
[2019-09-17] MEDS: Z GUARD REMEDY PASTE 57 GM TUBE TOP SCH (09:03)
[2019-09-17 11:35] VITALS: BP 125/61
--- NOTE | 2019-09-17 13:57 | NUR ---
Discharge order received. Discharge planning includes: "Pt seen by cardiology and restarted on xarelto continue plan of care as ordered. Pt is to follow up with primary who is managing her pain. Pt is to consult assisted living facility to arrange [place] [facility] r/t left arm & shoulder pain." Plan for D/C discussed with Pt. Pt compliant with medications. Report called to Ron CHAVEZ at [facility]. Photos of skin integrity taken. Dewitt removed and Pt able to void independently. IV removed, intact. All belongings accounted for and document signed with copy placed in chart. All comfort and safety needs met at this time. Call light placed within reach, Will complete d/c paperwork and continue to monitor.
--- NOTE | 2019-09-17 15:07 | NUR ---
Discharge paperwork completed, reviewed with Pt, signed, copy placed in chart, and originals provided to Pt. All discharge concerns addressed. Pt assisted to get dressed and transferred to wheelchair. Pt safely escorted out of hospital into a [employer] cab, with cab voucher and belongings. Will remove Pt from system shortly.
== END 2019-09-17 14:45 | DRG 861 ==
LOC: ER 00:59 → MEDSURG3 06:03 → UNDOADMIN 06:03 → TELE3 06:04
PROVIDERS: ADMIT Internal Medicine; ATTEND Internal Medicine
DX: R60.0 Localized edema (principal); E66.2 Morbid (severe) obesity with alveolar hypoventilation; R07.89 Other chest pain; I48.0 Paroxysmal atrial fibrillation; K21.9 Gastro-esophageal reflux disease without esophagitis; R60.1 Generalized edema; Z68.42 Body mass index [BMI] 45.0-49.9, adult; M79.7 Fibromyalgia; J44.9 Chronic obstructive pulmonary disease, unspecified; E78.5 Hyperlipidemia, unspecified; E03.9 Hypothyroidism, unspecified; Z86.711 Personal history of pulmonary embolism; Z91.19 Patient's noncompliance with other medical treatment and regimen; Z79.890 Hormone replacement therapy; F31.9 Bipolar disorder, unspecified; I10 Essential (primary) hypertension; Z79.899 Other long term (current) drug therapy
CPT/HCPCS: 36415; 70030-TC; 71045; 83605; 83735; 84100; 84443; 85025; 85730; 87040; 87086; 93005; 94664; A4663; G0378; G0480; J1940; J2270; J8597

== ENCOUNTER 2019-11-08 16:57 | Emergency (ER) | payer MEDICAID ==
[~2019-11-08] VITALS: Ht 157.5 cm; Wt 150.6 kg
[~2019-11-08 16:57] MED LIST changes: +DOCU-141 PO; -ESOM20CA32 PO; -IBUP-1957 PO; -LIOT5TAB7 PO; +MIRA50TA PO; -MULT1TAB73 PO; +PANT40TA4 PO; -SIMV-46 PO
[2019-11-08] MEDS ORDERED: MAGNESIUM CITRATE 296 ML BOTTLE ONE (17:19)
[2019-11-08] MEDS ORDERED: MAGNESIUM CITRATE 296 ML BOTTLE PO ONE (17:30)
[2019-11-08] MEDS ORDERED: MORPHINE PO (17:35)
--- NOTE | 2019-11-08 17:40 | NUR ---
PT WENT TO THE RESTROOM AND HAD A LARGE BM AND STATED RELIEF AFTERWARD.
--- NOTE | 2019-11-08 17:55 | NUR ---
PER DR. TODD PT MAY BE D/C BACK TO [facility].
--- NOTE | 2019-11-08 18:00 | NUR ---
CALLED [facility] FOR TRANSPORT BACK TO [facility]. TRIP#[id number], ETA [phone] (DELAYED DUE TO BARIATRIC PT).
--- NOTE | 2019-11-08 18:30 | NUR ---
PT IS SITTING IN A CHAIR AT BEDSIDE AND EATING DINNER WITH NAD NOTED, PENDING D/C BACK TO [facility] AT [phone].
--- NOTE | 2019-11-08 19:38 | NUR ---
Assisted pt back to bed. She is watching television. No acute distress noted. Informed pt that her pickup ETA is [phone].
[2019-11-08] MEDS ORDERED: OXYCODONE/APAP 5-325 MG TABLET PO ONE (21:00)
--- NOTE | 2019-11-08 21:29 | NUR ---
Patient discharged to home in stable conditon. Written and verbal after care instructions given. Patient verbalizes understanding of instructions. [facility] here to transport pt back to [facility]. No acute distress noted.
[2019-11-08 21:30] VITALS: BP 161/69
== END 2019-11-08 21:30 | disposition home or self-care (01) ==
LOC: ER 17:05
DX: K59.00 Constipation, unspecified (principal); B37.2 Candidiasis of skin and nail; I10 Essential (primary) hypertension; E78.5 Hyperlipidemia, unspecified; J44.9 Chronic obstructive pulmonary disease, unspecified; K21.9 Gastro-esophageal reflux disease without esophagitis; F31.9 Bipolar disorder, unspecified; F17.200 Nicotine dependence, unspecified, uncomplicated; F12.10 Cannabis abuse, uncomplicated; Z88.0 Allergy status to penicillin; Z88.8 Allergy status to other drugs, medicaments and biological substances; Z79.899 Other long term (current) drug therapy; Z79.82 Long term (current) use of aspirin
CPT/HCPCS: A4663

== ENCOUNTER 2020-03-05 21:27 | Inpatient (IN) | payer MEDICAID ==
[~2020-03-05] VITALS: Ht 165.1 cm; Wt 156.5 kg
[~2020-03-05 21:27] MED LIST changes: +MORPHINE PO; -OXYC-451 PO
[2020-03-05] MEDS ORDERED: HYDR-4354 PO (21:58)
[2020-03-05] MEDS ORDERED: SIMV-46 PO (21:58)
[2020-03-05] MEDS ORDERED: DIVA500T2 PO ×2 (21:58)
[2020-03-05] MEDS ORDERED: FLUC150T5 PO (22:02)
[2020-03-05] MEDS ORDERED: BUSP15TA3 PO (22:02)
[2020-03-05] MEDS ORDERED: ESCI20TA PO (22:02)
[2020-03-05] MEDS ORDERED: TRIA5PAS4 TP (22:02)
[2020-03-05] MEDS ORDERED: DOCU-141 PO (22:02)
[2020-03-05] MEDS ORDERED: ALBU2.5V13 IH (22:02)
[2020-03-05 22:12] LABS: ABG BASE EXCESS -0.2 mmol/L; ABG HCO3 26.4 mmol/L; ABG PCO2 51.2 mmHg (35.0-45.0); ABG SITE LEFT RADIAL; ABG TOTAL HEMOGLOBIN 13.3 G/dL (12.0-16.0); COHb 2.2 % (0.5-1.5); MetHb 0.1 % (0.0-1.5); O2Hb 93.4 % (94.0-97.0); VENT MODE Nasal Cannula
[2020-03-05 22:18] LABS: BASOPHILS % (AUTO) 0.5 % (0.0-2.0); EOSINOPHILS % (AUTO) 0.2 % (0.0-7.0); HEMATOCRIT 40.1 % (31.2-41.9); HEMOGLOBIN 13.1 g/dL (10.9-14.3); LYMPHOCYTES # (AUTO) 0.8 K/uL (20.0-40.0); LYMPHOCYTES % (AUTO) 11.3 % (20.5-51.5); MEAN CORPUSCULAR HEMOGLOBIN 30.3 uug (24.7-32.8); MEAN CORPUSCULAR HGB CONC 33 g/dL (32.3-35.6); MEAN CORPUSCULAR VOLUME 93.2 fL (75.5-95.3); MONOCYTES # (AUTO) 0.9 K/uL (2.0-10.0); MONOCYTES % (AUTO) 13.3 % (0.0-11.0); NEUTROPHILS # (AUTO) 5.3 K/uL (1.8-8.9); NEUTROPHILS % (AUTO) 74.7 % (38.5-71.5); PLATELET COUNT (AUTO) 188 K/uL (179-408); RED BLOOD CELL COUNT(AUTO) 4.31 MIL/uL (3.63-4.92); WHITE BLOOD COUNT (AUTO) 7.1 K/uL (3.8-11.8)
[2020-03-05 22:26] LABS: CREATININE 1.1 mg/dL (0.6-1.3)
[2020-03-05 22:43] LABS: BILIRUBIN,TOTAL 0.4 mg/dL (0.2-1.0); TOTAL PROTEIN, SERUM 7.4 g/dL (6.4-8.2)
[2020-03-05] MEDS ORDERED: levoFLOXacin 750 MG/D5W 150 ML PIGGYBACK IV ONE (22:45)
[2020-03-05] MEDS ORDERED: levoFLOXacin 750MG/D5W 150 ML IV ONE (23:03)
--- NOTE | 2020-03-05 23:04 | NUR ---
Pt out of ER for CT.
[2020-03-05 23:27] LABS: *BILIRUBIN,URIN NEGATIVE (NEGATIVE); *BLOOD, URINE 3+ (NEGATIVE); *CLARITY,URINE CLOUDY (CLEAR); *COLOR,URINE AMBER (YELLOW); *KETONES,URINE NEGATIVE (NEGATIVE); *UROBILINOGEN,URINE 0.2 E.U./dl (NORMAL); LEUKOCYTE ESTERASE ,URINE TRACE (NEGATIVE); NITRITE, URINE NEGATIVE (NEGATIVE); PH,URINE 5.5 (5.0-8.0); UGLUCOSE NEGATIVE (NEGATIVE)
--- NOTE | 2020-03-05 23:33 | NUR ---
Pt back to ER from CT.
[2020-03-05 23:41] LABS: BACTERIA,URINE MODERATE /HPF (NONE SEEN); RBC,URINE TNTC /HPF (0-3); SQUAMOUS EPITHELIAL CELL,UR MODERATE /HPF (NONE SEEN)
[2020-03-05] MEDS ORDERED: HYDROCORTISONE SOD SUCCINATE 100 MG/2 ML VIAL IV ONE ×2 (23:45→23:55)
[2020-03-05] MEDS ORDERED: LEVOTHYROXINE SODIUM 100 MCG VIAL IV ONE ×2 (23:45→23:59)
[2020-03-06 01:00] LABS: ACETAMINOPHEN < 2.0 ug/mL (10-30)
--- NOTE | 2020-03-06 01:04 | NUR ---
Dr. Seals speaking with Dr. Mcwilliams.
--- NOTE | 2020-03-06 01:10 | NUR ---
Pt accepted for admission to [facility], covid floor, diagnosis: pneumonia, possible covid+, under Dr. Mcwilliams.
[2020-03-06 01:15] LABS: *AMPHETAMINE, URINE NEGATIVE (NEGATIVE); *BARBITURATE, URINE NEGATIVE (NEGATIVE); *CANNABINOID, URINE POSITIVE (NEGATIVE); *COCCAINE, URINE NEGATIVE (NEGATIVE); *OPIATE, URINE POSITIVE (NEGATIVE); *PHENCYCLIDINE SCREEN,URINE NEGATIVE (NEGATIVE)
[2020-03-06] MEDS ORDERED: OXYCODONE/APAP 5-325 MG TABLET ONE (01:38)
[2020-03-06] MEDS ORDERED: OXYCODONE/APAP 5-325 MG TABLET PO ONE (01:45)
[2020-03-06] MEDS ORDERED: ONDANSETRON 4 MG/2 ML VIAL ONE (03:14)
[2020-03-06] MEDS ORDERED: MORPHINE SULFATE 2 MG/1 ML DISP.SYRIN ONE ×2 (03:14→04:29)
[2020-03-06] MEDS ORDERED: ONDANSETRON 4 MG/2 ML VIAL IV ONE (03:15)
[2020-03-06] MEDS ORDERED: MORPHINE SULFATE 2 MG/1 ML DISP.SYRIN IV ONE ×2 (03:15→04:30)
--- NOTE | 2020-03-06 05:27 | NUR ---
Pt asleep, no acute signs of distress.
--- NOTE | 2020-03-06 07:00 | NUR ---
Pt is on isolation due to possible COVID19 infection [employer] PREC
--- NOTE | 2020-03-06 07:05 | NUR ---
hand off and SBAR received from material handler 1st shift RN: Pt swabbed for COVID-19 at material handler 1st shift Pt is ok for admit under [facility] Dx: Pneumonia and L elbow Fracture Tele rm 210 Pending Report to TeleRN Pt is sitting on high narayanan's Aox1 with supplemental o2 at 2lpm via NC R forearm g20 intact
--- NOTE | 2020-03-06 07:37 | NUR ---
REPORT GIVEN TO DAVID (TELERM 210)
--- NOTE | 2020-03-06 08:00 | NUR ---
TRANSPORTED TO FLOOR WITH 2 TRANSPORT AID PER POLICY MAINTAINED ISOLATION PREC. PT ON SURGICAL MASK
[2020-03-06] MEDS ORDERED: ALBUTEROL SULFATE 8 GM HFA.AER.AD IH PRN (08:30)
[2020-03-06] MEDS ORDERED: diphenhydrAMINE 50 MG CAPSULE PO PRN (08:30)
[2020-03-06] MEDS ORDERED: ALBUTEROL SULFATE 2.5 MG/ 0.5 ML NEBU IH PRN (08:30)
[2020-03-06] MEDS ORDERED: Medication Not On Formulary EA (Mirabegron (Myrbetriq) 50 MG) PO SCH (09:00)
[2020-03-06] MEDS: DILTIAZEM HCL CD 240 MG CAP.SR.24H PO SCH (09:00)
[2020-03-06] MEDS: busPIRone 10 MG TABLET PO SCH ×2 (09:00→17:00)
[2020-03-06] MEDS ORDERED: Medication Not On Formulary EA (Buspirone Hcl 15 MG) PO SCH (09:00)
[2020-03-06] MEDS ORDERED: DIVALPROEX 500 MG TABLET.DR PO SCH ×3 (09:00→21:00)
[2020-03-06] MEDS: ESCITALOPRAM OXALATE 10 MG TABLET PO SCH (09:00)
[2020-03-06] MEDS: OXYBUTYNIN CHLORIDE 5 MG TABLET PO SCH ×3 (09:00→17:53)
[2020-03-06] MEDS: CYCLOBENZAPRINE HCL 10 MG TABLET PO SCH ×2 (09:00→17:51)
[2020-03-06] MEDS: DOCUSATE SODIUM 100 MG CAPSULE PO SCH ×2 (09:00→17:51)
[2020-03-06] MEDS: TRIAMCINOLONE ACET 0.1% ORABAS 5 GM TUBE DT SCH ×2 (09:00→17:51)
[2020-03-06] MEDS ORDERED: Medication Not On Formulary EA (Rivaroxaban (Xarelto) 1 TAB) PO SCH (09:00)
[2020-03-06] MEDS ORDERED: PANTOPRAZOLE SODIUM 40 MG TABLET.DR PO SCH (09:00)
[2020-03-06] MEDS: ASPIRIN 81 MG TAB.CHEW PO SCH (09:00)
[2020-03-06] MEDS: METOPROLOL TARTRATE 50 MG TABLET PO SCH ×2 (09:00→20:25)
[2020-03-06] MEDS ORDERED: DIVA500T4 PO ×2 (10:27→10:28)
[2020-03-06] MEDS: METOCLOPRAMIDE HCL 10 MG TABLET PO SCH ×3 (11:29→20:24)
[2020-03-06] MEDS: DIVALPROEX ER 500 MG TAB.SR.24H PO SCH ×2 (11:29→20:25)
[2020-03-06 11:56] VITALS: BP 131/59
--- NOTE | 2020-03-06 15:54 | NUR ---
received report from ER nurse. patient vitals taken. pt placed on oxygen. no skin issues noted upon assessment. comfort measures provided.
[2020-03-06 16:39] VITALS: BP 123/72
[2020-03-06] MEDS: RIVAROXABAN 10 MG TABLET PO SCH (17:53)
--- NOTE | 2020-03-06 19:30 | NUR ---
Received patient lying in bed. AAOX2-3. In no acute distress. Denies any pain or SOB at this time/ O2 sat at 93% on O2 at 2LPM via NC in place. VS WNL. NSR on tele at 80/min. IV site on right FA intact and patent. Droplet and contact precaution observed. Safety measure initiated and call dumont within reached.
[2020-03-06 20:04] VITALS: BP 122/63
[2020-03-06] MEDS: ATORVASTATIN 10 MG TABLET PO SCH (20:25)
[2020-03-06] MEDS ORDERED: ATORVASTATIN 10 MG TABLET PO SCH (21:00)
[2020-03-06 22:02] VITALS: BP 122/63
[2020-03-06] MEDS: HYDROCODONE/APAP 10-325 MG TABLET PO PRN (23:59)
[2020-03-07 00:02] VITALS: BP 136/68
[2020-03-07 04:02] VITALS: BP 132/69
--- NOTE | 2020-03-07 06:00 | NUR ---
Patient remains alert and oriented x2-3. In no acute distress. [place] PRN per order given for complain of left shoulder pain and effective. Still refused to have her left arm sling on. IV site on right FA remains intact and patent. On O2 at 2LPM via NC in place but patient often takes it off. Denies any SOB. Droplet and contact precaution maintained. Needs attended to and met. Safety measure maintained and call dumont within reached.
[2020-03-07] MEDS ORDERED: LEVOTHYROXINE SODIUM 100 MCG TABLET ONE (06:21)
[2020-03-07] MEDS: METOCLOPRAMIDE HCL 10 MG TABLET PO SCH ×4 (06:54→20:20)
[2020-03-07] MEDS: LEVOTHYROXINE SODIUM 200 MCG TABLET PO SCH (06:54)
[2020-03-07 07:37] LABS: BASOPHILS % (AUTO) 0.8 % (0.0-2.0); EOSINOPHILS % (AUTO) 0.4 % (0.0-7.0); HEMATOCRIT 36.8 % (31.2-41.9); HEMOGLOBIN 11.9 g/dL (10.9-14.3); LYMPHOCYTES # (AUTO) 1.2 K/uL (20.0-40.0); LYMPHOCYTES % (AUTO) 21.6 % (20.5-51.5); MEAN CORPUSCULAR HEMOGLOBIN 30.3 uug (24.7-32.8); MEAN CORPUSCULAR HGB CONC 32 g/dL (32.3-35.6); MEAN CORPUSCULAR VOLUME 93.8 fL (75.5-95.3); MONOCYTES # (AUTO) 1.1 K/uL (2.0-10.0); MONOCYTES % (AUTO) 19.8 % (0.0-11.0); NEUTROPHILS # (AUTO) 3.3 K/uL (1.8-8.9); NEUTROPHILS % (AUTO) 57.4 % (38.5-71.5); PLATELET COUNT (AUTO) 167 K/uL (179-408); RED BLOOD CELL COUNT(AUTO) 3.92 MIL/uL (3.63-4.92); WHITE BLOOD COUNT (AUTO) 5.7 K/uL (3.8-11.8)
[2020-03-07 08:03] LABS: BILIRUBIN,TOTAL 0.2 mg/dL (0.2-1.0); POTASSIUM 3.9 mmol/L (3.5-5.1); TOTAL PROTEIN, SERUM 6.4 g/dL (6.4-8.2)
[2020-03-07 08:24] LABS: EOSINOPHILS % (MANUAL) 2 % (0-8); LYMPHOCYTES % (MANUAL) 28 % (20-40); MONOCYTES % (MANUAL) 18 % (2-10); NEUTROPHILS % (MANUAL) 52 % (42-75)
[2020-03-07 08:50] VITALS: BP 136/84
[2020-03-07] MEDS: TRIAMCINOLONE ACET 0.1% ORABAS 5 GM TUBE DT SCH ×2 (08:54→16:55)
[2020-03-07] MEDS: busPIRone 10 MG TABLET PO SCH ×2 (08:58→16:54)
[2020-03-07] MEDS: ASPIRIN 81 MG TAB.CHEW PO SCH (08:58)
[2020-03-07] MEDS: OXYBUTYNIN CHLORIDE 5 MG TABLET PO SCH ×3 (08:59→16:54)
[2020-03-07] MEDS: DOCUSATE SODIUM 100 MG CAPSULE PO SCH ×2 (08:59→16:54)
[2020-03-07] MEDS: ESCITALOPRAM OXALATE 10 MG TABLET PO SCH (09:00)
[2020-03-07] MEDS: PANTOPRAZOLE SODIUM 40 MG TABLET.DR PO SCH (09:00)
[2020-03-07] MEDS: METOPROLOL TARTRATE 50 MG TABLET PO SCH ×2 (09:01→20:21)
[2020-03-07] MEDS: CYCLOBENZAPRINE HCL 10 MG TABLET PO SCH ×2 (09:02→16:54)
[2020-03-07] MEDS: DIVALPROEX ER 500 MG TAB.SR.24H PO SCH ×2 (09:07→20:19)
[2020-03-07] MEDS: HYDROCODONE/APAP 10-325 MG TABLET PO PRN ×2 (10:33→20:20)
[2020-03-07] MEDS: DILTIAZEM HCL CD 240 MG CAP.SR.24H PO SCH (10:33)
[2020-03-07 12:00] VITALS: BP 136/73
[2020-03-07 16:00] VITALS: BP 126/73
[2020-03-07] MEDS: RIVAROXABAN 10 MG TABLET PO SCH (17:13)
--- NOTE | 2020-03-07 19:30 | NUR ---
Received patient lying in bed. AAOX1-2. In no acute distress. Complained of generalized pain will provide pain medication per order. Denies any SOB at this time. O2 sat at 92% on O2 at 2LPM via NC in place. VS WNL. NSR on tele at 75/min. IV site on right FA intact and patent. Droplet and contact precaution observed. Needs assessed and attended to. Safety measure initiated and call dumont within reached.
[2020-03-07 20:00] VITALS: BP 116/62
[2020-03-07] MEDS: ATORVASTATIN 10 MG TABLET PO SCH (20:20)
[2020-03-08] VITALS: BP 115/61
[2020-03-08] MEDS: HYDROCODONE/APAP 10-325 MG TABLET PO PRN ×3 (02:43→17:33)
[2020-03-08] MEDS: LEVOTHYROXINE SODIUM 200 MCG TABLET PO SCH (06:10)
[2020-03-08] MEDS: PANTOPRAZOLE SODIUM 40 MG TABLET.DR PO SCH (06:11)
--- NOTE | 2020-03-08 06:23 | NUR ---
AAOX1-2. In no acute distress. No signs or symptoms of SOB. O2 at 2LPM via NC in place. NSR on tele at 79/min. IV site on right FA remains intact and patent. Droplet and contact precaution maintained. Safety measure maintained and call dumont within reached.
[2020-03-08] MEDS: METOCLOPRAMIDE HCL 10 MG TABLET PO SCH ×4 (06:35→20:38)
--- NOTE | 2020-03-08 08:00 | NUR ---
Pt is alert and oriented x4. Noted redness underneath right breast - dried out moisture and keep skin dry - applied z guard. Redness noted on MARYAM LE's. Pt is in no acute distress. Call light is within reach. Discussed plan of care with patient re: fall precaution and aspiration precaution. Pt agreeable with plan of care.
[2020-03-08] MEDS: ESCITALOPRAM OXALATE 10 MG TABLET PO SCH (09:09)
[2020-03-08] MEDS: ASPIRIN 81 MG TAB.CHEW PO SCH (09:09)
[2020-03-08] MEDS: METOPROLOL TARTRATE 50 MG TABLET PO SCH ×2 (09:09→20:38)
[2020-03-08] MEDS: DOCUSATE SODIUM 100 MG CAPSULE PO SCH ×2 (09:09→17:33)
[2020-03-08] MEDS: DILTIAZEM HCL CD 240 MG CAP.SR.24H PO SCH (09:10)
[2020-03-08] MEDS: busPIRone 10 MG TABLET PO SCH ×2 (09:10→17:33)
[2020-03-08] MEDS: TRIAMCINOLONE ACET 0.1% ORABAS 5 GM TUBE DT SCH ×2 (09:14→17:38)
[2020-03-08] MEDS: OXYBUTYNIN CHLORIDE 5 MG TABLET PO SCH ×3 (09:15→17:33)
[2020-03-08] MEDS: CYCLOBENZAPRINE HCL 10 MG TABLET PO SCH ×2 (09:52→17:33)
[2020-03-08] MEDS: DIVALPROEX ER 500 MG TAB.SR.24H PO SCH ×2 (09:52→20:39)
[2020-03-08] MEDS: ACETAMINOPHEN 325 MG TABLET PO PRN (09:52)
[2020-03-08 12:00] VITALS: BP 127/67
[2020-03-08] MEDS: CEFTRIAXONE 1 G in IV DEXTROSE 5% 50 ML IV SCH (13:35)
[2020-03-08 16:00] VITALS: BP 126/61
[2020-03-08] MEDS: RIVAROXABAN 10 MG TABLET PO SCH (17:50)
--- NOTE | 2020-03-08 18:30 | NUR ---
Pt is in no acute distress. Pt's pain managed with norco given x 2 for generalized pain. Pt's current pain level is 3/10. Call light is within reach.
--- NOTE | 2020-03-08 19:30 | NUR ---
Patient in bed, awake. Patient is AOx4. Patient denies any SOB or pain. Patient on 2L NC and saturating WNL. Patient's IV is patent and intact. Fall precaution initiated. Safety measures in place. Bed low and locked position. Call light within reach. Bed alarm on. Will continue with the plan of care.
[2020-03-08 20:04] VITALS: BP 128/75
[2020-03-08] MEDS: ATORVASTATIN 10 MG TABLET PO SCH (20:39)
[2020-03-09] VITALS: BP 133/80
[2020-03-09] MEDS: HYDROCODONE/APAP 10-325 MG TABLET PO PRN ×3 (01:54→17:34)
[2020-03-09 04:02] VITALS: BP 130/76
[2020-03-09] MEDS: PANTOPRAZOLE SODIUM 40 MG TABLET.DR PO SCH (06:32)
[2020-03-09] MEDS: LEVOTHYROXINE SODIUM 200 MCG TABLET PO SCH (06:33)
[2020-03-09] MEDS: METOCLOPRAMIDE HCL 10 MG TABLET PO SCH ×4 (06:33→20:25)
--- NOTE | 2020-03-09 06:49 | NUR ---
Patient slept intermittently throughout the night. Patient is awake. Patient denies acute distress. Patient complained of back pain at a scale of 9/10 and was given prescribed PRN [place] x1. Otherwise patient's vitals are stable. Patient was cooperative. IV is intact and patent. Fall prevention maintained. Safety measures in place. Bed low and locked position. Bed alarm on. Will endorse to the oncoming nurse accordingly.
[2020-03-09] MEDS: busPIRone 10 MG TABLET PO SCH ×2 (09:32→17:33)
[2020-03-09] MEDS: DOCUSATE SODIUM 100 MG CAPSULE PO SCH ×2 (09:32→17:33)
[2020-03-09] MEDS: OXYBUTYNIN CHLORIDE 5 MG TABLET PO SCH ×3 (09:32→17:33)
[2020-03-09] MEDS: ASPIRIN 81 MG TAB.CHEW PO SCH (09:32)
[2020-03-09] MEDS: DIVALPROEX ER 500 MG TAB.SR.24H PO SCH ×2 (09:33→20:25)
[2020-03-09] MEDS: CYCLOBENZAPRINE HCL 10 MG TABLET PO SCH ×2 (09:33→17:33)
[2020-03-09] MEDS: TRIAMCINOLONE ACET 0.1% ORABAS 5 GM TUBE DT SCH ×2 (09:33→17:00)
[2020-03-09] MEDS: ESCITALOPRAM OXALATE 10 MG TABLET PO SCH (09:33)
[2020-03-09] MEDS: METOPROLOL TARTRATE 50 MG TABLET PO SCH ×2 (09:40→20:25)
[2020-03-09 09:41] VITALS: BP 135/73
[2020-03-09] MEDS: DILTIAZEM HCL CD 240 MG CAP.SR.24H PO SCH (09:41)
[2020-03-09 12:06] VITALS: BP 146/65
[2020-03-09] MEDS: CEFTRIAXONE 1 G in IV DEXTROSE 5% 50 ML IV SCH (12:18)
[2020-03-09] MEDS: RIVAROXABAN 10 MG TABLET PO SCH (17:34)
--- NOTE | 2020-03-09 19:20 | NUR ---
Received patient lying in bed. AAOx3. In no acute distress. Denies any SOB. Often removes her O2. O2 sat at 91% on RA. Placed O2 back on and instructed patient not to remove. IV site on right FA intact and patent. NSR on tele at 76/min. Safety measure initiated and call dumont within reached.
[2020-03-09 20:05] VITALS: BP 120/63
[2020-03-09] MEDS: ATORVASTATIN 10 MG TABLET PO SCH (20:25)
[2020-03-09] MEDS: ACETAMINOPHEN 325 MG TABLET PO PRN (20:31)
[2020-03-09] MEDS: CEphaleXIN 500 MG CAPSULE PO SCH (21:30)
[2020-03-10 00:22] VITALS: BP 140/75
[2020-03-10] MEDS: ACETAMINOPHEN 325 MG TABLET PO PRN (03:40)
[2020-03-10 04:50] VITALS: BP 146/77
--- NOTE | 2020-03-10 06:25 | NUR ---
AAOx3. In no acute distress. Denies any SOB. [place] 10-325mg PO PRN per order given for complain of gen. pain and effective. O2 at 2LPM via NC in place. IV site on right FA intact and patent. NSR on tele at 72/min. Safety measure maintained and call dumont within reached.
[2020-03-10] MEDS: LEVOTHYROXINE SODIUM 200 MCG TABLET PO SCH (06:35)
[2020-03-10] MEDS: PANTOPRAZOLE SODIUM 40 MG TABLET.DR PO SCH (06:35)
[2020-03-10] MEDS: HYDROCODONE/APAP 10-325 MG TABLET PO PRN ×2 (06:35)
[2020-03-10] MEDS: CEphaleXIN 500 MG CAPSULE PO SCH ×2 (06:35→13:02)
[2020-03-10] MEDS: METOCLOPRAMIDE HCL 10 MG TABLET PO SCH ×2 (06:35→12:10)
--- NOTE | 2020-03-10 07:30 | NUR ---
Patient in bed, awake, alert and verbally responsive. No signs of distress noted. No SOB. No complain of Pain/discomfort at this time. Afebrile. Kept clean and comfortable. kept the call light within easy reach. Will continue to monitor.
[2020-03-10] MEDS: ASPIRIN 81 MG TAB.CHEW PO SCH (08:46)
[2020-03-10] MEDS: busPIRone 10 MG TABLET PO SCH (08:46)
[2020-03-10] MEDS: ESCITALOPRAM OXALATE 10 MG TABLET PO SCH (08:47)
[2020-03-10] MEDS: METOPROLOL TARTRATE 50 MG TABLET PO SCH (08:47)
[2020-03-10] MEDS: DILTIAZEM HCL CD 240 MG CAP.SR.24H PO SCH (08:47)
[2020-03-10] MEDS: CYCLOBENZAPRINE HCL 10 MG TABLET PO SCH (08:47)
[2020-03-10] MEDS: OXYBUTYNIN CHLORIDE 5 MG TABLET PO SCH ×2 (08:47→12:51)
[2020-03-10] MEDS: DIVALPROEX ER 500 MG TAB.SR.24H PO SCH (08:47)
[2020-03-10] MEDS: DOCUSATE SODIUM 100 MG CAPSULE PO SCH (08:47)
[2020-03-10] MEDS: TRIAMCINOLONE ACET 0.1% ORABAS 5 GM TUBE DT SCH (09:21)
[2020-03-10 12:13] VITALS: BP 147/74
--- NOTE | 2020-03-10 14:35 | NUR ---
Patient with Order to be discharge back to [facility], Patient is awake, alert and verbally responsive. No signs of distress noted. No SOB. No complain of Pain at this time. Discharge Instruction given and verbalized Understanding. All belongings was singed and sent with patient. Removed IV site, wrist band and court monitor. Patient was picked up by [facility] transportation in stable condition
== END 2020-03-10 14:38 | DRG 463 ==
LOC: ER 21:28 → TELE 03-06 07:39 → TELE3 03-08 11:55
PROVIDERS: ADMIT Internal Medicine Nephrology; ATTEND Internal Medicine
DX: N39.0 Urinary tract infection, site not specified (principal); G92 Toxic encephalopathy; E66.2 Morbid (severe) obesity with alveolar hypoventilation; I48.0 Paroxysmal atrial fibrillation; J44.9 Chronic obstructive pulmonary disease, unspecified; S52.132A Displaced fracture of neck of left radius, initial encounter for closed fracture; W19.XXXA Unspecified fall, initial encounter; E78.5 Hyperlipidemia, unspecified; F12.90 Cannabis use, unspecified, uncomplicated; G89.4 Chronic pain syndrome; K21.9 Gastro-esophageal reflux disease without esophagitis; F31.9 Bipolar disorder, unspecified; E03.9 Hypothyroidism, unspecified; Z86.711 Personal history of pulmonary embolism; Y93.9 Activity, unspecified; Y92.89 Other specified places as the place of occurrence of the external cause; B96.20 Unspecified Escherichia coli [E. coli] as the cause of diseases classified elsewhere; Z68.43 Body mass index [BMI] 50.0-59.9, adult; K58.9 Irritable bowel syndrome, unspecified; Z79.01 Long term (current) use of anticoagulants
CPT/HCPCS: 36415; 36600; 70030-TC; 70450; 71045; 72125; 73080; 80307; 80329; 83605; 84443; 85025; 85730; 86140; 87040; 87077; 87086; 87400; 93005; A4663; C1758; G0378; G0480-TC; J0696; J1720; J1956; J2270; J2405; J3535; J7060; J8597; Q0163; U0003-CS